=== PATIENT | female | born 1960 | race Caucasian/White ===

== ENCOUNTER 2017-02-18 07:23 | Emergency (ER) | payer BC ==
[2017-02-18 07:45] LABS: Glucose,Whole Blood 124 mg/dL (75-99)
[2017-02-18] MEDS ORDERED: ONDANSETRON 4 MG/2 ML VIAL IVP STA (07:58)
[2017-02-18] MEDS ORDERED: RX INFO: IV CONTRAST WAS GIVEN 1 EACH MISC MISCELLANE PRN (07:58)
[2017-02-18] MEDS ORDERED: SODIUM CHLORIDE 0.9% 1,000 ML IV STA (07:58)
[2017-02-18 08:16] LABS: Basophils % (A) 1 %; CH 31.2; CHCM 34.4; Eosinophils # (A) 0.1 k/uL (0-0.7); Eosinophils % (A) 2 %; HCT 39.3 % (34.0-46.0); HDW 2.68; HGB 13.6 gm/dL (11.4-16.0); Luc # (Auto) 0.12; Luc % (Auto) 3; Lymphocytes # (A) 1.2 k/uL (1.0-4.8); Lymphocytes % (A) 32 %; MCH 31.4 pg (25.0-35.0); MCHC 34.5 g/dL (31.0-37.0); Mean Platelet Volume 6.5; Monocytes # (A) 0.2 k/uL (0-1.0); Monocytes % (A) 6 %; Neutrophils % (A) 55 %; RBC 4.32 m/uL (3.80-5.40); RDW 12.9 % (11.5-15.5); WBC 3.7 k/uL (3.8-10.6); WBC (Perox) 3.69
--- NOTE | 2017-02-18 08:17 | ED ---
General Adult HPI - General Chief complaint: Neuro Symptoms/Deficit Stated complaint: DIZZINESS, RT SIDE HEAVYNESS Time Seen by Provider: 02/18/17 07:32 Source: patient, RN notes reviewed, old records reviewed Mode of arrival: wheelchair Limitations: no limitations - History of Present Illness Initial comments: This is a 56-year-old female the ER for evaluation today. Patient coming in for evaluation of neurological complaints. Patient complains of right-sided facial numbness overall dizziness, ataxia and facial heaviness. Patient states she woke with symptoms at 5:30 this morning. No prior history of similar symptoms. Denies any recent trauma no specific headache. No nausea vomiting. Patient states the room does appear to spin around especially when she looks from [id number], no preferences better. She had difficulty with walking and ambulation after getting out of bed. Symptoms have persisted. No high blood pressure normal cholesterol no diabetes and a nonsmoker. With no prior history of cardiac disease or stroke. Patient has no recent travel history or sick contacts, no known fevers, patient denies ear pain or difficulties with hearing or vision - Related Data Home Medications Medication Instructions Recorded Confirmed Fish Oil/Dha/Epa [Fish Oil 1,200 1,200 mg PO MOWEFR 07/03/15 02/18/17 mg Fish Oil] Levothyroxine Sodium [Synthroid] 88 mcg PO DAILY 07/03/15 02/18/17 Multivitamins, Thera [Theragran] 1 tab PO MOWEFR 07/03/15 02/18/17 Meloxicam [Mobic] 15 mg PO TUTHSA 07/28/16 02/18/17 Cholecalciferol [Vitamin D3] 1,000 unit PO MOWEFR 02/18/17 02/18/17 Cyanocobalamin (Vitamin B-12) 5,000 mcg PO MOWEFR 02/18/17 02/18/17 [Vitamin B12] Allergies Allergy/AdvReac Type Severity Reaction Status Date / Time amoxicillin AdvReac Rash/Hives Verified 02/18/17 08:03 tramadol AdvReac Confusion Verified 02/18/17 08:03 Review of Systems ROS Statement: Those systems with pertinent positive or pertinent negative responses have been documented in the HPI. ROS Other: All systems not noted in ROS Statement are negative. Past Medical History Past Medical History: Unable to Obtain, Fibromyalgia, GERD/Reflux, Skin Disorder , Thyroid Disorder Additional Past Medical History / Comment(s): Hypoglycemia, occ migraines, Shyla's, hx palipitations, chronic pain syndrome, hx anemia, History of Any Multi-Drug Resistant Organisms: None Reported Past Surgical History: No Surgical Hx Reported, Breast Surgery, Tubal Ligation Additional Past Surgical History / Comment(s): rt Breast biopsy. D&C, Past Anesthesia/Blood Transfusion Reactions: No Reported Reaction Past Psychological History: No Psychological Hx Reported Smoking Status: Never smoker Past Alcohol Use History: None Reported Past Drug Use History: None Reported Additional Drug Use History / Comment(s): medical card - Past Family History Mother Family Medical History: Deep Vein Thrombosis (DVT), Pulmonary Embolus Father Family Medical History: Cancer General Exam - General Exam Comments Initial Comments: NIH of 0, no focal deficit Limitations: no limitations General appearance: alert, in no apparent distress Head exam: Present: atraumatic, normocephalic, normal inspection Eye exam: Present: normal appearance, PERRL, EOMI, nystagmus. Absent: scleral icterus, conjunctival injection, periorbital swelling ENT exam: Present: normal exam, mucous membranes moist Neck exam: Present: normal inspection. Absent: tenderness, meningismus, lymphadenopathy Respiratory exam: Present: normal lung sounds bilaterally. Absent: respiratory distress, wheezes, rales, rhonchi, stridor Cardiovascular Exam: Present: regular rate, normal rhythm, normal heart sounds. Absent: systolic murmur, diastolic murmur, rubs, gallop, clicks GI/Abdominal exam: Present: soft, normal bowel sounds. Absent: distended, tenderness, guarding, rebound, rigid Extremities exam: Present: normal inspection, full ROM, normal capillary refill. Absent: tenderness, pedal edema, joint swelling, calf tenderness Back exam: Present: normal inspection Neurological exam: Present: alert, oriented X3, CN II-XII intact Psychiatric exam: Present: normal affect, normal mood Skin exam: Present: warm, dry, intact, normal color. Absent: rash Course Vital Signs 02/18/17 02/18/17 07:27 08:59 Pulse Rate 72 62 Respiratory 20 Rate Blood Pressure 171/83 151/64 O2 Sat by Pulse 100 Oximetry - Reevaluation(s) Reevaluation #1: 02/18/17 09:45 Patient showing no worsening of symptoms, states symptoms are improving and has been able to walk in emergency room without difficulty Reevaluation #2: 02/18/17 09:46 Again patient is without high blood pressure not cholesterol no diabetes a nonsmoker EKG Findings - EKG Comments: EKG Findings:: EKG shows normal sinus rhythm rate of 64, LA 150, QRS 84, QTC 418 Medical Decision Making - Medical Decision Making 56 female in the ER for evaluation. This patient presents for evaluation of dizziness, vertiginous symptoms. Worse with position, CT and CTA are negative, patient's symptoms are resolving as M able to ambulate without ataxia. Patient discussed at length 15 minutes was questions answered regarding causes and symptoms of vertigo versus cerebral, peripheral. Patient understands, will likely be discharged home - Lab Data Result diagrams: 02/18/17 07:47 02/18/17 07:47 Lab Results 02/18/17 02/18/17 02/18/17 Range/Units 07:43 07:47 07:47 WBC 3.7 L (3.8-10.6) k/uL RBC 4.32 (3.80-5.40) m/uL Hgb 13.6 (11.4-16.0) gm/dL Hct 39.3 (34.0-46.0) % MCV 91.0 (80.0-100.0) fL MCH 31.4 (25.0-35.0) pg MCHC 34.5 (31.0-37.0) g/dL RDW 12.9 (11.5-15.5) % Plt Count 214 (150-450) k/uL Neutrophils % 55 % Lymphocytes % 32 % Monocytes % 6 % Eosinophils % 2 % Basophils % 1 % Neutrophils # 2.0 (1.3-7.7) k/uL Lymphocytes # 1.2 (1.0-4.8) k/uL Monocytes # 0.2 (0-1.0) k/uL Eosinophils # 0.1 (0-0.7) k/uL Basophils # 0.0 (0-0.2) k/uL PT (9.0-12.0) sec INR (<1.1) APTT (22.0-30.0) sec Sodium (137-145) mmol/L Potassium (3.5-5.1) mmol/L Chloride (98-107) mmol/L Carbon Dioxide (22-30) mmol/L Anion Gap mmol/L BUN (7-17) mg/dL Creatinine (0.52-1.04) mg/dL Est GFR (MDRD) Af Amer (>60 ml/min/1.73 sqM) Est GFR (MDRD) Non-Af (>60 ml/min/1.73 sqM) Glucose (74-99) mg/dL POC Glucose (mg/dL) 124 H (75-99) mg/dL POC Glu [employer] ID Veronica Jiang Calcium (8.4-10.2) mg/dL Phosphorus (2.5-4.5) mg/dL Magnesium (1.6-2.3) mg/dL Total Bilirubin (0.2-1.3) mg/dL AST (14-36) U/L ALT (9-52) U/L Alkaline Phosphatase (38-126) U/L Total Creatine Kinase 67 (30-135) U/L CK-MB (CK-2) 1.0 (0.0-2.4) ng/mL CK-MB (CK-2) Rel Index 1.5 Troponin I <0.012 (0.000-0.034) ng/mL Total Protein (6.3-8.2) g/dL Albumin (3.5-5.0) g/dL Urine Color Urine Appearance (Clear) Urine pH (5.0-8.0) Ur Specific [place] (1.001-1.035) Urine Protein (Negative) Urine Glucose (UA) (Negative) Urine Ketones (Negative) Urine Blood (Negative) Urine Nitrite (Negative) Urine Bilirubin (Negative) Urine Urobilinogen (<2.0) mg/dL Ur Leukocyte Esterase (Negative) Ur Squamous Epith Cells (0-4) /hpf Amorphous Sediment (None) /hpf Urine Mucus (None) /hpf 02/18/17 02/18/17 02/18/17 Range/Units 07:47 07:47 09:19 WBC (3.8-10.6) k/uL RBC (3.80-5.40) m/uL Hgb (11.4-16.0) gm/dL Hct (34.0-46.0) % MCV (80.0-100.0) fL MCH (25.0-35.0) pg MCHC (31.0-37.0) g/dL RDW (11.5-15.5) % Plt Count (150-450) k/uL Neutrophils % % Lymphocytes % % Monocytes % % Eosinophils % % Basophils % % Neutrophils # (1.3-7.7) k/uL Lymphocytes # (1.0-4.8) k/uL Monocytes # (0-1.0) k/uL Eosinophils # (0-0.7) k/uL Basophils # (0-0.2) k/uL PT 10.1 (9.0-12.0) sec INR 1.0 (<1.1) APTT 21.3 L (22.0-30.0) sec Sodium 144 (137-145) mmol/L Potassium 4.0 (3.5-5.1) mmol/L Chloride 105 (98-107) mmol/L Carbon Dioxide 29 (22-30) mmol/L Anion Gap 10 mmol/L BUN 16 (7-17) mg/dL Creatinine 0.65 (0.52-1.04) mg/dL Est GFR (MDRD) Af Amer >60 (>60 ml/min/1.73 sqM) Est GFR (MDRD) Non-Af >60 (>60 ml/min/1.73 sqM) Glucose 129 H (74-99) mg/dL POC Glucose (mg/dL) (75-99) mg/dL POC Glu [employer] ID Calcium 9.6 (8.4-10.2) mg/dL Phosphorus 4.1 (2.5-4.5) mg/dL Magnesium 2.0 (1.6-2.3) mg/dL Total Bilirubin 0.5 (0.2-1.3) mg/dL AST 27 (14-36) U/L ALT 32 (9-52) U/L Alkaline Phosphatase 51 (38-126) U/L Total Creatine Kinase (30-135) U/L CK-MB (CK-2) (0.0-2.4) ng/mL CK-MB (CK-2) Rel Index Troponin I (0.000-0.034) ng/mL Total Protein 7.6 (6.3-8.2) g/dL Albumin 4.4 (3.5-5.0) g/dL Urine Color Light Yellow Urine Appearance Cloudy H (Clear) Urine pH 8.0 (5.0-8.0) Ur Specific [place] 1.038 H (1.001-1.035) Urine Protein Negative (Negative) Urine Glucose (UA) Negative (Negative) Urine Ketones Negative (Negative) Urine Blood Negative (Negative) Urine Nitrite Negative (Negative) Urine Bilirubin Negative (Negative) Urine Urobilinogen <2.0 (<2.0) mg/dL Ur Leukocyte Esterase Small H (Negative) Ur Squamous Epith Cells 1 (0-4) /hpf Amorphous Sediment Rare H (None) /hpf Urine Mucus Rare H (None) /hpf - Radiology Data Radiology results: report reviewed (CT brain, CTA head and neck is negative for acute disease, chest x-ray is negative for acute), image reviewed Disposition Clinical Impression: Vertigo, BPPV (benign paroxysmal positional vertigo) Disposition: HOME SELF-CARE Condition: Good Instructions: Vertigo (ED) Referrals: Rom Henriquez MD [STAFF PHYSICIAN] - 1-2 days
[2017-02-18 08:25] LABS: Prothrombin Time 10.1 sec (9.0-12.0)
[2017-02-18 08:30] LABS: ALT 32 U/L (9-52); AST 27 U/L (14-36); Alkaline Phosphatase 51 U/L (38-126); Anion Gap 10 mmol/L; Blood Urea Nitrogen 16 mg/dL (7-17); Calcium 9.6 mg/dL (8.4-10.2); Carbon Dioxide 29 mmol/L (22-30); Chloride 105 mmol/L (98-107); Glucose 129 mg/dL (74-99); Non-African American GFR(MDRD) >60 (>60 ml/min/1.73 sqM); Phosphorous 4.1 mg/dL (2.5-4.5); Sodium 144 mmol/L (137-145); Total Bilirubin 0.5 mg/dL (0.2-1.3); Total Protein 7.6 g/dL (6.3-8.2)
[2017-02-18 08:34] LABS: Partial Thromboplastin Time 21.3 sec (22.0-30.0)
[2017-02-18 08:36] LABS: Creatine Kinase 67 U/L (30-135)
[2017-02-18 08:48] LABS: Troponin I <0.012 ng/mL (0.000-0.034)
--- NOTE | 2017-02-18 08:59 | XR ---
EXAMINATION TYPE: XR chest 2V DATE OF EXAM: 02/18/2017 8:44 AM COMPARISON: 05/25/2016 HISTORY: Shortness of breath TECHNIQUE: Frontal and lateral views of the chest are obtained. FINDINGS: Scattered senescent parenchymal changes noted. Hyperinflation compatible with COPD. Mild increased density right medial lung base may reflect developing infiltrate and/or atelectasis. Heart size is stable. Mediastinal structures are stable and grossly unremarkable. No evidence for hilar prominence. Degenerative changes dorsal spine. IMPRESSION: 1. Mild increased density right medial lung base may reflect developing infiltrate and/or atelectasis .
--- NOTE | 2017-02-18 09:08 | CT ---
EXAMINATION TYPE: CT brain wo con DATE OF EXAM: 02/18/2017 9:05 AM COMPARISON: NONE HISTORY: Rt facial heaviness with dizziness CT DLP: brain [address] of the brain was performed. The ventricles, basal cisterns and sulci overlying the cerebral convexities demonstrate mild enlargem ent. There is no evidence for intracranial hemorrhage or sulcal effacement. There is decreased attenuation about the periventricular white matter and deep white matter of both c erebral hemispheres, compatible with chronic small vessel ischemia. Differential diagnosis does inclu de demyelination. No mass effects are seen.No midline shift. Osseous calvarium is intact. If symptoms persist consider MRI. IMPRESSION: 1. Age related atrophic and chronic small vessel ischemic change without acute intracranial process s een at this time.
--- NOTE | 2017-02-18 09:13 | CT ---
EXAMINATION TYPE: CT angio head neck DATE OF EXAM: 02/18/2017 9:05 AM COMPARISON: NONE HISTORY: Rt facial heaviness with dizziness CT DLP: brain 1036, neck 251.7 mGycm CONTRAST: Performed with IV Contrast, patient injected with 65 mL of Omnipaque 350. Combination Contrast CTA cervical carotids and [place] CTA cervical carotids with 3-D recons truction Contrast CTA of the cervical carotids was performed 3-D reconstruction imaging obtained at a separate workstation. Right carotid system: No significant plaque is seen of the right common carotid artery. There is No significant plaque also noted at the carotid bulb and proximal ICA. No significant diameter reductio n. ECA is patent. Right vertebral artery appears unremarkable. Left carotid system: No significant plaque is seen of the left common carotid artery. There is No si gnificant plaque also noted at the carotid bulb and proximal ICS. No significant diameter reduction. ECA is patent. Left vertebral artery appears unremarkable. IMPRESSION: 1. No significant diameter reduction to account for the patient's symptoms. CTA [place] with 3-D reconstruction Contrast CTA of the [place] was performed 3-D reconstruction imaging obtained at a separate workstation. Vertebrobasilar system as well as intracranial portions of the internal carotid arteries and their ma [place] tributaries are patent. I do not see evidence for sizable aneurysm or vascular malformation. Pl ease note MRI provides greater sensitivity and specificity. Visualized brain appears grossly unremar kable. IMPRESSION: 1. No siginificant abnormality.
[2017-02-18 09:34] LABS: Amorphous Sediment,Urine Rare /hpf; Appearance,Urine Cloudy (Clear); Bilirubin,Urine Negative (Negative); Glucose,Urine (UA) Negative (Negative); Ketones,Urine Negative (Negative); Leukocyte Esterase,Urine Small (Negative); Mucus,Urine Rare /hpf; Nitrite,Urine Negative (Negative); Particle Count 6960; Protein,Urine Negative (Negative); Specific Gravity,Urine 1.038 (1.001-1.035); Squamous Epithelial Cell,Urine 1 /hpf (0-4); UA Billing (MACRO vs. MICRO) MICRO; Urobilinogen,Urine <2.0 mg/dL (<2.0)
[2017-02-18 10:26] VITALS: BP 140/67; PULSE 75; RESP 18; TEMP 97
== END 2017-02-18 10:23 | disposition home or self-care (01) ==
LOC: EC 07:23
DX: H81.10 Benign paroxysmal vertigo, unspecified ear (principal); E07.9 Disorder of thyroid, unspecified; M79.7 Fibromyalgia; G89.4 Chronic pain syndrome; Z79.1 Long term (current) use of non-steroidal anti-inflammatories (NSAID); Z79.899 Other long term (current) drug therapy; Z88.0 Allergy status to penicillin; Z88.6 Allergy status to analgesic agent
CPT/HCPCS: 99285; 96374; 96361; 36415; 93005; 80053; 82550; 82553; 83735; 84100; 84484; 85025; 85610; 85730; 81001; 87086; 71020; 70496; 70450; 70498; Q9967; J2405

== ENCOUNTER → 2017-03-18 | Outpatient (CLI) | payer BC ==
--- NOTE | 2017-03-18 10:34 | MM ---
Reason for exam: clinical finding. Last mammogram was performed 1 year and 10 months ago. History: Patient is postmenopausal. Family history of breast cancer in maternal aunt and breast cancer in maternal cousin. Benign excisional biopsy of the right breast, 1996. Indicated problem(s): pain in the right breast. Physical Findings: Nurse did not find any significant physical abnormalities on exam. MG 3D Diag Mammo W/Cad ARSENIO Bilateral CC and MLO view(s) were taken. Prior study comparison: May 30, 2015, bilateral MG screening mammo w CAD. The breast tissue is heterogeneously dense. This may lower the sensitivity of mammography. There is no discrete abnormality including area of concern. No significant new findings when compared with previous films. These results were verbally communicated with the patient and result sheet given to the patient on 03/18/17. ASSESSMENT: Incomplete: need additional imaging evaluation, BI-RAD 0 RECOMMENDATION: Ultrasound of the right breast. Manage patient on a clinical basis.
--- NOTE | 2017-03-18 10:36 | USB ---
Reason for exam: additional evaluation requested from abnormal screening. History: Patient is postmenopausal. Family history of breast cancer in maternal aunt and breast cancer in maternal cousin. Benign excisional biopsy of the right breast, 1996. US Breast RT Right breast ultrasound includes all four quadrants, the retroareolar region and axilla. Finding demonstrates prominent ducts at 8 o'clock, dilated ducts at 9 o'clock and a 1.7 x 1.6 x 1.4cm hyperechoic node at the axilla. These results were verbally communicated with the patient and result sheet given to the patient on 03/18/17. ASSESSMENT: Probably benign, BI-RAD 3 RECOMMENDATION: Ultrasound of the right breast in 6 months. Manage patient on a clinical basis.
== END | disposition home or self-care (01) ==
LOC: RADMAMWWP 07:41
PROVIDERS: ATTEND Family Medicine
DX: N64.4 Mastodynia (principal); R92.8 Other abnormal and inconclusive findings on diagnostic imaging of breast
CPT/HCPCS: 76641; G0204; G0279

== ENCOUNTER → 2018-03-22 | Outpatient (CLI) | payer BC ==
--- NOTE | 2018-03-22 10:46 | XR ---
EXAMINATION TYPE: XR knee complete RT DATE OF EXAM: 03/22/2018 COMPARISON: NONE HISTORY: 57-year-old female right knee pain TECHNIQUE: 3 views FINDINGS: Mild to moderate degenerative spurring in the medial and patellofemoral compartments. Weightbearing v iew could better assess the degree of cartilage and joint space narrowing. There is a moderate knee j oint effusion. Extensor mechanism appears intact. No acute fracture or dislocation. IMPRESSION: 1. Osteoarthrosis involving the medial and patellofemoral compartments. Weightbearing view could bett er assess the degree of cartilage and joint space narrowing. 2. Moderate knee joint effusion. MRI could assess for internal derangement if indicated. 3. No acute osseous abnormality seen.
== END | disposition home or self-care (01) ==
LOC: RADXRMAIN 09:07
PROVIDERS: ATTEND Physician Assistant
DX: M17.11 Unilateral primary osteoarthritis, right knee (principal); M25.461 Effusion, right knee

== ENCOUNTER → 2018-04-10 | Outpatient (CLI) | payer BC ==
--- NOTE | 2018-04-10 13:51 | MR ---
EXAMINATION TYPE: MR knee RT wo con DATE OF EXAM: 04/10/2018 COMPARISON: NONE HISTORY: Right knee pain TECHNIQUE: Multiplanar, multisequence images of the knee is performed without IV contrast. FINDINGS: MEDIAL MENISCUS: Tear posterior horn medial meniscus. Anterior horn is intact. LATERAL MENISCUS: Anterior and posterior horns are intact without tear. CRUCIATE LIGAMENTS: The anterior and posterior cruciate ligaments are intact and unremarkable. COLLATERAL LIGAMENTS: The medial collateral ligament and lateral collateral ligament complex are inta ct and unremarkable. EXTENSOR MECHANISM: Visualized quadriceps and patellar tendons are intact. EFFUSION: Moderate suprapatellar joint effusion. POPLITEAL CYST: No popliteal/salas cyst. TRICOMPARTMENT SPACES: Moderate narrowing medial tibiofemoral joint space. Moderate patellofemoral bobbi int space narrowing. Patellar spur formation as well as a strain about the margins of the condyles an d tibial plateaus. CARTILAGE: Cartilaginous thinning noted without focal defect identified. BONE MARROW SIGNAL: Bone marrow contusion medial femoral condyle to a lesser extent edema of the medi al tibial plateau. No fracture visible. OTHER: No additional significant abnormality is appreciated. IMPRESSION: 1. Oblique tear posterior horn medial meniscus. 2. Joint effusion. 3. Changes of osteoarthritis.
== END | disposition home or self-care (01) ==
LOC: RADMRIMAIN 13:10
PROVIDERS: ATTEND Family Medicine
DX: S83.241A Other tear of medial meniscus, current injury, right knee, initial encounter (principal); M17.11 Unilateral primary osteoarthritis, right knee

== ENCOUNTER → 2018-10-18 | Outpatient (CLI) | payer BC | END | disposition home or self-care (01) | LOC: LABPAT 09:32 | PROVIDERS: ATTEND Orthopaedic Surgery | DX: Z01.812 Encounter for preprocedural laboratory examination (principal) | CPT/HCPCS: 87070 ==

== ENCOUNTER → 2018-10-18 | Outpatient (CLI) | payer BC ==
--- NOTE | 2018-10-18 10:02 | MM ---
Reason for exam: clinical finding. Last mammogram was performed 1 year and 7 months ago. History: Patient is postmenopausal. Family history of breast cancer in maternal aunt and breast cancer in maternal cousin. Benign excisional biopsy of the right breast, 1996. Physical Findings: Nurse did not find any significant physical abnormalities on exam. MG 3D Diag Mammo W/Cad ARSENIO Bilateral CC and MLO view(s) were taken. Prior study comparison: March 18, 2017, bilateral MG 3d diag mammo w/cad ARSENIO. May 30, 2015, bilateral MG screening mammo w CAD. The breast tissue is heterogeneously dense. This may lower the sensitivity of mammography. No significant new findings when compared with previous films. These results were verbally communicated with the patient and result sheet given to the patient on 10/18/18. ASSESSMENT: Benign, BI-RAD 2 RECOMMENDATION: Routine screening mammogram of both breasts in 1 year.
--- NOTE | 2018-10-18 10:56 | USB ---
Reason for exam: follow-up at short interval from prior study. History: Patient is postmenopausal. Family history of breast cancer in maternal aunt and breast cancer in maternal cousin. Benign excisional biopsy of the right breast, 1996. US Breast RT Right complete breast ultrasound includes all four quadrants, the retroareolar region and axilla. Finding demonstrates duct ectastia at 7 o'clock, 8 o'clock, 9 o'clock and at the posterior nipple. These results were verbally communicated with the patient and result sheet given to the patient on 10/18/18. ASSESSMENT: Benign, BI-RAD 2 RECOMMENDATION: Routine screening mammogram of both breasts in 1 year.
== END | disposition home or self-care (01) ==
LOC: RADMAMWWP 08:18
PROVIDERS: ATTEND Family Medicine
DX: N64.4 Mastodynia (principal)
CPT/HCPCS: 77062; 77066

== ENCOUNTER → 2018-10-27 | Outpatient (CLI) | payer BC ==
[2018-10-27 11:20] VITALS: BP 136/84; PULSE 87; RESP 18; TEMP 97.5; BMI 35.5
--- NOTE | 2018-10-27 11:42 | P.GSHP ---
History of Present Illness H&P Date: 10/27/18 Chief Complaint: breast pain The patient is a 58-year-old white female who is status post bilateral mammogram and right breast ultrasound on [id number]. The radiographic findings were felt to be benign and routine screening mammogram of both breasts of 1 year was recommended. The pain in under the right breast and extends up in the are of the axilla. It hurts with pressure and feels heavy. The patient has not noted any lumps or masses in her breast. No nipple discharge or changes. No history of trauma or infection in the breast. The pain in not cyclical. The patient does not smoke, however, her smokes 1 1/2 PPD. He does smoke in the house. She drinks at least 3 cups of caffeniated coffee/day. She does not drink pop. She eats chocolate daily. Family History: maternal grandmother: stomach maternal aunt: breast maternal aunt: breast second aunt maternal aunt: brain cancer maternal cousin: breast postmenopausal father: lymphoma paternal uncles (3): all cancer not know the type Hormonal history: Menarche:11 : 3, two live and one , age at first 18, breast fed: yes menopause: 49 BCP: 3 years hormones: none Past surgical history: 1. Right breast biopsy 2. knee surgery 3. tubal 4. freezing cervical dysplasia Past Medical History: 1. Shyla's thyroiditis 2. Fibromyalgia 3. Arthritis 4. History of pernicious anemia 5. low vitamen D Social History: smoke: none alcohol: 1 drink/month drugs: Medical marijuana for the fibromyalgia, uses daily - Constitutional Constitutional: Reports sweats - EENT Eyes: bilateral blurred vision (occasionally), denies pain Ears: deny: decreased hearing, tinnitus Ears, nose, mouth and throat: Denies headache, Denies sore throat - Breasts Breasts: bilateral: as per HPI - Cardiovascular Cardiovascular: Reports shortness of breath, Denies chest pain - Respiratory Respiratory: Denies cough, Denies 7 - Gastrointestinal Gastrointestinal: Denies abdominal pain, Denies diarrhea, Denies nausea, Denies vomiting - Genitourinary (Female) Genitourinary: Denies dysuria, Denies hematuria - Musculoskeletal Comment: arthritis Musculoskeletal: Reports myalgias - Integumentary Integumentary: Reports rash - Neurological Comment: Bels palsy - Psychiatric Psychiatric: Denies anxiety, Denies depression - Endocrine Comment: Shyla's thyroiditis - Hematologic/Lymphatic Comment: none - Allergic/Immunologic Allergic/Immunologic: Reports seasonal allergies Past Medical History Past Medical History: Fibromyalgia, GERD/Reflux, Skin Disorder, Thyroid Disorder Additional Past Medical History / Comment(s): Hypoglycemia, occ migraines, Shyla's, hx palipitations, chronic pain syndrome, hx anemia, History of Any Multi-Drug Resistant Organisms: None Reported Past Surgical History: Breast Surgery, Tubal Ligation Additional Past Surgical History / Comment(s): rt Breast biopsy; D&C; left knee surgery Past Anesthesia/Blood Transfusion Reactions: No Reported Reaction Past Psychological History: No Psychological Hx Reported Smoking Status: Never smoker Past Alcohol Use History: None Reported Past Drug Use History: None Reported Additional Drug Use History / Comment(s): medical card - Past Family History Mother Family Medical History: Deep Vein Thrombosis (DVT), Pulmonary Embolus Father Family Medical History: Cancer Medications and Allergies Home Medications Medication Instructions Recorded Confirmed Type Fish Oil/Dha/Epa [Fish Oil 1,200 1,200 mg PO MOWEFR 07/03/15 10/27/18 History mg Fish Oil] Levothyroxine Sodium [Synthroid] 88 mcg PO QAM 07/03/15 10/27/18 History Multivitamins, Thera [Theragran] 1 tab PO MOWEFR 07/03/15 10/27/18 History Meloxicam [Mobic] 15 mg PO HS 07/28/16 10/27/18 History Cholecalciferol [Vitamin D3] 1,000 unit PO MOWEFR 02/18/17 10/27/18 History Clobetasol Propionate [Temovate 1 applic TOPICAL DAILY 10/27/18 10/27/18 History 0.05% Oint] Allergies Allergy/AdvReac Type Severity Reaction Status Date / Time amoxicillin AdvReac Rash/Hives Verified 10/27/18 11:12 tramadol AdvReac Confusion Verified 10/27/18 11:12 Surgical - Exam Vital Signs Temp Pulse Resp BP Pulse Ox 97.5 F L 87 18 136/84 98 10/27/18 11:13 10/27/18 11:13 10/27/18 11:13 10/27/18 11:13 10/27/18 11:13 BMI 35.5 - General well developed, well nourished, no distress - Eyes normal ocular movement - ENT no hearing loss, no congestion - Neck no masses, trachea midline - Respiratory normal respiratory effort, clear to auscultation absent: dullness, wheezing, rales - Cardiovascular Rhythm: regular Heart Sounds: normal: S1, S2 - Abdomen Abdomen: soft, non tender, no guarding, no rigid, no rebound - Integumentary normal turgor - Neurologic no disoriented, no combative - Psychiatric oriented to time, oriented to person, oriented to place, speech is normal, memory intact Breast examination: Right breast: Multi-positional examination no dominant masses or nodules of concern; the right breast is slightly larger than the left breast, on examination there is mild tenderness to palpation of the inframammary fold area as well as the lateral aspect of the breast extending up towards the axilla no discrete masses are noted in this region Right axilla: No adenopathy of concern Left breast: Multi-positional examination no dominant masses or nodules of concern Left axilla: No adenopathy of concern Results Mammogram and ultrasound results reviewed Assessment and Plan Assessment: Impression: 1. Fibrocystic breast changes with right breast discomfort 2. Asymmetry of the breast with the right being slightly larger than the left 3. No discrete masses in the breast of concern 4. Fibromyalgia 6. Arthritis 7. Shyla's thyroiditis Plan: 1. The pain in the breast is most likely secondary to fibrocystic changes we will discuss decreasing caffeine intake as well as exposure to secondhand smoke 2. Medical management of medical conditions 3. Repeat bilateral mammogram in 1 year 4. Follow up sooner if any questions of concern 5. Medical management of medical conditions Cc: Dr. Anderson
== END | disposition home or self-care (01) ==
LOC: WWCWWP 11:06
PROVIDERS: ATTEND Surgery
DX: Z53.9 Procedure and treatment not carried out, unspecified reason (principal)

== ENCOUNTER 2018-11-21 09:03 | Inpatient (IN) | payer BC ==
[2018-11-16 08:51] VITALS: BMI 35.5
--- NOTE | 2018-11-20 08:43 | HP ---
HISTORY AND PHYSICAL CHIEF COMPLAINT: Right knee pain. HISTORY OF PRESENT ILLNESS: The patient is a 58-year-old, self-employed female who presents with progressive right knee pain for the past several years. It has worsened recently. She is having pain with weightbearing activities that limit her. She has tried medications in addition to injections with only partial temporary relief. PAST MEDICAL HISTORY: Significant for hypothyroidism, arthritis, hyperlipidemia. PAST SURGICAL HISTORY: Negative. CURRENT MEDICATIONS: 1. Levothyroxine. 2. Mobic. She has allergies to AMOXICILLIN and TRAMADOL. FAMILY HISTORY: Significant for heart disease and cancer. SOCIAL HISTORY: Negative for current tobacco or alcohol use. REVIEW OF SYSTEMS: A 16 point review of systems otherwise reviewed and is noncontributory. PHYSICAL EXAMINATION: On examination, the patient is approximately 5 foot tall, 180 pounds of endomorphic habitus. HEENT exam is nonfocal. Neck is supple. She has painless passive motion of the right hip. Straight leg raise is negative, active motion right knee, -10 to 105 degrees of flexion. She has a moderate effusion. She is tender about the medial joint line. Collaterals are stable, Alex is negative, Ray's is equivocal. She has genu varum alignment. Her distal neurovascular exam otherwise appears intact in the right lower extremity. X-rays obtained in the office previously show severe medial compartment osteoarthrosis. IMPRESSION: Right knee severe medial compartment osteoarthrosis. RECOMMENDATIONS: I talked to the patient at length regarding her condition and treatment options. She is quite limited because of pain related to her osteoarthrosis despite conservative measures. She opts to proceed with surgery. We will plan to proceed with right total knee arthroplasty. Risks and benefits are discussed at length in layman's terms. We will institute DVT prophylaxis postoperatively. The patient underwent preoperative medical evaluation and clearance by Dr. Anderson. MMODL / IJN: [id number] /
[~2018-11-21 09:03] MED LIST: LIDOCAINE 1% 20 ML VIAL (10MG/ML) FOR IV START INTRADERMA PRN; MIDAZOLAM (PF) 2 MG/2 ML VIAL IV PRN; SCOPOLAMINE 1.5MG/72HR PATCH TRANSDERM ONE; TRANEXAMIC ACID 1,000 MG in SODIUM CHLORIDE 0.9% 50 ML IVPB ONE; ceFAZolin IN SWFI 2 GM/20 ML SYRINGE IVP ONE
[2018-11-21] MEDS: ACETAMINOPHEN TAB 500 MG TAB PO ONE ×2 (09:36→15:53)
[2018-11-21] MEDS: MELOXICAM 7.5 MG TAB PO ONE ×2 (09:36→15:53)
[2018-11-21] MEDS: LACTATED RINGERS 1,000 ML IV SCH (09:45)
[2018-11-21 09:48] LABS: Glucose,Whole Blood 105 mg/dL (75-99)
[2018-11-21] MEDS: DEXAMETHASONE SOD PHOSPHATE 10 MG/ML 1 ML VIAL IV ONE ×2 (09:53→16:12)
[2018-11-21] MEDS: ONDANSETRON 4 MG/2 ML VIAL IVP ONE ×2 (09:53→16:13)
[2018-11-21] MEDS ORDERED: ROPIVACAINE 246.25 MG, EPINEPHrine 0.5 MG, KETOROLAC 30 MG, cloNIDine HCL/PF 80 MCG, WA... MISCELLANE ONE ×5 (09:55)
--- NOTE | 2018-11-21 10:15 | P.OP ---
Date of Procedure: 11/21/18 Preoperative Diagnosis: Severe left knee tricompartmental osteoarthrosis Postoperative Diagnosis: Same Procedure(s) Performed: Left total knee arthroplasty-posterior stabilized-cemented Implants: Depuy Attune size 6 narrow cemented femoral component, size 5 cemented tibial component, 9 mm articular surface, 35 mm cemented patellar component. This is a posterior stabilized implant. Anesthesia: regional, local, spinal Surgeon: Brandt Adame Record Pressman #1: Juan Oakes Estimated Blood Loss (ml): 50 Pathology: other (Bone fragments) Condition: stable Disposition: PACU Indications for Procedure: The patient's a 58-year-old female who presents with progressive left knee pain secondary to osteoarthrosis despite conservative measures. A discussion of the risks and benefits of operative intervention versus continued conservative measures was made with patient. She opted to proceed with surgery. Operative risks to include infection, neurovascular injury, development of blood clots, possible fracture, possible component loosening and need for subsequent procedures was discussed. Informed consent was obtained. Operative Findings: as below Description of Procedure: The patient was brought to the operating room, and after induction of spinal anesthesia the left lower extremity was prepped and draped in a normal fashion. The tourniquet was inflated to 270 mm marker. A longitudinal incision extending 3 finger breaths above the superior pole of patella extending to the medial aspect the tibial tubercle was then made. The skin and subcutaneous tissues were divided sharply. Electrocautery was used for hemostasis. A medial parapatellar arthrotomy was performed. The medial soft tissues to include the superficial and deep portions of the medial collateral ligament were elevated subperiosteally. The patella was everted. A portion of the retropatellar fat pad was excised sharply. The anterior cruciate ligament was sacrificed. Blunt retractors were placed. A starting hole was made in the distal femur 1 cm anterior to the posterior cruciate ligament origin. An intramedullary femoral guide was then inserted planning on 5 valgus distal cut with 9 mm distal resection. The cutting block was pinned in place. The distal cut was then made. The posterior referencing sizing guide was utilized. I felt size 6 was most appropriate. 3 of external rotation was built into the system and verified off the trans-epicondylar axis and the posterior condyles. The cutting block was pinned in place. The anterior, posterior, and chamfer cuts then made. Bone fragments were removed. The intercondylar guide was placed and the notch cut was made with a sagittal saw. The bone block was removed in one fragment. The trial component was then placed. There is good anterior to posterior and medial to lateral fit. The distal peg holes were drilled. The trial component was removed. Attention was then paid towards preparing the proximal femur. An extra medullary guide was utilized in line with the tibial shaft and second metatarsal distally. I planned on 2 mm resection from the medial compartment. The cutting block was pinned in place. The proximal tibial cut was then made. The bone was removed in one fragment. The remnants of the medial and lateral menisci were excised at the capsular junction with electrocautery. The tibia sized most appropriately at size 5. The trial femoral and tibial components were placed along with a 9 mm articular surface. I was able to obtain full flexion and extension with internal and external rotation. After several flexion and extension cycles, the tibial rotation was marked with electrocautery line with the medial one third of the tibial tubercle. Attention was then paid towards preparing the patella. A patella reamer was utilized taking stem to 14 mm of bone stock. A good flush cut was made. The patella sized most appropriately 35 mm. The peg holes were drilled. The trial components placed. I had good patellofemoral tracking with no hands technique. The trial components were then removed. The tibia was prepared in the appropriate rotation with appropriate drill and keel punch. The posterior osteophytes were removed with a curved osteotome. The flexion and extension gaps were checked and felt to be symmetric at 9 mm. A trial components were then removed. The posterior soft tissues were injected with ropivacaine. The bony surfaces were prepared with pulsatile lavage and dried. The tibial component was then cemented place was fully seated. Excess cement was removed. The femoral component cemented place and was fully seated. Excess cement was removed. The trial 9 mm articular surface was placed and the knee was put in full extension. The patella component was cemented place. After the cement had sufficiently hardened, the knee was again taken through a range of motion. Again I was able to obtain full flexion and extension with varus and valgus stress. The trial 9 mm articular surface was removed and the final one inserted. This was fully seated. Care was taken to avoid any soft tissue interposition. Pulsatile lavage was again utilized. The medial parapatellar arthrotomy was closed with #2 Ethibond suture. The tourniquet was deflated with approximately 60 total tourniquet time. Final hemostasis was obtained with the cautery. There was minimal bleeding therefore a deep drain was not placed. The subcutaneous tissues were reapproximated with interrupted 2 -0 Vicryl sutures. The skin was reapproximated with 3-0 subcuticular strata fix suture. Skin tape and adhesive was applied. A sterile dressing was applied. The patient was awoken from sedation and transferred to recovery room in good condition. Blood loss was estimated at 50 mL. No complications were incurred. Sponge and needle counts were correct at the end of the case. Robb ROMERO assisted during the major components of this case to include exposure , bone resection, implantation, and closure.
[2018-11-21] MEDS ORDERED: ROPIVACAINE 1,100 MG, SODIUM CHLORIDE 0.9% 500 ML 330 ML MISCELLANE PRN ×2 (10:29)
--- NOTE | 2018-11-21 10:31 | P.ONQ ---
Anesthesiology Proc Note - PNB - Peripheral Nerve Block Performed Right Adductor Canal Infusion Time Out Performed: Yes (1007) Procedure Start Time: 10:10 Procedure Stop Time: 10:20 Indication: Acute Post-Operative Pain, Dx/Pain Location (Right Knee Pain), Requested by physician Sedation Type: Sedate with meaningful contact maintained Preparation: Sterile Prep Position: Supine Catheter: Indwelling Needle Types: On-Q Needle Size: 100mm (4") Technique: Ultrasound Injectate: 0.5% Ropivacaine (see comment for volume) (20ml) Blood Aspirated: No Pain Paresthesia on Injection Noted: No Resistance on Injection: Normal Events: Uneventful and Well Tolerated
[2018-11-21] MEDS ORDERED: SODIUM CHLORIDE 0.9% 100 ML BAG ONE (10:45)
[2018-11-21] MEDS ORDERED: TRANEXAMIC ACID 1,000 MG/10 ML VIAL ONE (10:45)
[2018-11-21] MEDS ORDERED: fentaNYL (PF) 50 MCG/ML 2 ML AMP ONE (10:45)
[2018-11-21] MEDS ORDERED: PROPOFOL 10 MG/ML 20 ML VIAL IV ONE (10:45)
[2018-11-21] MEDS ORDERED: MIDAZOLAM 2 MG/2 ML VIAL ONE (10:45)
[2018-11-21] MEDS ORDERED: ceFAZolin 3,000 MG in SODIUM CHLORIDE 0.9% IRRIGATIO 3,000 ML IRRIGATION ONE (11:21)
[2018-11-21] MEDS ORDERED: LACTATED RINGERS 1,000 ML IV ONE (11:41)
[2018-11-21] MEDS ORDERED: MAGNESIUM HYDROXIDE 2,400 MG/10 ML CUP PO PRN (12:19)
[2018-11-21] MEDS ORDERED: ONDANSETRON 4 MG/2 ML VIAL IVP PRN (12:19)
[2018-11-21] MEDS ORDERED: NALOXONE 0.4 MG/ML 1 ML VIAL IV PRN (12:19)
[2018-11-21] MEDS ORDERED: HYDROmorphone 0.5 MG/0.5 ML SYRINGE IVP PRN ×2 (12:19)
[2018-11-21] MEDS ORDERED: HYDROcodone/APAP 5-325MG 1 EACH TAB PO PRN (12:19)
--- NOTE | 2018-11-21 12:47 | P.OP ---
Date of Procedure: 11/21/18 Preoperative Diagnosis: Right knee severe tricompartmental osteoarthrosis Postoperative Diagnosis: Same Procedure(s) Performed: Right total knee mblqvgdxlrsu-otlueovz-tvwvyrot retaining Implants: Depuy Attune size 4 narrow cemented femoral component, size 4 cemented tibial component, 10 mm articular surface, 32 mm cemented patellar component. This is a cruciate retaining implant. Anesthesia: regional, local, spinal Surgeon: Brandt Adame Outbound Telemarketer #1: Juan Oakes Estimated Blood Loss (ml): 50 Pathology: other (Bone fragments) Condition: stable Disposition: PACU Indications for Procedure: The patient is a 58-year-old female who presents with progressive right knee pain secondary osteoarthrosis despite conservative measures. A discussion of the risks and benefits of operative intervention versus continued conservative measures was made with the patient. She opted proceed with surgery. Operative risks to include infection, neurovascular injury, development of blood clots, possible component loosening, possible component failure and need for subsequent procedures was discussed. Informed consent was obtained. Operative Findings: As below Description of Procedure: The patient was brought to the operating room, and after induction of spinal anesthesia the right lower extremity was prepped and draped in a normal fashion. The tourniquet was inflated to 270 mmHg. A longitudinal incision extending 3 finger breaths above the superior pole of the patella extending to the medial aspect the tibial tubercle was then made. The skin and subcutaneous tissues were divided sharply. Electrocautery was used for hemostasis. A medial parapatellar arthrotomy was then performed. The medial soft tissues to include the superficial and deep portions of the medial collateral ligament as well as the medial hamstring tendons were elevated subperiosteally. The proximal medial tibia osteophytes were carefully removed. The patella was everted. The knee was flexed. A portion of the retropatellar fat pad was excised sharply. The anterior cruciate ligament was sacrificed. A starting hole was made in the distal femur 1 cm anterior to the posterior cruciate origin. An intramedullary femoral guide was gently inserted planning on 5 valgus distal cut with 9 mm distal resection. The cutting block was pinned in place. The distal cut was then made. The posterior referencing sizing guide was utilized. 3 of external rotation was built into the system and verified off the trans-epicondylar axis and the posterior condyles. I felt size 4 narrow was most appropriate. The cutting block was pinned in place. The anterior, posterior, and chamfer cuts were then made. The bone fragments were removed. A sulcus cut was then made with the appropriate guide. The trial size for femoral component was then placed and was fully seated. There was good anterior to posterior and medial to lateral fit. The distal peg holes were then drilled. The trial component was then removed. Attention was then paid towards preparing the proximal tibia. An extra medullary guide was utilized in line with the tibial shaft and second metatarsal distally. A 7 posterior slope was planned. I planned on 2 mm resection from the medial compartment. The cutting block was pinned in place. The proximal tibial cut was then made. The bone was removed in one fragment. The remnants of the medial and lateral menisci were excised the capsule junction with electrocautery. The tibia sized most appropriately at size 4. The posterior osteophytes off the distal femur were carefully removed with a curved osteotome. The trial tibial and femoral components were placed along with a 10 millimeters articular surface. I was able to obtain full flexion and extension with good stability with varus and valgus stress. After several flexion and extension cycles, the tibial rotation was marked with electrocautery in line with the medial one third of the tibial tubercle. Attention was then paid towards preparing the patella. A patella reamer was utilized taking this down to 14 mm of bone stock. A good flush cut was made. The patella sized most appropriately at 32 millimeters. The peg holes were then drilled. The trial component was placed. The knee was taken through a range of motion. I had good patellofemoral tracking with no hands technique. The trial components were then removed. The tibia was prepared in the appropriate rotation with appropriate drill and keel punch. The flexion and extension gaps were checked and felt to be symmetric. The posterior soft tissues were injected with ropivacaine. The bony surfaces were prepared with pulsatile lavage and dried. The deep tibial component was then cemented in place and was fully seated. Excess cement was removed. The femoral component was cemented in place and was fully seated. Again excess cement was removed. The trial 10 millimeters surface was then inserted in the knee was put in full extension. The patella component was cemented in place. After the cement had sufficiently hardened, the knee was again taken through a range of motion. Again there was good stability in flexion and extension with varus and valgus stress. The trial articular surface was then removed. The final articular surface was placed and was impacted. Care was taken to avoid any soft tissue interposition. Pulsatile lavage was again utilized. The tourniquet was deflated with approximately 70 minutes total tourniquet time. There was minimal drainage therefore a deep drain was not placed. The medial parapatellar arthrotomy was then closed with #2 Ethibond suture. The subcutaneous tissues were reapproximated interrupted 2-0 Vicryl sutures. The skin was reapproximated with 3-0 subarticular strata fix suture. Skin tape and adhesive was applied. A sterile dressing was applied. The patient was then awoken from sedation and transferred to recovery room in good condition. Blood loss was estimated at 50 milliliters. No complications were incurred. Sponge and needle counts were correct at the end the case. Robb ROMERO assisted during the major components this case to include exposure, bone resection, and implantation.
--- NOTE | 2018-11-21 13:10 | XR ---
EXAMINATION TYPE: XR knee limited RT DATE OF EXAM: 11/21/2018 CLINICAL HISTORY: Right knee pain and arthritis status post total knee replacement. TECHNIQUE: Portable AP and crosstable lateral views of the right knee are obtained immediately posto peratively. COMPARISON: Right knee x-ray March 22, 2018 FINDINGS: Metallic hardware from total right knee arthroplasty is seen and appears satisfactory in a lignment and position. There is evidence of recent surgery with diffuse subcutaneous gas and soft ti ssue swelling noted. IMPRESSION: METALLIC HARDWARE FROM TOTAL RIGHT KNEE ARTHROPLASTY IS SATISFACTORY IN ALIGNMENT.
[2018-11-21] MEDS: HYDROmorphone 0.5 MG/0.5 ML SYRINGE IVP PRN ×2 (13:36→14:09)
[2018-11-21] MEDS: ceFAZolin IN SWFI 2 GM/20 ML SYRINGE IVP SCH (20:01)
[2018-11-21] MEDS ORDERED: SENNOSIDES-DOCUSATE SODIUM 1 EACH TAB PO SCH (21:00)
[2018-11-21] MEDS: HYDROcodone/APAP 5-325MG 1 EACH TAB PO PRN (22:19)
[2018-11-22 02:27] VITALS: RESP 16
[2018-11-22] MEDS: ceFAZolin IN SWFI 2 GM/20 ML SYRINGE IVP SCH (02:44)
[2018-11-22] MEDS: HYDROcodone/APAP 5-325MG 1 EACH TAB PO PRN ×2 (04:59→10:18)
[2018-11-22] MEDS: LACTATED RINGERS 1,000 ML IV SCH (05:43)
[2018-11-22] MEDS ORDERED: LEVOTHYROXINE 88 MCG TAB PO SCH (06:30)
--- NOTE | 2018-11-22 06:59 | P.PN ---
Progress Note - Text Progress Note Date: 11/22/18 Postoperative day # 1 status post total knee arthroplasty, under spinal anesthesia, and adductor canal catheter placed for postoperative analgesia, currently at ropivacaine 0.2% 8 mL per hour and continuous infusion, visual analogue scale is 3/10, patient using oral pain medication for breakthrough pain. Assessment and plan= Acute postoperative pain, adductor canal catheter for pain control, pain is well controlled we'll continue the same management.
[2018-11-22 07:27] VITALS: BP 107/68; PULSE 64; TEMP 98
[2018-11-22 08:22] LABS: Basophils % (A) 0 %; Eosinophils % (A) 0 %; HCT 34.4 % (34.0-46.0); HGB 11.1 gm/dL (11.4-16.0); Lymphocytes # (A) 1.7 k/uL (1.0-4.8); Lymphocytes % (A) 15 %; MCH 30.5 pg (25.0-35.0); MCHC 32.3 g/dL (31.0-37.0); MCV 94.4 fL (80.0-100.0); Mean Platelet Volume 6.9; Monocytes # (A) 0.7 k/uL (0-1.0); Monocytes % (A) 6 %; Neutrophils # (A) 8.7 k/uL (1.3-7.7); Neutrophils % (A) 78 %; Platelet Count 212 k/uL (150-450); RBC 3.64 m/uL (3.80-5.40); RDW 12.8 % (11.5-15.5); WBC 11.3 k/uL (3.8-10.6)
[2018-11-22] MEDS ORDERED: RIVAROXABAN 10 MG TAB PO SCH (09:00)
--- NOTE | 2018-11-22 10:55 | P.PN ---
Subjective Progress Note Date: 11/22/18 Principal diagnosis: Status post right total knee arthroplasty Patient is evaluated at bedside today, she is doing very well. Her pain is well -controlled. She is ambulating well with therapy. Denies any chest pain or shortness of breath at this time. Objective - Vital Signs Vital signs: Vital Signs Temp 98 F 11/22/18 07:26 Pulse 64 11/22/18 07:26 Resp 16 11/22/18 07:26 BP 107/68 11/22/18 07:26 Pulse Ox 93 L 11/22/18 07:26 Intake & Output 11/21/18 11/22/18 11/22/18 18:59 06:59 18:59 Intake Total 1827 450 Output Total 50 Balance 1777 450 Weight 82.554 kg Intake: IV 1601 Oral 226 450 Output: Estimated Blood Loss 50 Other: Voiding Method Toilet # Voids 1 - Exam Right lower extremity: Incision is clean, dry, and intact. The exofin fusion tape is in good condition. There is minimal soft tissue swelling and ecchymosis surrounding the medial and lateral aspects of the incision. Calf is soft, no tenderness with palpation. Plantar flexion, dorsiflexion, EHL, FHL are intact. Sensory exam to light touch throughout the extremity is intact, dorsal pedis pulses 2+. - Labs CBC & Chem 7: 11/22/18 07:30 Labs: Abnormal Lab Results - Last 24 Hours (Table) 11/22/18 Range/Units 07:30 WBC 11.3 H (3.8-10.6) k/uL RBC 3.64 L (3.80-5.40) m/uL Hgb 11.1 L (11.4-16.0) gm/dL Neutrophils # 8.7 H (1.3-7.7) k/uL Assessment and Plan Plan: Assessment: Postop day #1 status post right total knee arthroplasty Plan: Pain control, we'll discharge home on oral medication GI and DVT prophylaxis, Eliquis 2.5mg bid for 2 weeks Wound care instructions discussed Home therapy and nursing after discharge Medical recommendations Discharge planning: Plan for discharge home today Time with Patient: Less than 30
--- NOTE | 2018-11-22 11:00 | P.DS ---
Providers Date of admission: 11/21/18 09:03 Expected date of discharge: 11/22/18 Attending physician: Brandt Adame Consults: 11/21/18 12:19 Consult Physician Routine Consulting Provider: Sunny Anderson Consult Reason/Comments: medical management Do you want consulting provider notified?: Yes 11/21/18 15:16 Consult Physician Routine Consulting Provider: Chuckie Jansen Consult Reason/Comments: medical management Do you want consulting provider notified?: Yes Primary care physician: Sunny Anderson Hospital Course: Date of admission: 11/21/2018 Date of discharge: 11/22/2018 Admission diagnosis: Status post right total knee arthroplasty Discharge diagnosis: Same Attending physician: Dr. Adame Surgical procedures: Right total knee arthroplasty Brief history: Patient is a 58-year-old female with a history of progressive primary right knee osteoarthritis. At this point patient has failed conservative treatment measures and has opted to proceed with a elective right total knee arthroplasty. Hospital course: Details of patient's surgery can be found in operative report. Patient tolerated the procedure well and was subsequently transported to orthopedic floor. Patient's orthopeidc and medical care was provided daily. Patient had daily laboratory tests performed for evaluation of overall blood counts. Patient had daily physical therapy to include strengthening range of motion as well as education with walker ambulation. Patient had daily CPM usage as part of their physical therapy program. Patient was treated with Xarelto for their postoperative DVT prophylaxis during their inpatient stay. Patient was noted to have a relatively uneventful postoperative course. Patient reported satisfactory pain control with oral pain medications by postoperative day 0. Patient showed satisfactory progress with physical therapy. Patient moved steadily through the program and had no difficulty meeting the goals by postoperative day 1. Given patient's otherwise satisfactory course and having met physical therapy goals, plan is to discharge patient home on postoperative day 1. Discharge condition/disposition: Patient will be discharged home in stable condition. Discharge medications: Instructions are given on resumption of patient's normal daily medications per primary care recommendation, in addition patient will be prescribed Marianna 5 mg/325 mg, Colace 100 mg, Eliquis 2.5mg. Discharge instructions: 1. Wound care and infection precautions, keep incision dry and covered while showering, no lotions, creams, moisturizers. No soaking, tubs, pools, hottubs. Do not scrub over the incision. 2. Weight-bear as tolerated with walker / cane until follow-up. 3. Ice and elevate when necessary. Do not exceed 20 minutes per hour with ice pack. 4. Utilize compression sleeve until seen at first follow up appointment. 5. Visiting nursing care. 6. Home physical therapy including home CPM. 7. Pain meds and anticoagulants per prescription. 8. Pain medication has potential to cause constipation. Increase oral fluid and fiber intake. Contact primary care provider if you have not had a bowel movement within 48 hours after discharge 9. No anti-inflammatory medication until discussed at first post operative visit, this including Motrin, Aleve, Mobic, Diclofenac. 10. Follow up in office at 2 weeks postop with Robb Oakes PA-C 11. Follow up with your primary care doctor 7-10 days after discharge. 12. Contact [facility] with any questions, . Procedures: Right total knee arthroplasty Patient Condition at Discharge: Good Plan - Discharge Summary Discharge Rx Participant: Yes New Discharge Prescriptions: New Apixaban [Eliquis] 2.5 mg PO BID #30 tab Docusate [Colace] 100 mg PO DAILY #30 capsule Hydrocodone/Acetaminophen [Marianna 5-325] 1 each PO Q6HR PRN #28 tab PRN Reason: Pain No Action Levothyroxine Sodium [Synthroid] 88 mcg PO QAM Multivitamins, Thera [Theragran] 1 tab PO MOWEFR Meloxicam [Mobic] 15 mg PO HS Loratadine-Pseudoeph 10-240 mg [Claritin-D 24 Hr] 1 tab PO Q48H Discharge Medication List Levothyroxine Sodium [Synthroid] 88 mcg PO QAM 07/03/15 [History] Multivitamins, Thera [Theragran] 1 tab PO MOWEFR 07/03/15 [History] Meloxicam [Mobic] 15 mg PO HS 07/28/16 [History] Loratadine-Pseudoeph 10-240 mg [Claritin-D 24 Hr] 1 tab PO Q48H 11/16/18 [ History] Apixaban [Eliquis] 2.5 mg PO BID #30 tab 11/22/18 [Rx] Docusate [Colace] 100 mg PO DAILY #30 capsule 11/22/18 [Rx] Hydrocodone/Acetaminophen [Marianna 5-325] 1 each PO Q6HR PRN #28 tab 11/22/18 [Rx] Follow up Appointment(s)/Referral(s): Sunny Anderson DO [Primary Care Provider] - 1 Week Juan Oakes PAC [PHYSICIAN RADIOLOGY RN] - 12/06/18 3:10 pm Activity/Diet/Wound Care/Special Instructions: Orthopedic Discharge Instructions: 1. Wound care and infection precautions, keep incision dry and covered while showering, no lotions, creams, moisturizers. No soaking, pools, hot tubs. Do not scrub over incision. 2. Weight-bear as tolerated with walker / cane until follow-up. 3. Ice and elevate when necessary. Do not exceed 20 minutes per hour with ice pack. 4. Utilize compression sleeve until seen at first follow up appointment. 5. Pain meds and anticoagulants per prescription. 6. Pain medication has potential to cause constipation. Increase oral fluid and fiber intake. Contact primary care provider if you have not had a bowel movement within 48 hours after discharge. 7. No anti-inflammatory medication until discussed at first post operative visit, this including Motrin, Aleve, Mobic, Diclofenac. 8. Follow up in office at 2 weeks postop with Robb Oakes PA-C 9. Follow up with your primary care doctor 7-10 days after discharge. 10. Contact [facility] with any questions, . Discharge Disposition: HOME WITH HOME HEALTH SERVICES
[2018-11-22] MEDS ORDERED: MULTIVITAMINS, THERA 1 EACH TAB PO SCH (12:00)
--- NOTE | 2018-11-22 12:46 | CONS ---
CONSULTATION DATE OF CONSULTATION: 11/22/2018 REASON FOR CONSULTATION: Medical management requested by Dr. Adame. CONSULTATION: This is a pleasant 58-year-old patient of Dr. Anderson who underwent right total knee arthroplasty by Dr. Adame. Chronic stable medical conditions include fibromyalgia, GERD, osteoarthritis, chronic pain, which she refers to the entire body. Postprocedure, she did walk with a therapist. Some pain is present. No nausea, vomiting or dizziness. Denies any cardiac history. Did tolerate to have breakfast. REVIEW OF SYSTEMS: CONSTITUTIONAL: None. HEENT: None. RESPIRATORY: None. CARDIOVASCULAR: None. GASTROINTESTINAL: None. GENITOURINARY: None. MUSCULOSKELETAL: Pain in joints and achiness all over the body. PSYCHIATRY: None. NEUROLOGICAL: None. PAST MEDICAL HISTORY: Past medical history of fibromyalgia, GERD, hypothyroid, osteoarthritis, chronic pain in the whole body, history of anemia, dermatitis. PAST SURGICAL HISTORY: Breast surgery, tubal ligation, right breast biopsy, left meniscus repair. SOCIAL HISTORY: Does not smoke. No alcohol. Does medical marijuana for sleeping. Is a massage therapist. FAMILY HISTORY: Family history of DVT and PE. HOME MEDICATIONS: 1. Multivitamin 1 tablet p.o. Tuesday, Tuesday and Tuesday. 2. Mobic 15 mg p.o. q.h.s. 3. Claritin-D 1 tablet p.o. q.48 hours. 4. Synthroid 88 mcg a day. 5. Assaria 5 one tablet q.6 p.r.n. 6. Colace 100 mg p.o. daily. 7. Eliquis 2.5 p.o. b.i.d. We will check what she takes that for. ALLERGIES: Allergies to AMOXICILLIN and ULTRAM. PHYSICAL EXAMINATION: On examination, temperature 98, pulse 64, respirations 16, blood pressure 107/68, pulse ox 93% on room air. GENERAL APPEARANCE: Well built, BMI 35.5. Sitting up on a chair, comfortable. EYES: Pupils equal. Conjunctivae normal. HENT: External appearance of nose and ears normal. Oral cavity normal. NECK: JVD not raised. Mass not palpable. RESPIRATORY: Effort normal. Lungs are clear. CARDIOVASCULAR: First and second sounds normal. No edema. ABDOMEN: Soft, nontender. Liver and spleen not palpable. LYMPHATIC: No lymph node palpable of the neck or axillae. PSYCHIATRY: Alert and oriented x3. Mood and affect normal. NEUROLOGICAL: Pupils equal. Cranial nerves grossly intact. Power and sensation grossly intact. MUSCULOSKELETAL: Evidence of arthritis especially in the hands. INVESTIGATIONS: White count 11.3, hemoglobin 11.1. ASSESSMENT: 1. Right total knee arthroplasty. 2. Primary osteoarthritis. 3. Chronic fibromyalgia. 4. Gastroesophageal reflux disease. 5. Hypothyroid. 6. Obesity, body mass index 35.5. PLAN: Home medications resumed. The patient has been started on Xarelto for DVT prophylaxis by Dr. Adame. Care was discussed with the patient. Questions were answered. If discharged, she should follow with Dr. Anderson. Thank you Dr. Adame. MMODL / IJN: [id number] /
== END 2018-11-22 14:45 | disposition home health service (06) | DRG 470 ==
LOC: 2ORMAIN 09:03 → 4SSUR 15:10
PROVIDERS: ADMIT Orthopaedic Surgery; ATTEND Orthopaedic Surgery
PROC: 0SRC0J9 Replacement of Right Knee Joint with Synthetic Substitute, Cemented, Open Approach (ICD-10-PCS; principal; 2018-11-21 10:35)
DX: M17.11 Unilateral primary osteoarthritis, right knee (principal); D64.9 Anemia, unspecified; M79.7 Fibromyalgia; E03.9 Hypothyroidism, unspecified; K21.9 Gastro-esophageal reflux disease without esophagitis; M21.161 Varus deformity, not elsewhere classified, right knee; G89.29 Other chronic pain; L30.9 Dermatitis, unspecified; E78.5 Hyperlipidemia, unspecified; E66.9 Obesity, unspecified; Z68.35 Body mass index [BMI] 35.0-35.9, adult; Z79.1 Long term (current) use of non-steroidal anti-inflammatories (NSAID); Z79.890 Hormone replacement therapy; Z79.899 Other long term (current) drug therapy; Z98.51 Tubal ligation status; Z88.5 Allergy status to narcotic agent; Z88.0 Allergy status to penicillin; Z82.49 Family history of ischemic heart disease and other diseases of the circulatory system; Z80.9 Family history of malignant neoplasm, unspecified
CPT/HCPCS: 85025; 88300

== ENCOUNTER → 2019-10-22 | Outpatient (CLI) | payer BC ==
--- NOTE | 2019-10-22 13:21 | MM ---
Reason for exam: screening (asymptomatic). Last mammogram was performed 1 year ago. History: Patient is postmenopausal. Family history of breast cancer in maternal aunt and breast cancer in maternal cousin. Benign excisional biopsy of the right breast, 1996. Physical Findings: A clinical breast exam by your physician is recommended on an annual basis and results should be correlated with mammographic findings. MG 3D Screening Mammo W/Cad Bilateral CC and MLO view(s) were taken. Prior study comparison: October 18, 2018, bilateral MG 3d diag mammo w/cad [facility]. March 18, 2017, bilateral MG 3d diag mammo w/cad [facility]. The breast tissue is heterogeneously dense. This may lower the sensitivity of mammography. There is an upper outer quadrant obscured 6mm mass 3-3.5cm from nipple on the right. No suspicious abnormality on the left. ASSESSMENT: Incomplete: need additional imaging evaluation, BI-RAD 0 RECOMMENDATION: Special view mammogram and ultrasound of the right breast. [facility] will attempt to contact patient to return for supplemental views and ultrasound.
== END | disposition home or self-care (01) ==
LOC: RADMAMWWP 08:25
PROVIDERS: ATTEND Surgery
DX: Z12.31 Encounter for screening mammogram for malignant neoplasm of breast (principal)
CPT/HCPCS: 77063; 77067

== ENCOUNTER → 2019-11-13 | Outpatient (CLI) | payer BC, MEDICAID ==
--- NOTE | 2019-11-14 08:05 | MM ---
Reason for exam: additional evaluation requested from abnormal screening. Last mammogram was performed 1 month ago. History: Patient is postmenopausal. Family history of breast cancer in maternal aunt and breast cancer in maternal cousin. Benign excisional biopsy of the right breast, 1996. Physical Findings: Nurse did not find any significant physical abnormalities on exam. MG 3D Work Up W/Cad RT CC and MLO view(s) were taken of the right breast. Prior study comparison: October 22, 2019, bilateral MG 3d screening mammo w/cad. October 18, 2018, bilateral MG 3d diag mammo w/cad [facility]. The breast tissue is heterogeneously dense. This may lower the sensitivity of mammography. The previously seen abnormality resolves on additional views and appears as fibroglandular tissue compatible with summation. These results were verbally communicated with the patient and result sheet given to the patient on 11/13/19. ASSESSMENT: Negative, BI-RAD 1 RECOMMENDATION: Return to routine screening mammogram schedule for both breasts.
== END | disposition home or self-care (01) ==
LOC: RADMAMWWP 14:56
PROVIDERS: ATTEND Surgery
DX: R92.8 Other abnormal and inconclusive findings on diagnostic imaging of breast (principal)
CPT/HCPCS: 77061; 77065

== ENCOUNTER → 2020-10-15 | Outpatient (CLI) | payer MEDICAID | END | disposition home or self-care (01) | LOC: LABPAT 14:14 | PROVIDERS: ATTEND Orthopaedic Surgery | DX: Z01.812 Encounter for preprocedural laboratory examination (principal) | CPT/HCPCS: 87070 ==

== ENCOUNTER 2020-11-11 06:28 | Day surgery (SDC) | payer MEDICAID ==
[2020-11-04 14:19] VITALS: BMI 35.2
--- NOTE | 2020-11-10 08:52 | HP ---
HISTORY AND PHYSICAL CHIEF COMPLAINT: Left knee pain. 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 It has worsened recently. She has tried previous medications in addition to injections with only partial temporary relief. She also had a previous left knee arthroscopy. PAST MEDICAL HISTORY: Significant for hypothyroidism, anemia, and arthritis. PAST SURGICAL HISTORY: Significant for knee arthroscopy and breast surgery. CURRENT MEDICATIONS: Levothyroxine and meloxicam. FAMILY HISTORY: Significant for cancer, heart disease. SOCIAL HISTORY: Otherwise negative. ALLERGIES: She has allergies to AMOXICILLIN and TRAMADOL. 16 POINT REVIEW OF SYSTEMS: Otherwise is reviewed and is noncontributory. PHYSICAL EXAMINATION: On examination, patient is approximately 5 foot tall, 180 pounds of endomorphic habitus. HEENT exam is nonfocal. Neck is supple. She has painless passive motion of her left hip. Straight leg raise is negative. Active motion left knee -12 to 90 degrees of flexion. She is tender about the medial joint line. She has a large effusion. Collaterals are stable, Alex is negative, Ray's is equivocal. She has genu varum alignment. Her distal neurovascular exam appears intact in the left lower extremity. Weightbearing notch, lateral and Merchant views of the left knee obtained in the office show severe medial compartment osteoarthrosis. IMPRESSION: 1. Left knee severe medial compartment osteoarthrosis. 2. Increased body mass index. 3. History of anemia. RECOMMENDATIONS: I talked to the patient at length regarding her condition and treatment options. At this point, she remains quite symptomatic despite extensive previous conservative measures. After thorough discussion, she opts to proceed with surgery. We will plan to proceed with left total knee arthroplasty. Risks and benefits were discussed at length in layman's terms. We will institute DVT prophylaxis postoperatively. MMODL / IJN: [id number] /
[~2020-11-11 06:28] MED LIST changes: +ACETAMINOPHEN TAB 500 MG TAB PO PRN; +DEXAMETHASONE SOD PHOSPHATE 4 MG/ML 1 ML VIAL IV ONE; -LIDOCAINE 1% 20 ML VIAL (10MG/ML) FOR IV START INTRADERMA PRN; +MELOXICAM 7.5 MG TAB PO PRN; -MIDAZOLAM (PF) 2 MG/2 ML VIAL IV PRN; +MIDAZOLAM 2 MG/2 ML VIAL IV PRN; +ONDANSETRON 4 MG/2 ML VIAL IVP ONE; +ROPIVACAINE 246.25 MG, EPINEPHrine 0.5 MG, KETOROLAC 30 MG, cloNIDine HCL/PF 80 MCG, WA... MISCELLANE PRN; -SCOPOLAMINE 1.5MG/72HR PATCH TRANSDERM ONE; +TRANEXAMIC ACID 1,000 MG in SODIUM CHLORIDE 0.9% 100 ML IVPB PRN; -TRANEXAMIC ACID 1,000 MG in SODIUM CHLORIDE 0.9% 50 ML IVPB ONE; -ceFAZolin IN SWFI 2 GM/20 ML SYRINGE IVP ONE
[2020-11-11] MEDS: LACTATED RINGERS 1,000 ML IV SCH ×2 (07:01→23:49)
[2020-11-11] MEDS ORDERED: MIDAZOLAM 2 MG/2 ML VIAL IV ONE (07:58)
[2020-11-11] MEDS ORDERED: SODIUM CHLORIDE 0.9% 100 ML BAG ONE (08:05)
[2020-11-11] MEDS ORDERED: PROPOFOL 10 MG/ML 20 ML VIAL IV ONE (08:05)
[2020-11-11] MEDS ORDERED: fentaNYL (PF) 50 MCG/ML 2 ML AMP ONE (08:05)
[2020-11-11] MEDS ORDERED: MIDAZOLAM 2 MG/2 ML VIAL ONE (08:05)
[2020-11-11] MEDS ORDERED: TRANEXAMIC ACID 1,000 MG/10 ML VIAL ONE (08:05)
[2020-11-11] MEDS ORDERED: ceFAZolin 3,000 MG in SODIUM CHLORIDE 0.9% IRRIGATIO 3,000 ML IRRIGATION ONE (08:36)
[2020-11-11] MEDS ORDERED: NALOXONE 0.4 MG/ML 1 ML VIAL IV PRN (09:43)
[2020-11-11] MEDS ORDERED: HYDROmorphone 0.5 MG/0.5 ML SYRINGE IVP PRN (09:43)
[2020-11-11] MEDS ORDERED: MAGNESIUM HYDROXIDE 2,400 MG/10 ML CUP PO PRN (09:43)
[2020-11-11] MEDS ORDERED: HYDROcodone/APAP 7.5-325MG 1 EACH TAB PO PRN (09:43)
[2020-11-11] MEDS ORDERED: HYDROmorphone 1 MG/ML 1 ML SYRINGE IVP PRN (09:43)
[2020-11-11] MEDS ORDERED: ONDANSETRON 4 MG/2 ML VIAL IVP PRN (09:43)
[2020-11-11] MEDS ORDERED: ACETAMINOPHEN TAB 325 MG TAB PO PRN (09:43)
[2020-11-11] MEDS ORDERED: ROPIVACAINE 0.2%-NS ON-Q PUMP 1,090 MG, EMPTY PAIN BALL 1 EACH MISCELLANE PRN (09:53)
--- NOTE | 2020-11-11 09:56 | P.ANPRN ---
Procedure Note - Anesthesia - Nerve Block Performed Left Adductor Canal Infusion Time Out Performed: Yes Date of Procedure: 11/11/20 Procedure Start Time: 07:58 Procedure Stop Time: 08:07 Location of Patient: PreOp Indication: Acute Post-Operative Pain, Requested by Surgeon Sedation Type: Sedate with meaningful contact maintained Preparation: Sterile Prep, Sterile Dressing Position: Supine Catheter: Indwelling Needle Types: Pajunk Needle Gauge: 21 Ultrasound used to visualize needle placement: Yes Ultrasound used to observe medication spread: Yes Blood Aspirated: No Pain Paresthesia on Injection Noted: No Resistance on Injection: Normal Image Stored and Saved: Yes Events: Uneventful and Well Tolerated (ropi .5% 20 cc plus dexamethasone 4mg)
[2020-11-11] MEDS ORDERED: LACTATED RINGERS 1,000 ML IV ONE (10:03)
--- NOTE | 2020-11-11 10:21 | P.OP ---
Date of Procedure: 11/11/20 Preoperative Diagnosis: Left knee severe tricompartmental osteoarthrosis Postoperative Diagnosis: Same Procedure(s) Performed: Left total knee arthroplastycementedcruciate retaining Implants: Depuy Attune size 4 narrow cemented femoral component, size 3 cemented tibial component, 9 mm articular surface, 32 mm cemented patellar component. Anesthesia: regional, local, spinal Surgeon: Brandt Adame Patrol Mother #1: Juan Oakes Estimated Blood Loss (ml): 50 Pathology: other (Bone fragments) Condition: stable Disposition: PACU Indications for Procedure: The patient's a 60-year-old female who presents with progressive left knee pain secondary to osteoarthrosis despite conservative measures. A discussion of the risks and benefits of operative intervention versus continued conservative measures was made with patient. She opted to proceed with surgery. Operative risks to include infection, neurovascular injury, development of blood clots, fracture, possible component loosening, possible component failure need for s ubsequent procedures was discussed. Informed consent was obtained. Operative Findings: As below Description of Procedure: The patient was brought to the operating room, and after induction of spinal anesthesia the left lower extremity was prepped and draped in a normal fashion. The tourniquet was inflated to 270 mmHg. A longitudinal incision extending 3 finger breaths above the superior pole of the patella extending to the medial aspect the tibial tubercle was then made. The skin and subcutaneous tissues were divided sharply. Electrocautery was used for hemostasis. A medial parapatellar arthrotomy was then performed. The medial soft tissues to include the superficial and deep portions of the medial collateral ligament as well as the medial hamstring tendons were elevated subperiosteally. The proximal medial tibia osteophytes were carefully removed. The patella was everted. The knee was flexed. A portion of the retropatellar fat pad was excised sharply. The anterior cruciate ligament was sacrificed. A starting hole was made in the distal femur 1 cm anterior to the posterior cruciate origin. An intramedullary femoral guide was gently inserted planning on 5 valgus distal cut with 9 mm distal resection. The cutting block was pinned in place. The distal cut was then made. The posterior referencing sizing guide was utilized. 3 of external rotation was built into the system and verified off the trans- epicondylar axis and the posterior condyles. I felt size 4 narrow was most appropriate. The cutting block was pinned in place. The anterior, posterior, and chamfer cuts were then made. The bone fragments were removed. A sulcus cut was then made with the appropriate guide. The trial size 4 narrow femoral component was then placed and was fully seated. There was good anterior to posterior and medial to lateral fit. The distal peg holes were then drilled. The trial component was then removed. Attention was then paid towards preparing the proximal tibia. An extra medullary guide was utilized in line with the tibial shaft and second metatarsal distally. A 7 posterior slope was planned. I planned on 2 mm resection from the medial compartment. The cutting block was pinned in place. The proximal tibial cut was then made. The bone was removed in one fragment. The remnants of the medial and lateral menisci were excised the capsule junction with electrocautery. The tibia sized most appropriately at size 3. The posterior osteophytes off the distal femur were carefully removed with a curved osteotome. The trial tibial and femoral components were placed along with a 9 millimeters articular surface. I was able to obtain full flexion and extension with good stability with varus and valgus stress. After several flexion and extension cycles, the tibial rotation was marked with electrocautery in line with the medial one third of the tibial tubercle. Attention was then pa id towards preparing the patella. A patella reamer was utilized taking this down to 14 mm of bone stock. A good flush cut was made. The patella sized most appropriately at 32 millimeters. The peg holes were then drilled. The trial component was placed. The knee was taken through a range of motion. I had good patellofemoral tracking with no hands technique. The trial components were then removed. The tibia was prepared in the appropriate rotation with appropriate drill and keel punch. The flexion and extension gaps were checked and felt to be symmetric. The posterior soft tissues were injected with ropivacaine. The bony surfaces were prepared with pulsatile lavage and dried. The deep tibial component was then cemented in place and was fully seated. Excess cement was removed. The femoral component was cemented in place and was fully seated. Again excess cement was removed. The trial 9 millimeters surface was then inserted in the knee was put in full extension. The patella component was cemented in place. After the cement had sufficiently hardened, the knee was again taken through a range of motion. Again there was good stability in flexion and extension with varus and valgus stress. The trial articular surface was then removed. The final articular surface was placed and was impacted. Care was taken to avoid any soft tissue interposition. Pulsatile lavage was again utilized. The tourniquet was deflated with approximately 60 minutes total tourniquet time. There was minimal drainage therefore a deep drain was not placed. The medial parapatellar arthrotomy was then closed with #2 Ethibond suture. The subcutaneous tissues were reapproximated interrupted 2-0 Vicryl sutures. The skin was reapproximated with 3-0 subarticular strata fix suture. Skin tape and adhesive was applied. A sterile dressing was applied. The patient was then awoken from sedation and transferred to recovery room in good condition. Blood loss was estimated at 50 milliliters. No complications were incurred. Sponge and needle counts were correct at the end the case. Robb ROMERO assisted during the major components this case to include exposure, bone resection, and implantation.
--- NOTE | 2020-11-11 10:56 | XR ---
EXAMINATION TYPE: XR knee limited LT DATE OF EXAM: 11/11/2020 COMPARISON: 06/08/2016 HISTORY: Postop left knee TECHNIQUE: 2 view left knee FINDINGS: Tibial and femoral components of in place. No acute fractures are evident. Postsurgical sof t tissue changes are present. IMPRESSION: 1. No acute fractures post knee replacement
[2020-11-11] MEDS: HYDROmorphone 0.5 MG/0.5 ML SYRINGE IVP PRN ×2 (11:33→11:41)
[2020-11-11] MEDS: HYDROcodone/APAP 5-325MG 1 EACH TAB PO PRN (18:10)
--- NOTE | 2020-11-11 20:39 | P.CONS ---
History of Present Illness - Reason for Consult Consult date: 11/11/20 Medical management Requesting physician: Brandt Adame - Chief Complaint Left knee surgery - History of Present Illness History of presenting complaint: This is a 60-year-old patient TO Tahmina samson progressive arthritic symptoms in the left knee. Going on for quite some time. Patient has tried conservative measures with no help. Pain is pretty much localized to the left knee. Was with activity and better with rest. Has undergone left total knee arthroplasty today. No nausea vomiting. Review of systems: GEN.: None EYES: None HEENT: None NECK: None RESPIRATORY: None CARDIOVASCULAR: None GASTROINTESTINAL: None GENITOURINARY: None MUSCULOSKELETAL: Joint pains LYMPHATICS: None HEMATOLOGICAL: None PSYCHIATRY: None NEUROLOGICAL: None Past medical history to include: Fibromyalgia, GERD, osteoarthritis, hypothyroid, Shyla's disease, chronic pain syndrome Social history: Does not smoke. Alcohol occasionally. Marijuana edibles. 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 Physical examination: VITAL SIGNS: 97.5, 71, 20, 1 26 x 72, 96% room air GENERAL: BMI 35.4, sitting up, not in distress. EYES: Pupils equal. Conjunctiva normal. HEENT: External appearance of nose and ears normal, oral cavity grossly normal. NECK: JVD not raised; masses not palpable. HEART: First and second heart sounds are normal; no edema. LUNGS: Respiratory rate normal; clear to auscultation. MUSCULAR skeletal: Dressing over the left knee. Evidence of OA ABDOMEN: Soft, nontender, liver spleen not palpable, no masses palpable. PSYCH: Alert and oriented x3; mood and affect normal. NEUROLOGICAL: Cranial nerves grossly intact; no facial asymmetry, power and sensation grossly intact. LYMPHATICS: No lymph nodes palpable in the axilla and neck Assessment: -Left total knee arthroplasty -Primary osteoarthritis -Chronic fibromyalgia -GERD -Hypothyroid - Plan: Home medications resumed. Patient received IV Ancef for antibiotic prophylaxis. Getting xarelto for DVT prophylaxis. Care was discussed with the patient and questions answered. Follow-up with PCP upon discharge. Thank you Dr. Arredondo Past Medical History Past Medical History: Fibromyalgia, GERD/Reflux, Osteoarthritis (OA), Thyroid Disorder Additional Past Medical History / Comment(s): Hypoglycemia, occ migraines, Shyla's, hx palipitations, chronic pain syndrome, hx anemia, History of Any Multi-Drug Resistant Organisms: None Reported Past Surgical History: Breast Surgery, Joint Replacement, Tubal Ligation Additional Past Surgical History / Comment(s): total rt knee, rt Breast biopsy; D&C; left knee meniscus surgery, total left knee (11/11/20). Past Anesthesia/Blood Transfusion Reactions: Previous Problems w/ Anesthesia Additional Past Anesthesia/Blood Transfusion Reaction / Comm: takes longer to wake up Past Psychological History: No Psychological Hx Reported Smoking Status: Never smoker Past Alcohol Use History: Occasional Past Drug Use History: Marijuana Additional Drug Use History / Comment(s): medical card, edibles - Past Family History Mother Family Medical History: Deep Vein Thrombosis (DVT), Pulmonary Embolus Father Family Medical History: Cancer Medications and Allergies Home Medications Medication Instructions Recorded Confirmed Type Levothyroxine Sodium [Synthroid] 88 mcg PO QAM 07/03/15 11/11/20 History Meloxicam [Mobic] 15 mg PO HS 07/28/16 11/11/20 History Loratadine-Pseudoeph 10-240 mg 1 tab PO Q48H 11/16/18 11/11/20 History [Claritin-D 24 Hr] Allergies Allergy/AdvReac Type Severity Reaction Status Date / Time amoxicillin AdvReac Rash/Hives Verified 11/11/20 06:44 tramadol AdvReac Confusion Verified 11/11/20 06:44 Physical Exam Vitals: Vital Signs Temp Pulse Resp BP BP Pulse Ox 11/11/20 19:55 71 20 11/11/20 19:37 97.5 F L 71 20 126/72 96 11/11/20 14:43 97.8 F 61 18 120/68 98 11/11/20 12:43 97.8 F 74 18 131/74 97 11/11/20 11:55 87 18 139/71 95 11/11/20 11:40 79 18 129/74 97 11/11/20 11:10 74 18 135/74 97 11/11/20 10:55 81 18 131/51 96 11/11/20 10:40 61 16 110/58 96 11/11/20 10:24 67 16 119/59 100 11/11/20 10:09 97.8 F 71 12 117/63 98 11/11/20 08:08 72 16 139/71 99 11/11/20 06:50 98.1 F 78 16 170/84 99 Intake and Output 11/11/20 11/11/20 11/11/20 06:59 14:59 22:59 Intake Total 1401 Output Total 50 Balance 1351 Intake: IV 1401 Output: Estimated Blood Loss 50 Other: # Voids 1 Weight 82.2 kg 82.2 kg
[2020-11-11] MEDS ORDERED: SENNOSIDES-DOCUSATE SODIUM 1 EACH TAB PO SCH (21:00)
[2020-11-12] MEDS ORDERED: LEVOTHYROXINE 88 MCG TAB PO SCH (06:30)
[2020-11-12 06:38] LABS: Basophils % (A) 0 %; Eosinophils % (A) 0 %; HCT 32.6 % (34.0-46.0); HGB 10.8 gm/dL (11.4-16.0); Lymphocytes % (A) 10 %; MCH 31.4 pg (25.0-35.0); MCHC 33.1 g/dL (31.0-37.0); MCV 94.7 fL (80.0-100.0); Mean Platelet Volume 8.2; Monocytes # (A) 0.7 k/uL (0-1.0); Monocytes % (A) 7 %; Neutrophils # (A) 7.9 k/uL (1.3-7.7); Neutrophils % (A) 82 %; Platelet Count 170 k/uL (150-450); RBC 3.45 m/uL (3.80-5.40); RDW 12.5 % (11.5-15.5); WBC 9.7 k/uL (3.8-10.6)
[2020-11-12 07:31] VITALS: BP 127/73; PULSE 72; RESP 17; TEMP 98.4
[2020-11-12] MEDS: HYDROcodone/APAP 5-325MG 1 EACH TAB PO PRN (08:07)
--- NOTE | 2020-11-12 08:27 | P.PN ---
Progress Note - Text Progress Note Date: 11/12/20 (531) Anesthesiology Postop day 1 status post total knee arthroplasty with adductor canal catheter. Patient doing well. VAS 4-5 out of 10. Gross strength intact in lower extremity. Afebrile. Denies alterations in sensorium. Catheter site intact. Heart regular rate Lungs nonlabored Abdomen nondistended Assessment: Postop day 1 status post total knee arthroplasty with adductor canal catheter Plan: All questions answered. Maintain catheter 2 more days with patient removal at home. Instructions were given at discharge.
[2020-11-12] MEDS ORDERED: RIVAROXABAN 10 MG TAB PO SCH (09:00)
--- NOTE | 2020-11-12 10:40 | P.PN ---
Subjective Progress Note Date: 11/12/20 Principal diagnosis: Status post left total knee arthroplasty Patient is evaluated at bedside today, she is resting comfortably. She did very well with physical therapy. She is having some pain in the posterior aspect the leg along the lateral border. She currently denies any headaches, lightheadedness, chest pain, shortness of breath, nausea vomiting, fever or chills. Objective - Vital Signs Vital signs: Vital Signs Temp 98.4 F 11/12/20 06:44 Pulse 72 11/12/20 06:44 Resp 17 11/12/20 06:44 BP 127/73 11/12/20 06:44 Pulse Ox 97 11/12/20 06:44 Intake & Output 11/11/20 11/12/20 11/12/20 18:59 06:59 18:59 Intake Total 1401 200 Output Total 50 Balance 1351 200 Weight 82.2 kg Intake: IV 1401 Oral 200 Output: Estimated Blood Loss 50 Other: # Voids 2 1 - Exam Left lower extremity: Incision is clean, dry, and intact. The exofin fusion tape is in good condition. There is minimal soft tissue swelling and ecchymosis surrounding the medial and lateral aspects of the incision. Calf is soft, no tenderness with palpation. Plantar flexion, dorsiflexion, EHL, FHL are intact. Sensory exam to light touch throughout the extremity is intact, dorsal pedis pulses 2+. - Labs CBC & Chem 7: 11/12/20 06:27 Labs: Abnormal Lab Results - Last 24 Hours (Table) 11/12/20 Range/Units 06:27 RBC 3.45 L (3.80-5.40) m/uL Hgb 10.8 L (11.4-16.0) gm/dL Hct 32.6 L (34.0-46.0) % Neutrophils # 7.9 H (1.3-7.7) k/uL Assessment and Plan Assessment: Status post left total knee arthroplasty Plan: Pain control, plan for discharge home on oral medication DVT prophylaxis, Eliquis 2.5 mg twice a day for 2 weeks Wound care instructions were discussed Icing and elevating to discussed Medical recommendations Planning for discharge home today Time with Patient: Less than 30
--- NOTE | 2020-11-12 10:43 | P.DS ---
Providers Date of admission: 11/11/2020 Expected date of discharge: 11/12/20 Attending physician: Brandt Adame Consults: 11/11/20 09:43 Consult Physician Routine Consulting Provider: Sunny Anderson Reason/Comments: medical management Do you want consulting provider notified?: Yes Primary care physician: Sunny Anderson [facility] Course: Date of admission: 11/11/2020 Date of discharge: 11/12/2020 Admission diagnosis: Status post left total knee arthroplasty Discharge diagnosis: Same Attending physician: Dr. Adame Surgical procedures: Left total knee arthroplasty Brief history: Patient is a 60-year-old female with a history of progressive primary left knee osteoarthritis. At this point patient has failed conservative treatment measures and has opted to proceed with a elective left total knee arthroplasty. Hospital course: Details of patient's surgery can be found in operative report. Patient tolerated the procedure well and was subsequently transported to orthopedic floor. Patient's orthopeidc and medical care was provided daily. Patient had daily laboratory tests performed for evaluation of overall blood counts. Patient had daily physical therapy to include strengthening range of motion as well as education with walker ambulation. Patient was treated with Xarelto for their postoperative DVT prophylaxis during their inpatient stay. Patient was noted to have a relatively uneventful postoperative course. Patient reported satisfactory pain control with oral pain medications by postoperative day 0. Patient showed satisfactory progress with physical therapy. Patient moved steadily through the program and had no difficulty meeting the goals by postoperative day 1. Given patient's otherwise satisfactory course and having met physical therapy goals, plan is to discharge patient home on postoperative day 1. Discharge condition/disposition: Patient will be discharged home in stable condition. Discharge medications: Instructions are given on resumption of patient's normal daily medications per primary care recommendation, in addition patient will be prescribed [place] 7.5 mg/325 mg, Colace 100 mg, Eliquis 2.5 mg. Discharge instructions: 1. Wound care and infection precautions, keep incision dry and covered while showering, no lotions, creams, moisturizers. No soaking, tubs, pools, hottubs. Do not scrub over the incision. 2. Weight-bear as tolerated with walker / cane until follow-up. 3. Ice and elevate when necessary. Do not exceed 20 minutes per hour with ice pack. 4. Utilize compression sleeve until seen at first follow up appointment. 5. Visiting nursing care. 6. Home physical therapy including home CPM. 7. Pain meds and anticoagulants per prescription. 8. Pain medication has potential to cause constipation. Increase oral fluid and fiber intake. Contact primary care provider if you have not had a bowel movement within 48 hours after discharge 9. No anti-inflammatory medication until discussed at first post operative visit, this including Motrin, Aleve, Mobic, Diclofenac 10. Follow up in office at 2 weeks postop with Robb Oakes PA-C 11. Follow up with your primary care doctor 7-10 days after discharge. 12. Contact [facility] with any questions, . Procedures: Left total knee arthroplasty Patient Condition at Discharge: Good Plan - Discharge Summary Discharge Rx Participant: Yes New Discharge Prescriptions: New Docusate [Colace] 100 mg PO DAILY #30 capsule Apixaban [Eliquis] 2.5 mg PO BID #60 tab HYDROcodone/APAP 7.5-325MG [[place] 7.5] 1 - 2 each PO Q6HR PRN #42 tab PRN Reason: Pain No Action Levothyroxine Sodium [Synthroid] 88 mcg PO QAM Meloxicam [Mobic] 15 mg PO HS Loratadine-Pseudoeph 10-240 mg [Claritin-D 24 Hr] 1 tab PO Q48H Discharge Medication List Levothyroxine Sodium [Synthroid] 88 mcg PO QAM 07/03/15 [History] Meloxicam [Mobic] 15 mg PO HS 07/28/16 [History] Loratadine-Pseudoeph 10-240 mg [Claritin-D 24 Hr] 1 tab PO Q48H 11/16/18 [History] Apixaban [Eliquis] 2.5 mg PO BID #60 tab 11/12/20 [Rx] Docusate [Colace] 100 mg PO DAILY #30 capsule 11/12/20 [Rx] HYDROcodone/APAP 7.5-325MG [[place] 7.5] 1 - 2 each PO Q6HR PRN #42 tab 11/12/20 [Rx] Follow up Appointment(s)/Referral(s): Sunny Anderson DO [Primary Care Provider] - 11/18/20 8:45 am Juan Oakes PAC [PHYSICIAN PUTAWAY DRIVER] - 01/20/21 2:50 pm Activity/Diet/Wound Care/Special Instructions: Orthopedic Discharge Instructions: 1. Wound care and infection precautions, keep incision dry and covered while showering, no lotions, creams, moisturizers. No soaking, pools, hot tubs. Do not scrub over incision. 2. Weight-bear as tolerated with walker / cane until follow-up. 3. Ice and elevate when necessary. Do not exceed 20 minutes per hour with ice pack. 4. Utilize compression sleeve until seen at first follow up appointment. 5. Pain meds and anticoagulants per prescription. 6. Pain medication has potential to cause constipation. Increase oral fluid and fiber intake. Contact primary care provider if you have not had a bowel movement within 48 hours after discharge. 7. No anti-inflammatory medication until discussed at first post operative visit, this including Motrin, Aleve, Mobic, Diclofenac. 8. Follow up in office at 2 weeks postop with Robb Oakes PA-C 9. Follow up with your primary care doctor 7-10 days after discharge. 10. Contact [facility] with any questions, . Discharge Disposition: HOME WITH HOME HEALTH SERVICES
--- NOTE | 2020-11-13 17:30 | P.PN ---
Progress Note - Text Progress Note Date: 11/12/20 - Chief Complaint Left knee surgery Interval history: This is a 60-year-old patient TO Tahmina samson progressive arthritic symptoms in the left knee. Going on for quite some time. Patient has tried conservative measures with no help. Pain is pretty much localized to the left knee. Was with activity and better with rest. Has undergone left total knee arthroplasty Today-feeling better. Pain control. No nausea vomiting. Did tolerate her breakfast. Did work with therapy. Review of systems: Was done for constitutional, cardiovascular, GI, pulmonary. relevant finding as above Current medications reviewed in today's electronic records Physical examination: VITAL SIGNS: 98.4, 72, 17, 127/73, 97% room air GENERAL: BMI 35.4, sitting up in a chair, comfortable. EYES: Pupils equal. Conjunctiva normal. NECK: JVD not raised; masses not palpable. HEART: First and second heart sounds are normal; no edema. LUNGS: Respiratory rate normal; clear to auscultation. MUSCULAR skeletal: Dressing over the left knee. Evidence of OA ABDOMEN: Soft, nontender, liver spleen not palpable, no masses palpable. PSYCH: Alert and oriented x3; mood and affect normal. Investigations: White count 9.7 hemoglobin 10.8 platelets 170 Assessment: -Left total knee arthroplasty -Primary osteoarthritis -Chronic fibromyalgia -GERD -Hypothyroid -Possible acute postprocedure blood loss anemia as expected from surgery Plan: Continue current medication treatment plan. If discharge follow-up with the PCP. Care was discussed with the patient. Thank you Dr. Arredondo
== END 2020-11-12 14:40 | disposition home health service (06) ==
LOC: OR 06:28 → 4SSUR 11:31 → OR 11-12 14:40
PROVIDERS: ATTEND Orthopaedic Surgery
DX: M17.12 Unilateral primary osteoarthritis, left knee (principal); E03.9 Hypothyroidism, unspecified; K21.9 Gastro-esophageal reflux disease without esophagitis; M79.7 Fibromyalgia; D64.9 Anemia, unspecified; G89.4 Chronic pain syndrome; E06.3 Autoimmune thyroiditis; E55.9 Vitamin D deficiency, unspecified; E78.5 Hyperlipidemia, unspecified; Z82.49 Family history of ischemic heart disease and other diseases of the circulatory system; Z80.9 Family history of malignant neoplasm, unspecified; Z88.0 Allergy status to penicillin; Z88.5 Allergy status to narcotic agent; Z98.51 Tubal ligation status; Z96.651 Presence of right artificial knee joint; Z88.6 Allergy status to analgesic agent; Z88.8 Allergy status to other drugs, medicaments and biological substances; Z79.1 Long term (current) use of non-steroidal anti-inflammatories (NSAID); Z79.890 Hormone replacement therapy; Z79.899 Other long term (current) drug therapy; Z98.890 Other specified postprocedural states
CPT/HCPCS: 97162; 64448; 76942; 85025; 88300; 73560; 27447; C1713; C1776; J2250; J0171; J1100; J0690 ×2; J2405; J3010; J1885; J2795 ×2; J2704; J0735; J1170 ×2

== ENCOUNTER 2021-03-08 12:52 | Emergency (ER) | payer MEDICAID ==
[2021-03-08 13:05] VITALS: RESP 18
[2021-03-08] MEDS ORDERED: predniSONE 20 MG TAB PO STA (13:51)
[2021-03-08] MEDS ORDERED: valACYclovir HCL 1,000 MG TABLET PO STA (13:52)
[2021-03-08 14:16] LABS: Basophils % (A) 0 %; Eosinophils # (A) 0.1 k/uL (0-0.7); Eosinophils % (A) 1 %; HCT 39.7 % (34.0-46.0); HGB 13.1 gm/dL (11.4-16.0); Lymphocytes # (A) 1.5 k/uL (1.0-4.8); Lymphocytes % (A) 27 %; MCH 30.6 pg (25.0-35.0); MCV 92.6 fL (80.0-100.0); Mean Platelet Volume 6.7; Monocytes # (A) 0.4 k/uL (0-1.0); Monocytes % (A) 7 %; Neutrophils # (A) 3.5 k/uL (1.3-7.7); Neutrophils % (A) 63 %; Platelet Count 233 k/uL (150-450); RBC 4.29 m/uL (3.80-5.40); RDW 12.5 % (11.5-15.5); WBC 5.7 k/uL (3.8-10.6)
--- NOTE | 2021-03-08 14:23 | XR ---
Chest x-ray 2 views. History weakness. Comparison 02/18/2017. FINDINGS: Heart and mediastinum are normal. Lungs are clear. Diaphragm is normal. Bony thorax appears normal. P ulmonary vascularity is normal. IMPRESSION: Normal chest. No change.
--- NOTE | 2021-03-08 14:26 | ED ---
Neuro HPI - General Chief Complaint: Neuro Symptoms/Deficit Stated Complaint: Facial Numbing Time Seen by Provider: 03/08/21 13:00 Source: patient Mode of arrival: ambulatory Limitations: no limitations - History of Present Illness Is the patient presenting with stroke symptoms?: No Initial Comments: Patient is a 60-year-old female with past medical history of febrile neuralgia, thyroid disorder who presents emergency Department with reported right-sided facial tingling. Patient had the Covid vaccine on Tuesday. States that she woke up on with the symptoms on the right. Reports that it initially started with tongue tingling and then progressed to right-sided facial tingling. 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 States that she has constant blinking in her right eye. Denies any numbness, tingling or weakness in her upper or lower extremities. No speech difficulties. Does state it is difficult to drink as she finds herself drooling. No headaches. Does admit to blurred vision. No history of stroke. No chest pain or shortness of breath. No other alleviating, precipitating or modifying factors - Related Data Home Medications: Home Medications Medication Instructions Recorded Confirmed Levothyroxine Sodium [Synthroid] 88 mcg PO DAILY 07/03/15 03/08/21 Loratadine-Pseudoeph 10-240 mg 1 tab PO Q48H 11/16/18 03/08/21 [Claritin-D 24 Hour] Meloxicam [Mobic] 15 mg PO HS 03/08/21 03/08/21 Multivitamins, Thera [Multivitamin 1 tab PO Q48H 03/08/21 03/08/21 (formulary)] Vitamin C(Unknown Dose) 1 tab PO Q48H 03/08/21 03/08/21 Vitamin D3(Unknown Dose) 1 tab PO Q48H 03/08/21 03/08/21 Previous Rx's Medication Instructions Recorded Artificial Tears Ointment 1 gm OPHTHALMIC TID #30 gm 03/08/21 [Lubrifresh Pm Ointment] predniSONE [Deltasone] 60 mg PO DAILY #15 tab 03/08/21 valACYclovir HCL [Valtrex] 1,000 mg PO Q8HR #21 tab 03/08/21 Allergies/Adverse Reactions: Allergies Allergy/AdvReac Type Severity Reaction Status Date / Time amoxicillin AdvReac Rash/Hives Verified 03/08/21 14:18 tramadol AdvReac Confusion Verified 03/08/21 14:18 Review of Systems ROS Statement: Those systems with pertinent positive or pertinent negative responses have been documented in the HPI. ROS Other: All systems not noted in ROS Statement are negative. General Exam Limitations: no limitations General appearance: alert, in no apparent distress Head exam: Present: atraumatic, normocephalic, other (left sided complete facial droop - inability to wrinkle forehead. Lt ptosis. Inability to close left eye with mild left eye conjunctival injection) Eye exam: Present: PERRL, EOMI, conjunctival injection (left). Absent: scleral icterus, periorbital swelling ENT exam: Present: mucous membranes moist Neck exam: Present: normal inspection. Absent: tenderness, meningismus, lymphadenopathy Respiratory exam: Present: normal lung sounds bilaterally. Absent: respiratory distress, wheezes, rales, rhonchi, stridor Cardiovascular Exam: Present: regular rate, normal rhythm, normal heart sounds. Absent: systolic murmur, diastolic murmur, rubs, gallop, clicks GI/Abdominal exam: Present: soft, normal bowel sounds. Absent: distended, tenderness, guarding, rebound, rigid Extremities exam: Present: normal inspection, full ROM, normal capillary refill. Absent: tenderness, pedal edema, joint swelling, calf tenderness Back exam: Present: normal inspection Neurological exam: Present: alert, oriented X3, CN II-XII intact Psychiatric exam: Present: normal affect, normal mood Skin exam: Present: warm, dry, intact, normal color. Absent: rash Stroke MDM - Lab Data Result diagrams: 03/08/21 13:57 03/08/21 13:57 Lab Results 03/08/21 03/08/21 03/08/21 Range/Units 13:57 13:57 13:57 WBC 5.7 (3.8-10.6) k/uL RBC 4.29 (3.80-5.40) m/uL Hgb 13.1 (11.4-16.0) gm/dL Hct 39.7 (34.0-46.0) % MCV 92.6 (80.0-100.0) fL MCH 30.6 (25.0-35.0) pg MCHC 33.0 (31.0-37.0) g/dL RDW 12.5 (11.5-15.5) % Plt Count 233 (150-450) k/uL MPV 6.7 Neutrophils % 63 % Lymphocytes % 27 % Monocytes % 7 % Eosinophils % 1 % Basophils % 0 % Neutrophils # 3.5 (1.3-7.7) k/uL Lymphocytes # 1.5 (1.0-4.8) k/uL Monocytes # 0.4 (0-1.0) k/uL Eosinophils # 0.1 (0-0.7) k/uL Basophils # 0.0 (0-0.2) k/uL PT 10.2 (9.0-12.0) sec INR 0.9 (<1.2) APTT 22.2 (22.0-30.0) sec Sodium 142 (137-145) mmol/L Potassium 4.6 (3.5-5.1) mmol/L Chloride 104 (98-107) mmol/L Carbon Dioxide 31 H (22-30) mmol/L Anion Gap 7 mmol/L BUN 14 (7-17) mg/dL Creatinine 0.62 (0.52-1.04) mg/dL Est GFR (CKD-EPI)AfAm >90 (>60 ml/min/1.73 sqM) Est GFR (CKD-EPI)NonAf >90 (>60 ml/min/1.73 sqM) Glucose 90 (74-99) mg/dL Calcium 9.9 (8.4-10.2) mg/dL Total Bilirubin 0.4 (0.2-1.3) mg/dL AST 29 (14-36) U/L ALT 24 (4-34) U/L Alkaline Phosphatase 65 (38-126) U/L Troponin I (0.000-0.034) ng/mL Total Protein 7.4 (6.3-8.2) g/dL Albumin 4.5 (3.5-5.0) g/dL 03/08/21 Range/Units 13:57 WBC (3.8-10.6) k/uL RBC (3.80-5.40) m/uL Hgb (11.4-16.0) gm/dL Hct (34.0-46.0) % MCV (80.0-100.0) fL MCH (25.0-35.0) pg MCHC (31.0-37.0) g/dL RDW (11.5-15.5) % Plt Count (150-450) k/uL MPV Neutrophils % % Lymphocytes % % Monocytes % % Eosinophils % % Basophils % % Neutrophils # (1.3-7.7) k/uL Lymphocytes # (1.0-4.8) k/uL Monocytes # (0-1.0) k/uL Eosinophils # (0-0.7) k/uL Basophils # (0-0.2) k/uL PT (9.0-12.0) sec INR (<1.2) APTT (22.0-30.0) sec Sodium (137-145) mmol/L Potassium (3.5-5.1) mmol/L Chloride (98-107) mmol/L Carbon Dioxide (22-30) mmol/L Anion Gap mmol/L BUN (7-17) mg/dL Creatinine (0.52-1.04) mg/dL Est GFR (CKD-EPI)AfAm (>60 ml/min/1.73 sqM) Est GFR (CKD-EPI)NonAf (>60 ml/min/1.73 sqM) Glucose (74-99) mg/dL Calcium (8.4-10.2) mg/dL Total Bilirubin (0.2-1.3) mg/dL AST (14-36) U/L ALT (4-34) U/L Alkaline Phosphatase (38-126) U/L Troponin I <0.012 (0.000-0.034) ng/mL Total Protein (6.3-8.2) g/dL Albumin (3.5-5.0) g/dL - Medical Decision Making Upon arrival patient is placed in room 17. A thorough history and physical exam was performed. Patient does have complete paralysis of the left side of her face including upper forehead and left lower face. Patient is unable to close her eye wrinkle her forehead. I do suspect Keenan's palsy however did recommend stroke workup which patient did agree to. Laboratory studies were conducted and the patient went over for CT of her head. Laboratory studies are reviewed. CT angiography demonstrates negative CT angiogram of the neck and brain. Plain CT demonstrates no acute findings. Chest x-ray also performed which demonstrates no acute findings. Results are discussed the patient. I did discuss diagnosis, differential treatment options. At this time the patient will be treated as a Keenan's palsy. Placed on prednisone and valacyclovir. Patient is given a prescription for an eye lubricant. Patient is to use it several times per day. She is also given paper tape and instructed to tape her eye closed at night. George brady is to follow-up with her primary care doctor in 2-4 days. Return to the emergency room for any new or worsening symptoms. Patient was discharged home in stable condition EKG demonstrates sinus rhythm with ventricular rate of 86. WV interval 140. QRS 84. QTC of 466. No acute ST segment elevations or depressions 03/08/21 14:43 Past Medical History Past Medical History: Fibromyalgia, GERD/Reflux, Skin Disorder, Thyroid Disorder Additional Past Medical History / Comment(s): Hypoglycemia, occ migraines, Shyla's, hx palipitations, chronic pain syndrome, hx anemia, History of Any Multi-Drug Resistant Organisms: None Reported Past Surgical History: Breast Surgery, Orthopedic Surgery, Tubal Ligation Additional Past Surgical History / Comment(s): left knee replacement Past Anesthesia/Blood Transfusion Reactions: No Reported Reaction Past Psychological History: No Psychological Hx Reported Smoking Status: Never smoker Past Alcohol Use History: None Reported Past Drug Use History: None Reported - Past Family History Mother Family Medical History: Deep Vein Thrombosis (DVT), Pulmonary Embolus Father Family Medical History: Cancer Course Vital Signs 03/08/21 03/08/21 13:02 15:42 Temperature 98.2 F 98.6 F Pulse Rate 99 79 Respiratory 18 18 Rate Blood Pressure 154/94 148/80 O2 Sat by Pulse 98 99 Oximetry Disposition Clinical Impression: Keenan's palsy Disposition: HOME SELF-CARE Condition: Stable Instructions (If sedation given, give patient instructions): Keenan Palsy (ED) Additional Instructions: Please use the eye ointment or a refreshing eye drop to the left eye multiple times throughout the day to keep it moist. Take the prednisone and valtrex as directed. Return to the ED for any new or worsening symptoms. Follow up with your PCP in 2-4 days for re-evaluation. Prescriptions: predniSONE [Deltasone] 60 mg PO DAILY #15 tab Artificial Tears Ointment [Lubrifresh Pm Ointment] 1 gm OPHTHALMIC TID #30 gm valACYclovir HCL [Valtrex] 1,000 mg PO Q8HR #21 tab Is patient prescribed a controlled substance at d/c from ED?: No Referrals: Sunny Anderson DO [Primary Care Provider] - 1-2 days Time of Disposition: 15:48
[2021-03-08 14:28] LABS: ALT 24 U/L (4-34); AST 29 U/L (14-36); African American GFR (CKD) >90 (>60 ml/min/1.73 sqM); Albumin 4.5 g/dL (3.5-5.0); Alkaline Phosphatase 65 U/L (38-126); Anion Gap 7 mmol/L; Blood Urea Nitrogen 14 mg/dL (7-17); Calcium 9.9 mg/dL (8.4-10.2); Carbon Dioxide 31 mmol/L (22-30); Chloride 104 mmol/L (98-107); Glucose 90 mg/dL (74-99); Non-African American GFR(CKD) >90 (>60 ml/min/1.73 sqM); Potassium 4.6 mmol/L (3.5-5.1); Sodium 142 mmol/L (137-145); Total Bilirubin 0.4 mg/dL (0.2-1.3); Total Protein 7.4 g/dL (6.3-8.2)
[2021-03-08 14:33] LABS: INR 0.9 (<1.2); Partial Thromboplastin Time 22.2 sec (22.0-30.0); Prothrombin Time 10.2 sec (9.0-12.0)
--- NOTE | 2021-03-08 14:51 | CT ---
EXAMINATION TYPE: CT brain wo con DATE OF EXAM: 03/08/2021 COMPARISON: 02/18/2017 HISTORY: right side facial numbness CT DLP: 993.2 mGycm Automated exposure control for dose reduction was used. Ventricles have normal size. There is no mass effect nor midline shift. There is no sign of intracran ial hemorrhage. The calvarium is intact. Skull base is intact. IMPRESSION: Negative unenhanced head CT scan. No change.
--- NOTE | 2021-03-08 15:17 | CT ---
EXAMINATION TYPE: CT angio head neck DATE OF EXAM: 03/08/2021 COMPARISON: 02/18/2017 HISTORY: right side facial numbness CT DLP: 433.9 mGycm Automated exposure control for dose reduction was used. CONTRAST: Performed with IV Contrast, patient injected with 65 mL of Isovue 370. Images obtained from the aortic arch to the vertex of the brain with IV contrast. There are 3-D post processed images. There is normal branching pattern of the great vessels on the aortic arch. There is bilateral arteria l flow in the subclavian arteries. There is arterial flow in the common internal and external carotid arteries bilaterally. There is arterial flow in both vertebral arteries. There is no evidence of carotid or vertebral artery aneurysm or dissection. There is wide patency of the carotid artery bifurcations. There is arterial flow in the anterior middle and posterior cerebral arteries bilaterally. There is a rterial flow in the vertebrobasilar artery system. I see no evidence of intracranial arterial stenosis. There is no mass effect. There is no evidence of aneurysm or neovascularity. IMPRESSION: Negative CT angiogram of the neck. Negative CT angiogram of the brain.
[2021-03-08 15:43] VITALS: BP 148/80; PULSE 79; TEMP 98.6
== END 2021-03-08 15:50 | disposition home or self-care (01) ==
LOC: EC 12:52
DX: G51.0 Bell's palsy (principal); E07.9 Disorder of thyroid, unspecified; K21.9 Gastro-esophageal reflux disease without esophagitis
CPT/HCPCS: 36415; 93005; 80053; 84484; 85025; 85610; 85730; 71046; 70496; 70450; 70498; 99284; J7512; Q9967

== ENCOUNTER 2022-03-18 10:01 | Day surgery (SDC) | payer MEDICAID ==
[2022-03-16 15:06] VITALS: BMI 35.9
[~2022-03-18 10:01] MED LIST changes: -ACETAMINOPHEN TAB 500 MG TAB PO PRN; +HEPARIN SODIUM,PORCINE/PF 5,000 UNIT/0.5 ML SYRINGE SQ PRN; +HYDROmorphone 0.5 MG/0.5 ML SYRINGE IVP PRN; +LACTATED RINGERS 1,000 ML IV SCH; -MELOXICAM 7.5 MG TAB PO PRN; -MIDAZOLAM 2 MG/2 ML VIAL IV PRN; -ROPIVACAINE 246.25 MG, EPINEPHrine 0.5 MG, KETOROLAC 30 MG, cloNIDine HCL/PF 80 MCG, WA... MISCELLANE PRN; -TRANEXAMIC ACID 1,000 MG in SODIUM CHLORIDE 0.9% 100 ML IVPB PRN
--- NOTE | 2022-03-18 10:08 | P.GSHP ---
History of Present Illness H&P Date: 03/18/22 CHIEF COMPLAINT: Ventral hernia. HISTORY OF PRESENT ILLNESS: The patient is a 61-year-old female who presents with swelling along the abdomen for over 1 month with pain and tenderness. Findings were consistent with ventral hernia. Now she presents for further evaluation and management. PAST MEDICAL HISTORY: Please see list and reviewed. PAST SURGICAL HISTORY: Please see list and reviewed. MEDICATIONS: Please see list and reviewed. ALLERGIES: Please see list and reviewed. SOCIAL HISTORY: Please see list and reviewed. FAMILY HISTORY: No reports of Crohn disease or ulcerative colitis. REVIEW OF ORGAN SYSTEMS: CONSTITUTIONAL: No reports of fevers or chills. Has morbid obesity.. GI: Denies any blood in stools or constipation. HEENT: Denies any trouble with vision, hearing or nosebleeds. No difficulty swallowing. LYMPHATIC: The patient denies any lumps and bumps around the neck. ENDOCRINE: Has thyroid disorders. Denies any blood sugar glucose intolerance. RESPIRATORY: Denies pneumonia. Denies any troubles with breathing or dyspnea on exertion. CARDIOVASCULAR: Denies any chest pain, palpitations, or recent heart attacks. GENITOURINARY: Denies any blood in urine or increased urinary frequency. MUSCULOSKELETAL: Has back pain, stiffness, joint arthritis. NEUROLOGIC: Denies any numbness or tingling along the distal extremities. No seizure disorders or headaches. PSYCHIATRIC: No depression. No suidical ideation. HEMATOLOGIC: Denies any abnormal bleeding or bruising. BREASTS: Denies any breast lumps, pain or nipple discharge. PHYSICAL EXAM: VITAL SIGNS: Stable GENERAL: Well-developed pleasant female in no acute distress. HEENT: No scleral icterus. Extraocular movements grossly intact. Moist buccal mucosa. NECK: Supple without lymphadenopathy. CHEST: Unlabored respirations. Equal bilateral excursions. CARDIOVASCULAR: Regular rate and rhythm. Distal 2+ pulses. ABDOMEN: Soft, nondistended. Tender along the abdomen. Protuberant. MUSCULOSKELETAL: No clubbing, cyanosis, or edema. SKIN: Well perfused. PSYCH: Alert and oriented. No focal or lateralizing signs. ASSESSMENT: 1. Ventral hernia. 2. Morbid obesity, BMI 35.9 PLAN: 1. Recommend proceeding with robotic ventral hernia repair with mesh. 2. Benefits and risks of surgical intervention was discussed including possibility of open technique. 3. DVT prophylaxis. 4. Antibiotic prophylaxis. 5. She is elevated risk with BMI over 35 and morbid obesity. Past Medical History Past Medical History: Fibromyalgia, GERD/Reflux, Osteoarthritis (OA), Skin Disorder, Thyroid Disorder Additional Past Medical History / Comment(s): Hypoglycemia, occ migraines, Shyla's, hx palipitations, chronic pain syndrome, hx anemia, HX HO'S PALSY R/T COVID VACCINE History of Any Multi-Drug Resistant Organisms: None Reported Past Surgical History: Breast Surgery, Joint Replacement, Tubal Ligation Additional Past Surgical History / Comment(s): BILAT TKA, CYST REMOVED FROM RT BREAST, COLONOSCOPY Past Anesthesia/Blood Transfusion Reactions: No Reported Reaction Smoking Status: Never smoker - Past Family History Mother Family Medical History: Deep Vein Thrombosis (DVT), Pulmonary Embolus Father Family Medical History: Cancer Medications and Allergies Home Medications Medication Instructions Recorded Confirmed Type Meloxicam [Mobic] 15 mg PO HS 03/08/21 03/16/22 History Multivitamins, Thera [Multivitamin 1 tab PO DAILY 03/08/21 03/16/22 History (formulary)] Vitamin C(Unknown Dose) 1 tab PO DAILY 03/08/21 03/16/22 History Vitamin D3(Unknown Dose) 1 tab PO DAILY 03/08/21 03/16/22 History HYDROcodone/APAP 5-325MG [[place]vo 1 tab PO Q6HR PRN 03/16/22 03/16/22 History 5-325] Levothyroxine Sodium [Euthyrox] 88 mcg PO DAILY 03/16/22 03/16/22 History Allergies Allergy/AdvReac Type Severity Reaction Status Date / Time amoxicillin AdvReac Rash/Hives Verified 03/16/22 14:53 tramadol AdvReac Confusion Verified 03/16/22 14:53 COVID VACCINE Allergy HO'S Uncoded 03/16/22 15:10 PALSY
[2022-03-18] MEDS ORDERED: SCOPOLAMINE 1 MG/72 HR PATCH TRANSDERM PRN (10:09)
[2022-03-18] MEDS ORDERED: GABAPENTIN 300 MG CAP PO PRN (10:09)
[2022-03-18] MEDS ORDERED: ACETAMINOPHEN TAB 500 MG TAB PO PRN (10:09)
[2022-03-18] MEDS ORDERED: MELOXICAM 7.5 MG TAB PO PRN (10:09)
[2022-03-18 12:05] LABS: Glucose,Whole Blood 135 mg/dL (75-99)
[2022-03-18 12:17] LABS: Basophils % (A) 0 %; Eosinophils # (A) 0.1 k/uL (0-0.7); Eosinophils % (A) 2 %; HCT 40.3 % (34.0-46.0); HGB 12.8 gm/dL (11.4-16.0); Lymphocytes # (A) 1.4 k/uL (1.0-4.8); Lymphocytes % (A) 25 %; MCH 30.7 pg (25.0-35.0); MCHC 31.8 g/dL (31.0-37.0); MCV 96.5 fL (80.0-100.0); Mean Platelet Volume 7.2; Monocytes # (A) 0.3 k/uL (0-1.0); Monocytes % (A) 6 %; Neutrophils # (A) 3.5 k/uL (1.3-7.7); Neutrophils % (A) 63 %; Platelet Count 214 k/uL (150-450); RBC 4.18 m/uL (3.80-5.40); RDW 13.4 % (11.5-15.5); WBC 5.5 k/uL (3.8-10.6)
[2022-03-18] MEDS ORDERED: MIDAZOLAM 2 MG/2 ML VIAL IV ONE (12:17)
--- NOTE | 2022-03-18 12:56 | P.ANPRN ---
Procedure Note - Anesthesia - Nerve Block Performed Bilateral Rectus Abdominis Single Time Out Performed: Yes (1216) Date of Procedure: 03/18/22 Procedure Start Time: 12:16 Procedure Stop Time: 12:26 Location of Patient: PreOp Indication: Acute Post-Operative Pain, Dx/Pain Location (Abdomen) Sedation Type: Sedate with meaningful contact maintained Preparation: Sterile Prep Position: Supine Catheter: None Needle Types: Pajunk Needle Gauge: 21 Ultrasound used to visualize needle placement: Yes Ultrasound used to observe medication spread: Yes Injectate: 0.5% Ropivacaine (see comment for volume) (30 cc and 20 cc of Normal saline) Blood Aspirated: No Pain Paresthesia on Injection Noted: No Resistance on Injection: Normal Image Stored and Saved: Yes Events: Uneventful and Well Tolerated
[2022-03-18] MEDS ORDERED: KETOROLAC 15 MG/ML 1 ML VIAL ONE (13:06)
[2022-03-18] MEDS ORDERED: ROPIVACAINE 5 MG/ML 30 ML VIAL ONE (13:06)
[2022-03-18] MEDS ORDERED: PHENYLEPHRINE-0.9% NACL SYG 1,000 MCG/10 ML SYRINGE ONE (13:06)
[2022-03-18] MEDS ORDERED: HYDROmorphone (PF) 1 MG/ML ONE (13:06)
[2022-03-18] MEDS ORDERED: MIDAZOLAM 2 MG/2 ML VIAL ONE (13:06)
[2022-03-18] MEDS ORDERED: ROCURONIUM 10 MG/ML (5 ML VIAL) IV ONE (13:06)
[2022-03-18] MEDS ORDERED: fentaNYL (PF) 50 MCG/ML 2 ML AMP ONE (13:06)
[2022-03-18] MEDS ORDERED: NEOSTIGMINE 1 MG/ML 10 ML VIAL ONE (13:06)
[2022-03-18] MEDS ORDERED: GLYCOPYRROLATE 0.2 MG/ML 2 ML VIAL ONE (13:06)
[2022-03-18] MEDS ORDERED: SODIUM CHLORIDE 0.9% (PF) 10 ML VIAL ONE (13:06)
[2022-03-18] MEDS ORDERED: PROPOFOL 10 MG/ML 20 ML VIAL IV ONE (13:06)
[2022-03-18] MEDS ORDERED: SUCCINYLCHOLINE CHLORIDE 100 MG/5 ML SYR IV ONE (13:06)
[2022-03-18] MEDS ORDERED: DEXAMETHASONE SOD PHOSPHATE 10 MG/ML 1 ML VIAL ONE (13:06)
[2022-03-18] MEDS ORDERED: LIDOCAINE 2% INJ 20 MG/ML (2 ML VIAL) ONE (13:06)
[2022-03-18] MEDS ORDERED: LIDOCAINE 0.5%-EPI 1:200,000 50 ML VIAL SQ ONE (13:41)
--- NOTE | 2022-03-18 14:43 | P.OP ---
Date of Procedure: 03/18/22 Description of Procedure: SURGEON: CECILIA ROBERTS MD PREOPERATIVE DIAGNOSES: 1. Initial epigastric ventral hernia with incarceration 2. Morbid obesity due to excess calories, BMI 36.2 3. Fibromyalgia 4. Shyla's disease with hypothyroidism 5. Gastroesophageal reflux disease 6. Migraines 7. Chronic pain syndrome POSTOPERATIVE DIAGNOSES: 1. Initial epigastric ventral hernia with incarceration, 3 cm 2. Morbid obesity due to excess calories, BMI 36.2 3. Fibromyalgia 4. Shyla's disease with hypothyroidism 5. Gastroesophageal reflux disease 6. Migraines 7. Chronic pain syndrome OPERATION: 1. Robotic-assisted da Adam Xi laparoscopic repair of initial incarcerated umbilical hernia with mesh, ventralight ST mesh 11.4 cm Anesthesia: GETA, regional, local Estimated Blood Loss (ml): 10 Pathology: NONE COMPLICATIONS: None. Operative Findings: 1. Epigastric ventral hernia defect 3 x 3 cm 2. Fascia repaired using #1 V-lock suture intraperitoneal mesh placement with underlying INDICATIONS: The patient is a 61-year-old female who presents with a personal history of symptomatic ventral hernia. Surgical intervention with laparoscopic versus robotic and open techniques were reviewed. Placement of mesh was also reviewed. Benefits and risks were thoroughly described. Informed consent was obtained. DESCRIPTION OF PROCEDURE: The patient was brought into the operating room and laid in supine position. After general induction, the abdomen had been prepped and draped in standard sterile fashion. Ioban draping was also placed. Prior to incision, a timeout protocol was confirmed with surgical team regarding the patient's name including procedures to be performed. The robot was primed prior to the procedure. A field block using local anesthetic was placed along hernia site including the proposed port sites. Initial incision was made with an #11 blade along the left upper quadrant. A 0 degree 5 mm laparoscopic trocar entry was performed and insufflated. Three 8 mm ports were placed along the left lateral abdominal wall under direct l ocalization after exchanging the 5-mm for an 8 mm port. Placements of the ports were 15 cm from the target anatomy and 10 cm apart. An accessory 12 mm port was placed at the left epigastrium for exchange of mesh including sutures. The [employer] Xi robot was previously primed, prepped and draped then docked from the right side of the patient onto the left side of the patient. I then sat at the robot CleanMy[employer] Xi console where working arms of the robot including Bovie cautery connected to robotic scissors, needle local combination truck driver, and graspers placed by the practice assistant. Incarcerated omental contents were found along the upper midline defect. The defect was reduced revealing: Upper midline defect 3 x 3 cm. The incarcerated contents were reduced as the peritoneal fat was cleaned from the abdominal wall. Next, hemostasis was checked with cautery. The hernia defects were oversewn using #1 nonabsorbable V-lock suture with fascial imbrication x 2. Next, ventralight ST mesh 11.4 cm was placed with the rough side towards the abdominal wall. 2-0 VLOC 9 inch absorbable sutures were used to fixate the mesh. A final endoscopic imaging was obtained. All instruments and pneumoperitoneum were evacuated from the abdominal cavity. The da Adam Xi robot was undocked from the patient. I re-scrubbed into the case for closure of incisions. The fascia of the 12-mm port was probed and less than 8-mm in size. The incisions were reapproximated using 4-0 Monocryl in an interrupted subcuticular fashion. Liquid glue was applied to the skin after cleansing the skin with normal saline and dilute hydrogen peroxide. An abdominal binder was placed. An umbilical dressing was placed prior. At the end of the procedure, needle, sponge, and instrument count had been verified correct by director medical surgical. The patient was taken to the postanesthesia care unit in stable condition. Plan - Discharge Summary Discharge Rx Participant: Yes New Discharge Prescriptions: New Simethicone [Gas-X] 125 mg PO AC-TID PRN #20 capsule PRN Reason: Pain Acetaminophen Tab [Tylenol Tab] 1,000 mg PO Q6HR PRN #30 tablet PRN Reason: Pain Continue Multivitamins, Thera [Multivitamin (formulary)] 1 tab PO DAILY Meloxicam [Mobic] 15 mg PO HS Vitamin D3(Unknown Dose) 1 tab PO DAILY Vitamin C(Unknown Dose) 1 tab PO DAILY HYDROcodone/APAP 5-325MG [[place] 5-325] 1 tab PO Q6HR PRN PRN Reason: Pain Levothyroxine Sodium [Euthyrox] 88 mcg PO DAILY Discharge Medication List Meloxicam [Mobic] 15 mg PO HS 03/08/21 [History] Multivitamins, Thera [Multivitamin (formulary)] 1 tab PO DAILY 03/08/21 [History] Vitamin C(Unknown Dose) 1 tab PO DAILY 03/08/21 [History] Vitamin D3(Unknown Dose) 1 tab PO DAILY 03/08/21 [History] HYDROcodone/APAP 5-325MG [[place] 5-325] 1 tab PO Q6HR PRN 03/16/22 [History] Levothyroxine Sodium [Euthyrox] 88 mcg PO DAILY 03/16/22 [History] Acetaminophen Tab [Tylenol Tab] 1,000 mg PO Q6HR PRN #30 tablet 03/18/22 [Rx] Simethicone [Gas-X] 125 mg PO AC-TID PRN #20 capsule 03/18/22 [Rx] Follow up Appointment(s)/Referral(s): Cecilia Roberts MD [STAFF PHYSICIAN] - 03/23/22 (Telehealth) Patient Instructions/Handouts: Laparoscopic Herniorrhaphy (DC), *[facility] - Managing Your Pain After Surgery Without Opioids, Umbilical Hernia (DC), Abdominal Binder (DC) Activity/Diet/Wound Care/Special Instructions: DO NOT REMOVE UMBILICAL DRESSING. Using antibacterial soap. No lifting over 4 pounds 4 weeks, April 18March shower. No bathtub soaks for 2 weeks, April 01 Wear abdominal binder daily for comfort except for showering. Use ice along incisions for today to prevent swelling. Take tylenol, aleve/ibuprofen, simethicone scheduled for 3 days for best pain relief Discharge Disposition: HOME SELF-CARE
[2022-03-18 14:48] VITALS: TEMP 97.7
[2022-03-18] MEDS ORDERED: LACTATED RINGERS 1,000 ML IV ONE (16:42)
[2022-03-18 17:19] VITALS: RESP 20
[2022-03-18] MEDS ORDERED: TAMSULOSIN 0.4 MG CAP.ER.24H PO ONE (18:08)
[2022-03-18 18:13] VITALS: BP 120/70; PULSE 68
== END 2022-03-18 19:03 | disposition home or self-care (01) ==
LOC: OR 10:01
PROVIDERS: ATTEND Surgery Plastic and Reconstructive Surgery
DX: K43.6 Other and unspecified ventral hernia with obstruction, without gangrene (principal); G89.4 Chronic pain syndrome; K21.9 Gastro-esophageal reflux disease without esophagitis; M19.90 Unspecified osteoarthritis, unspecified site; M79.7 Fibromyalgia; E06.3 Autoimmune thyroiditis; E66.01 Morbid (severe) obesity due to excess calories; Z68.36 Body mass index [BMI] 36.0-36.9, adult; Z79.1 Long term (current) use of non-steroidal anti-inflammatories (NSAID); Z88.0 Allergy status to penicillin; Z88.5 Allergy status to narcotic agent; Z88.8 Allergy status to other drugs, medicaments and biological substances; Z96.653 Presence of artificial knee joint, bilateral
CPT/HCPCS: 49653; 64999; 85025; C1781; J2250; J1100 ×2; J2710; J0690; J2405; J3010; J1170 ×2; J2795; J1885; J2370; J0330; J2704; J1644; J2001

== ENCOUNTER → 2022-06-01 | Outpatient (CLI) | payer MEDICAID ==
--- NOTE | 2022-06-02 07:21 | XR ---
EXAMINATION TYPE: XR lumbosacral spine min 4V DATE OF EXAM: 06/01/2022 COMPARISON: None HISTORY: Lumbago and sciatica left side TECHNIQUE: 3 view lumbar spine FINDINGS: There are 5 lumbar vertebral bodies. L1-L4 pedicles are intact. L5 pedicles are not well vi sualized. Some facet degenerative changes present L5-S1. Posterior disc space narrowing is present at L3-4 through L5-S1. Grade 1 spondylolisthesis of L5 on S1 may be present. Minimal retrolisthesis of L2 on L3 is present. There is diffuse loss of disc height at L2-3. MRI can be performed if additional evaluation would be of benefit. IMPRESSION: 1. Grade 1 Retrolisthesis of L2 on L3. 2. Grade 1 L5 anterolisthesis on S1. 3. Diffuse degenerative disc changes through the lumbar spine discussed above. 4. MRI be performed as clinically indicated.
== END | disposition home or self-care (01) ==
LOC: RADXRMAIN 16:17
PROVIDERS: ATTEND Family Medicine
DX: M43.16 Spondylolisthesis, lumbar region (principal); M43.17 Spondylolisthesis, lumbosacral region; M51.27 Other intervertebral disc displacement, lumbosacral region
CPT/HCPCS: 72110

== ENCOUNTER → 2022-07-27 | Outpatient (CLI) | payer MEDICAID ==
--- NOTE | 2022-07-28 04:51 | MR ---
EXAMINATION TYPE: MR lumbar spine wo con DATE OF EXAM: 07/27/2022 COMPARISON: None HISTORY: Low back pain that radiates down left leg, sometimes right. Multiplanar multiecho imaging of the lumbar spine performed with no contrast. There is anterior subluxation of L5 in relation to S1. There is a 3 mm subluxation. There is a minima l retrolisthesis at L2-3. There is degenerative disc space narrowing throughout the lumbar spine with decreased signal in the disks. No compression fracture. There is posterior disc bulging from L2 to S 1. No significant spinal stenosis. No lumbar paraspinal mass. No focal bone destruction. IMPRESSION: Minimal subluxation deformities. Degenerative first-degree L5-S1 spondylolisthesis. Multilevel mild p osterior disc bulging. No significant spinal stenosis no fracture seen. There is mild bilateral neura l foraminal narrowing at L5-S1 due to the subluxation deformity.
== END | disposition home or self-care (01) ==
LOC: RADMRIMAIN 16:49
PROVIDERS: ATTEND Family Medicine
DX: M51.36 Other intervertebral disc degeneration, lumbar region (principal); M43.16 Spondylolisthesis, lumbar region; M48.061 Spinal stenosis, lumbar region without neurogenic claudication
CPT/HCPCS: 72148

== ENCOUNTER → 2022-10-20 | Outpatient (CLI) | payer MEDICAID ==
--- NOTE | 2022-10-20 10:18 | CA ---
Exercise Stress Test Report Name: Shania Joseph Exam Date: 10/20/2022 08:41 Exam Location: [place] Stress Ht (in): 60 Wt (lb): 190 BSA: 1.83 Ordering Phys: Sunny Anderson DO Referring Phys: Sunny Anderson DO Technologist: SAMANTHA,, Age: 62 Gender: F : 1960 Procedure CPT: Indications: R00.2 palpitations ICD-10 Codes: Patient History: Abnormal ekg, palpitations and pre op Medications: Meds past 24 hrs: Pretest Chest Pain: STRESS TEST Iván Protocol Exercise Duration (min:sec): 03:[address] Depressions (mm): Angina Score: Singh Score: Resting HR (bpm): 65 Peak HR (bpm): 117 Resting BP (mmHg): 151 / 86 Peak BP (mmHg): 158 / 100 MPHR: 157 Target HR: 133 % MPHR: 75 METS: 6.2 Total Dose: Peak Dose: Atropine: Double Product: 42889 BP Response: Stress Termination: Back and hip pain Stress Symptoms: No chest pain or symptoms Stress Summary: ECG ANALYSIS Resting ECG: Normal sinus rhythm normal axis normal intervals Stress ECG: Patient exercised on Iván protocol for a total of 3 minutes and 50 seconds and the test was stopped secondary to back and hip pain. Patient will obtain chemistry percent of predicted maximal heart rate. During exercise patient developed a wide complex rhythm that seems to be an idioventricular rhythm with right bundle branch block resolves continuously and patient and remained in sinus rhythm subsequently CONCLUSIONS Poor exercise tolerance Inconclusive EKG part of the stress test due to inability to attain target heart rate Idioventricular rhythm with right bundle branch block with exercise Dr. Kyler Orr MD (Electronically Signed) Final Date: 20 October 2022 10:17
== END | disposition home or self-care (01) ==
LOC: RADNMMAIN 08:04
PROVIDERS: ATTEND Family Medicine
DX: I45.10 Unspecified right bundle-branch block (principal); I49.2 Junctional premature depolarization
CPT/HCPCS: 93017

== ENCOUNTER → 2023-03-01 | Outpatient (CLI) | payer MEDICAID ==
--- NOTE | 2023-03-01 09:37 | CT ---
EXAMINATION TYPE: CT lumbar spine wo con DATE OF EXAM: 03/01/2023 COMPARISON: MRI 07/27/2022 HISTORY: 62-year-old female M43.16, Spondylolisthesis, LT leg pain TECHNIQUE: Contiguous axial scanning of the lumbar spine without IV contrast. Coronal and sagittal re constructions performed. CT DLP: 1018.60 mGycm Automated exposure control for dose reduction was used. FINDINGS: Degenerative change at the right greater than left SI joints. Advanced hypertrophic facet arthropathy throughout. This results in a prominent grade 1 retrolisthesis at L2-L3. Lesser degree of retrolisthesis L3-L4. Grade 2 anterolisthesis L5-S1. Vertebral body heights are preserved. [id number] multilevel degenerative disc disease. Baastrup's disease with greatest spinous process abutment and degeneration at L3-L4. Overall changes result in mild spinal canal stenosis at L2-L3. Mild impression on the ventral thecal sac at L3-L4 and L4-L5 without significant stenosis. Additional mild overall narrowing of the spinal canal due to the grade 2 anterolisthesis at L5-S1. On the right, changes contribute to moderate neuroforaminal stenosis at L5-S1 and mild at L4-L5. Mode rate L2-L3. On the left, changes results in moderate to severe neuroforaminal stenosis at L5-S1 and mild at L2-L3 . IMPRESSION: 1. ADVANCED HYPERTROPHIC FACET ARTHROPATHY THROUGHOUT. DEGENERATIVE GRADE 1 RETROLISTHESIS L2-L3 AND LESSER DEGREE AT L3-L4. GRADE 2 ANTEROLISTHESIS OF L5-S1. 2. 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 3. OVERALL CHANGES RESULT IN MILD SPINAL CANAL STENOSIS AT L2-L3 AND L5-S1. NO HIGH-GRADE CANAL COMPR OMISE BY CT. 4. MODERATE TO SEVERE LEFT AND MODERATE RIGHT NEUROFORAMINAL STENOSIS AT L5-S1. Moderate on the right at L2-L3. 5. Degenerative change right greater than left SI joints.
== END | disposition home or self-care (01) ==
LOC: RADCTMAIN 08:02
PROVIDERS: ATTEND Orthopaedic Surgery
DX: M43.16 Spondylolisthesis, lumbar region (principal); M47.816 Spondylosis without myelopathy or radiculopathy, lumbar region; M48.061 Spinal stenosis, lumbar region without neurogenic claudication; M99.73 Connective tissue and disc stenosis of intervertebral foramina of lumbar region
CPT/HCPCS: 72131

== ENCOUNTER → 2023-04-06 | Outpatient (CLI) | payer MEDICAID | END | disposition home or self-care (01) | LOC: LABPAT 09:31 | PROVIDERS: ATTEND Orthopaedic Surgery | DX: Z01.812 Encounter for preprocedural laboratory examination (principal); Z22.322 Carrier or suspected carrier of Methicillin resistant Staphylococcus aureus; M43.16 Spondylolisthesis, lumbar region; M47.816 Spondylosis without myelopathy or radiculopathy, lumbar region; M48.061 Spinal stenosis, lumbar region without neurogenic claudication | CPT/HCPCS: 87070 ==

== ENCOUNTER 2023-04-12 08:58 | Observation (INO) | payer MEDICAID ==
[2023-04-08 09:25] VITALS: BMI 35.2
--- NOTE | 2023-04-11 06:50 | P.HPOR ---
History of Present Illness H&P Date: 04/06/23 .D:Date: 04/06/23 : 08:55am .T:Title: [facility] Date of :[birth year] Age: 62 year Height: 5' Weight: 180 lbs BMI: 35.15 kg/m2 Occupation: Retired VAS: 7 CHIEF COMPLAINT: Preoperative appointment for L4-S1 posterior lumbar interbody fusion DOI:Chronic DOS: None Duration of current treatment regiment:>3 months HISTORY : Xrays No New xrays taken in office Trauma or injury No Work-Related No Pain description Burning, sharp Location Diffuse Patient notes that their pain radiates to left lower extremity Activity Modification Yes Hand Dominance Right TREATMENTS COMPLETED: 6 weeks of PT completed? Month and Year of last PT date? None recent No Physician recommended home exercise completed? Duration of HEP course: >3 months Yes Patient has trialed the physician directed home exercise program forwithout relief of their symptoms. Medications Yes List: marijuana edibles & Ibuprofen Alternative interventions Chiropractic: No Massage therapy: No R.I.C.E: yes , without relief Brace: No Injections No RFA:No SUBJECTIVE: Ms. Joseph presents to the office for a preoperative appointment for her L4-S1 PLIF. The patient continues to experience a burning, sharp lumbar pain that has been ongoing for several years with no known injury or trauma to indicate an exact onset of their symptoms. In addition to their lumbar pain, they do report that it radiates into the left lower extremity, associatedwith numbness and tingling through the L4-L5 dermatomal distribution. Overall the patient has seen a progressive increase in symptoms since their onset. Ms. Joseph's symptoms are exacerbated with prolonged standing and ambulation, and due to this she notes that it is increasingly difficult for her to complete many of her daily tasks. The patient is having severe sleep disturbances as well due to their ongoing pain and associated symptoms. Regarding treatments, the patient has previously trialed home exercises, medications, and heat/ice all without relief of her symptoms. The patient denies trialing any other modalities at this time. For their symptoms, the patient has been taking Ibuprofen and marijuana edibles without significant or sustained relief. Otherwise the patient denies any f/c/sob/cp, no incision concerns, no bladder or bowel retention/incontinence, no perineal numbness/tingling, and ambulates with a cane today. HPI: Ms. Joseph presented to the office on 02/21/2023 for a follow up of their low back pain and to schedule surgery. Patient reports a burning, sharp lumbar pain ongoing for several years with no known injury or trauma to indicate an exact onset of their symptoms. In addition to their lumbar pain, they do report that it radiates into the left lower extremity, associatedwith numbness and tingling through the L4-L5 dermatomal distribution. Overall the patient has seen a progressive increase in symptoms since their onset. Ms. Joseph symptoms are exacerbated with prolonged standing and ambulation, due to this they notes that it is increasingly difficult for Ms. Joseph to complete many of their daily tasks. Patient is having severe sleep disturbances as well due to their ongoing pain and associated symptoms. Regarding treatments, the patient has previously trialed home exercises, medications, and heat/ice all without relief of her symptoms. Patient denies trialing any other modalities at this time. For their symptoms, the patient has been taking IBU 200mg, Mobic 15mg and marijuana edibles all without relief. Otherwise the patient denies any f/c/sob/cp, no incision concerns, no bladder or bowel retention/incontinence, no perineal numbness/tingling, and ambulates independently. Ms. Joseph presents to the office for an evaluation on 08/09/2022 of their low back pain. Patient reports a burning, sharp lumbar pain ongoing for several years with no known injury or trauma to indicate an exact onset of their symptoms. In addition to their lumbar pain, they do report that it radiates into the left lower extremity, associatedwith numbness and tingling through the L4- L5 dermatomal distribution. Overall the patient has seen a progressive increase in symptoms since their onset. Ms. Joseph symptoms are exacerbated with prolonged standing and ambulation, due to this they notes that it is increasingly difficult for Ms. Joseph to complete many of their daily tasks. Patient is having severe sleep disturbances as well due to their ongoing pain and associated symptoms. Regarding treatments, the patient has previously trialed home exercises, medications, and heat/ice all without relief of her symptoms. Patient denies trialing any other modalities at this time. For their symptoms, the patient has been taking [place] 5/325mg, Aleve 220mg, IBU 200mg, Mobic 15mg all without relief. Otherwise the patient denies any f/c/sob/cp, no incision concerns, no bladder or bowel retention/incontinence, no perineal numbness/tingling, and ambulates independently. The patients' past social, medical, family, surgical history, as well as review of systems, have been reviewed. Please refer to the Neurosurgery History and Physical form that has been scanned in to our electronic medical record system. 16 points review of systems completed and as stated in HPI, all other systems reviewed are negative. Social History: Reviewed, see appropriate section of the chart for details. P3 Social History: Smoking: never a smoker P3 Alcohol: rare alcohol P3 Family History: Reviewed, see appropriate section of the chart for details. P2 Past Medical History: Reviewed, see appropriate section of the chart for details. [id number] Medications: Rx: FISH OIL ORAL , Ref: 0 Rx: LEVOTHYROXINE SODIUM 88MCG ORAL Tablet, Ref: 11 Rx: MULTIVITAMINS ORAL Tablet, Ref: 11 Rx: VITAMIN D 50463LP ORAL , Ref: 0 Rx: ibuprofen Ref: 0 Rx: edibles , Ref: 0 Rx: HYDROcodone 5 mg-acetaminophen 325 mg tablet Ref: 0 Rx: Mobic Ref: 0 PHYSICALEXAMINATION: General: Awake, alert, appropriate for age, in no acute distress. HEENT:No unusual neck masses around region of lateral neck triangle, thyroid, supraclavicular groove Heart:Regular rate and rhythm, normal S1, S2 and no murmur/gallop. Lungs:Clear to auscultation bilaterally with no use of accessory muscles. Extremities:Skin warm and dry without acute lesions, coloration, temperature, skin intact, no tenderness or erythema Integument: Hairy patches:ABSENT Dorsal skin dimples:ABSENT Cafe au lait spots:ABSENT Palpation: Please see Pain drawing on Intake sheet for further detail. Midline spinal tenderness:No E6 Cervical Tenderness: No E6 Paralumbar tenderness:YES E6 Parathoracic tenderness:No E6 Buttocks tenderness:YES E6 POSTURAL and MUSCULO-SKELETAL EVALUATION: Coronal Balance:NEUTRAL Recumbent testing:Patient isable to lay flat on back Sagittal Balance:NEUTRAL Shoulder Profile:LEVEL Pelvic Girdle:LEVEL Neck ROM:UNRESTRICTED Lumbar ROM:RESTRICTED Shoulder ROM:Symmetrical Hip ROM:Symmetrical Knee ROM:Symmetrical Hands:Normal appearance, symmetrical Feet:Normal appearance, Symmetrical VASCULAR STATUS : LEFT RIGHT Wrist Pulses INTACT INTACT Pedal Pulses (Dors. pedis & post.tibialis) INTACT INTACT Color NORMAL NORMAL Edema Absent Absent NEUROLOGICEXAMINATION: Mental Status:Awake and alert, fully oriented, with normal attention, concentration and memory, and fluent, appropriate speech. Cranial Nerves: I: Olfactory not tested. II: Visual acuity normal, no visual field deficit noted with confrontation. III,IV: Normal pupillary reflexes & intact extraocular movements without nystagmus. V,: Intact symmetrical facial sensation. VII: Intact symmetrical facial motor movement VIII: Hearing intact. IX,X: Intact gag, swallow, & normal voice. XI: Sternocleidomastoid, trapezius function intact. XII: Tongue midline with normal movements. L'hermitte's Sign: Negative / absent Spurling'Sign: Absent bilaterally. Cubital percussion test: Absent bilaterally. Reina-Tinel sign - Carpal region: Absent bilaterally. Straight Leg Raising: Absent bilaterally. Crossed straight leg raise: negative O8 MOTOR EXAM (0-5/5, N/T) UPPER EXTREMITY Shoulder Abduction Biceps Triceps Wrist Extension Hand [employer] Technician Right 5/5 5/5 5/5 5/5 5/5 5/5 Left 5/5 5/5 5/5 5/5 5/5 5/5 LOWER EXTREMITY Hip Flexion Knee Extension Knee Flexion DF PF EHL FHL Right 5/5 5/5 5/5 5/5 5/5 5/5 5/5 Left 4/5 4/5 4/5 4/5 4/5 4/5 4/5 REFLEXES(0-4/2, NT)Upper ExtremityLower Extremity Right 2 2 Left 2 2 Pathological Reflexes RIGHT LEFT Reina's Absent Absent Clonus Absent Absent Babinski Absent Absent # Indicates mechanical impairment Muscle appearance: Symmetrical, without signs of atrophy or dystrophy. Sensory system (0-4, N/T) Test type RU SUGEY RL LL Joint-Position 2 2 2 2 Vibration 2 2 2 2 Pain & LT sense 2 2 2 2 Dermatomal Deficit: None None L4 L4-L5 Gait and Functional Evaluation: Ambulatory aids: Independent Romberg's test: Intact bilaterally Toe heel walk / heel-toe walk intact while maintaining satisfactory balance? No Squatting/straightening w/o assistance to a min of 60 degree knee flexion? No Single leg stance: not-intact left side Trendelenburg sign negative bilaterally Hand and finger dexterity intact bilaterally? yes Disdiadochokinesis examination negative bilaterally? yes RADIOGRAPHIC STUDIES: XRay (multiview) taken on 08/09/22 of Lumbar Spine and Pelvis: Images reviewed these demonstrate multilevel spondylotic changes from L3 through S1. There is a grade 2 spondylolisthesis of L5-S1 which on standing films measures about 9 mm and accentuates to 13.8 mm on flexion films. There is retrolisthesis of L4 5 and L3 4 which is also noted. There is likely pars def ects at L5 bilaterally with pars elongation facet arthrosis at these levels as well. There is a high slip angle at S1 along with high pelvic incidence around 72 with the lumbar lordosis around 48. No acute fractures are noted. No lesions noted. AP pelvis demonstrates congruent level pelvis fracture MRI scan from 07/27/2022 of Lumbar Spine: images are reviewed with the patient these again demonstrated the grade 2 spondylolisthesis of L5-S1 which is partially reduced on the supine film. There are likely pars defects bilaterally however these are chronic with pars elongation. There is severe facet arthrosis noted from L3 through S1. There is retrolisthesis L3 on L4 as well as L4-L5. There is disc desiccation L3 through S1. There is disc height loss L3 4 and L5-S1. There is severe bilateral foraminal stenosis at L5. No acute fractures noted. No lesions. IMPRESSION: It was my pleasure to have seen and examined Shania. I reviewed the patient's clinical syndrome, physical findings, and imaging studies during the appointment today. It is my impression that the patient has a diagnosis of. 1. L4-5 spondylosis 2. Grade 2 spondylolisthesis of L5 on S1 3. Grade 1 spondylolisthesis of L4 on L5 4. Neurogenic claudication 5. Bilateral SI joint osteoarthritis I outlined the natural course history without intervention and various interventional options. PLAN: Based on my findings I suggest the following course of action: I discussed treatment options with the patient, including operative and non- operative options, and they have elected to proceed with the following surgical procedure: lumbar (L4-S1) Posterior lumbar interbody fusion The indications, risks, benefits, and alternatives to surgery were discussed with the patient at length. Specifically (but not limited to) the risks of infection, stiffness, recurrence of symptoms, need for revision surgery, local numbness, neurovascular injury, and blood clots were discussed. The patient's questions were answered. The decision to proceed was made. Consent will be obtained for the procedure. - Ambulate daily - Take medications as directed - Ice and rest for pain and swelling control. Spine Surgery Risk Review and Summary Ms. Joseph is presenting for evaluation of Lumbar pain. It was my pleasure to have seen and examined Ms. Joseph. In addition to their lumbar pain, they do report that it radiates into the left lower extremity, associatedwith numbness and tingling through the L4-L5 dermatomal distribution. Overall the patient has seen a progressive increase in symptoms since their onset. Ms. Joseph symptoms are exacerbated with prolonged standing and ambulation, due to this they notes that it is increasingly difficult for Ms. Joseph to complete many of their daily tasks. Patient is having severe sleep disturbances as well due to their ongoing pain and associated symptoms. In our visit today we have had a chance to go over subjective complaints, physical examination findings and treatments including the natural course history without intervention and various interventional options. The patients imaging demonstrates: XRay (multiview) taken on 08/09/22 of Lumbar Spine and Pelvis: Images reviewed these demonstrate multilevel spondylotic changes from L3 through S1. There is a grade 2 spondylolisthesis of L5-S1 which on standing films measures about 9 mm and accentuates to 13.8 mm on flexion films. There is retrolisthesis of L4 5 and L3 4 which is also noted. There is likely pars defects at L5 bilaterally with pars elongation facet arthrosis at these levels as well. There is a high slip angle at S1 along with high pelvic incidence around 72 with the lumbar lordosis around 48. No acute fractures are noted. No lesions noted. AP pelvis demonstrates congruent level pelvis fracture MRI scan from 07/27/2022 of Lumbar Spine: images are reviewed with the patient these again demonstrated the grade 2 spondylolisthesis of L5-S1 which is partially reduced on the supine film. There are likely pars defects bilaterally however these are chronic with pars elongation. There is severe facet arthrosis noted from L3 through S1. There is retrolisthesis L3 on L4 as well as L4-L5. There is disc desiccation L3 through S1. There is disc height loss L3 4 and L5-S1. There is severe bilateral foraminal stenosis at L5. No acute fractures noted. No lesions. On physical exam, Ms. Joseph demonstrates:Severe low back pain, LE pain and weakness. Paresthesias in the L4-S1 distribution in both legs. Difficulty with ADLs secondary to the pain and weakness as well as buttock pain, neurogenic claudicant like sx with inability to walk long distances which gets better with bending forward or resting along with numbness/tingling in her LE. No bowel or bladder issues currently. I have explained to the patient that as their condition progresses it will cause further neurological deficits and eventual paralysis. Based on the patients imaging, physical exam, and the rapid progression and disabling nature of their symptoms, at this time I recommend surgery in the form of a: lumbar (L4-S1) Posterior lumbar interbody fusion. I discussed the risk and benefits of this procedure at length with Ms. Joseph. The patient agreed to considered pursuing the procedure above mentioned. Prior to surgery, she should follow up with her PCP (Cardio, ID, IM etc) for clearance. Questions were invited and answered, and the patient wishes to proceed as outlined below. Currently, I am recommendin. L4-S1 posterior lumbar interbody fusion 2.Follow up with PCP for surgical clearance 3.Review of surgical risks and benefits as well as an educational packet on the proposed surgical procedure. Risks: All surgical procedures come with inherent risks, including those related to positioning, anesthesia, intraoperative findings, and postoperative complications. It is important to understand that surgery does not come with any guarantee of a successful outcome as complications and adverse events are always possible. The patient was given a handout in office today discussing the surgical procedure and risks associated with the intervention, both of which were discussed with the patient. These risks include but are not limited to the following: * Experiencing same, different or even worse symptoms in back, neck, arms, or legs compared to before surgery. Requiring further surgery or other forms of treatment presently or at some time in the future at same or other levels of the intended spine surgery. On an extreme but fortunately relatively rare basis severe complication such as blindness, stroke, heart attack, temporary and/or permanent nerve injury, paralysis, coma, or may occur, sometimes without known explanation. Surgical complications may include but are not limited to risk of infection, fluid accumulation in the surgical dissection site, including a seroma or hematoma, that requires additional surgery, wound drainage, bleeding, new numbness or weakness, vision changes/loss, spinal fluid leakage, non-healing and/or infected incision, headaches, difficulty or inability to swallow, hoarseness, hemopneumothorax, pneumothorax, impotence, retrograde ejaculation, vaginal dryness; injury to nerves, spinal cord, blood vessels, lymphatics or other vital organs (i.e., bowel injury, injury to the great vessels); heterotopic bone formation; complications related to the hardware such as screws, rods, cages including misplaced hardware, device failure, instrumentation at the wrong spine level, hardware fracture/breakage, or hardware loosening; vertebral failure of the spinal column above or below the newly placed hardware; retained surgical instrumentations or devices and the need for further surgery. * Medical risks of the planned spine surgery include but are not limited to generalized Infections to the whole body or local areas outside of the surgical site (sepsis), heart attack, bleeding, anaphylaxis, meningitis, seizure, epilepsy, hearing loss, burn johnson, laceration of the head or other areas of the body, bruising, hypersensitivity of the skin, bladder over distension; allergic reaction; shoulder injury related to positioning; fat, blood and air clots to other areas of the body like heart, lungs, brain; failure of internal organs such as lungs, kidneys, liver and excessive bleeding. If blood transfusions are necessary, note that transfusions may cause intolerance reactions such as anaphylaxis or other complex reactions. Despite best efforts, the results of spine surgery might not heal in terms of bone, soft tissues such as skin, fascia, ligaments, and joints. Additionally, in order to achieve best possible results, spine surgery may be carried out beyond the initially planned levels and involve decompression, fusion including insertion of hardware at levels other than the original intended area of surgical interest change some portions of the procedure in order to ensure the best possible outcomes. With spine surgery and spinal fusion, there are different off label uses of instrumentation (devices, implants and hardware) as well as biological substances (bone morphogenic proteins, demineralized bone matrix) as well as using extra bone from allograft sources (i.e. cadaver bone) or autograft (iliac crest bone, ribs, or the spine itself). The patient has been given information about these practices and their inherent risks and benefits. [facility] is an educational center that serves as a training facility for neurosurgical and orthopedic [employer] and Nursing students. Physician assistants are medically trained surgical providers who function in the outpatient, inpatient, and operating room setting under the direct supervision of the attending surgeon. [facility] has multiple operating rooms with single and overlapping rooms running daily. They currently function under the required guidelines as produced by the [facility] Finance Committee with regards to the overlapping rooms and will continue to comply with changes to this policy as they occur. The requirements include and are complied with as follows: (1) the critical portions of the overlapping rooms will not occur at the same time, (2) the attending physician will be physically present during the critical portions of the procedure and immediately available during the entire case, and (3) a back-up attending is designated should the primary attending not be immediately availa ble. The patient has had a chance to review all the listed information, has been given print outs detailing this information, and has had all his/her questions answered to their satisfaction. It was my pleasure to have seen and examined Ms. Joseph. In our visit today we have had a chance to go over my understanding of our patient's current condition, the natural course history without intervention and various interventional options. Questions were invited and answered, and the patient wishes to proceed as outlined above. I have seen and examined the patient for 25 minutes and we have spent more than 50% of the time in repeat and detailed counseling about the patient's condition, its natural course history with out and as much as can be predicted with surgery and re-review of various surgical treatment options. In conclusion, Ms. Joseph requested we proceed with the above suggested surgery and are willing to accept risks and limitations of the suggested surgery as nature of the disease process and our best attempts at treatment for the condition. Follow-up: Post procedure Patient Education: (Informational booklet, instructions, etc) given at today's appointment: Yes .ED:Patient Education: Y Medications Reviewed: YES In our visit today Ms. Joseph and I have had a chance to go over my understanding of the patient's current condition, the natural course history without intervention and various interventional options. Questions were invited and answered, and the patient wishes to proceed as outlined above. I will be sure to keep you updated afterMs. Joseph returns here for further follow-up. Thank you again for your referral. Please do not hesitate to contact me if you have any further questions. Signed and authenticated by: Rick Vasquez [facility] [address] [facility], [address] [address] This message is confidential, intended only for the named recipient(s) and may contain information that is privileged or exempt from disclosure under applicable law. If you are not the intended recipient(s), you are notified that the dissemination, distribution or copying of this information is strictly prohibited. If you received this message in error, please notify the sender then delete this message. Patient verbalizes understanding of the information discussed. The above note was initiated by Radha Dominguez, physician recording delivery driver assistant for Dr. Rick Kirkland. This note has been reviewed by Dr. Kirkland, who has made his personal changes and impressions for this document. CC: Sunny Anderson D.O. Past Medical History Past Medical History: Fibromyalgia, GERD/Reflux, Osteoarthritis (OA), Thyroid Disorder Additional Past Medical History / Comment(s): Hypoglycemia, occ migraines, Shyla's, hx palipitations, chronic pain syndrome, hx anemia, HX HO'S PALSY R/T COVID VACCINE, "DR WATCHING A LEAKY VALVE ", ANEMIA History of Any Multi-Drug Resistant Organisms: None Reported Past Surgical History: Breast Surgery, Joint Replacement, Tubal Ligation Additional Past Surgical History / Comment(s): RIGHT TOTAL KNEE , LEFT KNEE, UMBILICAL HERNIA REPAIR, CYST REMOVED FROM RT BREAST, COLONOSCOPY, LEFT KNEE MENISECTOMY - ARTHROSCOPIC Past Anesthesia/Blood Transfusion Reactions: Motion Sickness Smoking Status: Never smoker - Past Family History Mother Family Medical History: Deep Vein Thrombosis (DVT), Pulmonary Embolus Father Family Medical History: Cancer Medications and Allergies Home Medications Medication Instructions Recorded Confirmed Type Meloxicam [Mobic] 15 mg PO HS 03/08/21 04/08/23 History Levothyroxine Sodium [Euthyrox] 88 mcg PO DAILY 03/16/22 04/08/23 History Acetaminophen Tab [Tylenol Tab] 1,000 mg PO Q6HR PRN #30 tablet 03/18/22 04/08/23 Rx Loratadine-Pseudoeph 10-240 mg 1 tab PO Q48H 04/08/23 04/08/23 History [Claritin-D 24 Hour] Simethicone [Gas-X] 125 mg PO AC-TID PRN 04/08/23 04/08/23 History Allergies Allergy/AdvReac Type Severity Reaction Status Date / Time amoxicillin AdvReac Rash/Hives Verified 04/08/23 08:27 tramadol AdvReac Confusion Verified 04/08/23 08:27 COVID VACCINE Allergy HO'S Uncoded 04/08/23 08:27 PALSY Physical Examination Osteopathic Statement: *. No significant issues noted on an osteopathic structural exam other than those noted in the History and Physical/Consult.
[~2023-04-12 08:58] MED LIST changes: +ACETAMINOPHEN TAB 500 MG TAB PO PRN; +GABAPENTIN 300 MG CAP PO PRN; -HEPARIN SODIUM,PORCINE/PF 5,000 UNIT/0.5 ML SYRINGE SQ PRN; -LACTATED RINGERS 1,000 ML IV SCH; +ONDANSETRON 4 MG/2 ML VIAL IVP PRN; +TRANEXAMIC 1,000 MG/100ML-NACL 1,000 MG in SALINE 1 100ML.BAG IVPB PRN
[2023-04-12] MEDS: LACTATED RINGERS 1,000 ML IV SCH (09:35)
[2023-04-12] MEDS ORDERED: ACETAMINOPHEN TAB 500 MG TAB ONE (09:39)
[2023-04-12 09:57] LABS: Glucose,Whole Blood 113 mg/dL (70-110)
[2023-04-12] MEDS ORDERED: GLYCOPYRROLATE 0.2 MG/ML 2 ML VIAL ONE (11:36)
[2023-04-12] MEDS ORDERED: ROCURONIUM 10 MG/ML (5 ML VIAL) IV ONE (11:36)
[2023-04-12] MEDS ORDERED: PHENYLEPHRINE-0.9% NACL SYG 1,000 MCG/10 ML SYRINGE ONE (11:36)
[2023-04-12] MEDS ORDERED: HYDROmorphone (PF) 1 MG/ML ONE (11:36)
[2023-04-12] MEDS ORDERED: NEOSTIGMINE 1 MG/ML 10 ML VIAL ONE (11:36)
[2023-04-12] MEDS ORDERED: SUCCINYLCHOLINE CHLORIDE 200 MG/10 ML VIAL IV ONE (11:36)
[2023-04-12] MEDS ORDERED: KETAMINE 10 MG/ML 20 ML VIAL ONE (11:36)
[2023-04-12] MEDS ORDERED: MIDAZOLAM 2 MG/2 ML VIAL ONE (11:36)
[2023-04-12] MEDS ORDERED: ePHEDrine 50 MG/ML 1 ML VIAL ONE (11:36)
[2023-04-12] MEDS ORDERED: WATER FOR INJECTION, STERILE 10 ML VIAL IV ONE (11:36)
[2023-04-12] MEDS ORDERED: LIDOCAINE 2% INJ 20 MG/ML (2 ML VIAL) ONE (11:36)
[2023-04-12] MEDS ORDERED: TRANEXAMIC 1,000 MG/100ML-NACL PREMIX BAG ONE (11:36)
[2023-04-12] MEDS ORDERED: PROPOFOL 10 MG/ML 20 ML VIAL IV ONE (11:36)
[2023-04-12] MEDS ORDERED: fentaNYL (PF) 50 MCG/ML 2 ML AMP ONE (11:36)
[2023-04-12] MEDS ORDERED: LACTATED RINGERS 1,000 ML IV ONE ×2 (13:00→15:56)
[2023-04-12] MEDS ORDERED: GELATIN SPONGE,ABSORB (LARGE) 1 EACH SPONGE TOPICAL ONE (15:54)
[2023-04-12] MEDS ORDERED: THROMBIN (BOVINE) 5,000 UNIT VIAL TOPICAL ONE (15:55)
[2023-04-12] MEDS ORDERED: VANCOMYCIN 1,000 MG VIAL MISCELLANE ONE (15:55)
[2023-04-12] MEDS ORDERED: GENTAMICIN 80 MG in SODIUM CHLORIDE 0.9% IRRIGATIO 3,000 ML IRRIGATION ONE (16:17)
[2023-04-12] MEDS ORDERED: ceFAZolin 3,000 MG in SODIUM CHLORIDE 0.9% IRRIGATIO 3,000 ML IRRIGATION ONE (16:17)
--- NOTE | 2023-04-12 16:35 | FL ---
Intraoperative/procedural fluoroscopic services were provided. Total fluoroscopy time is 1 minute 31 seconds with a total of 6 submitted images to PACS. Please see the operative/procedural note for furt her details. DAP: 12.730 mGym2
[2023-04-12] MEDS ORDERED: NA PHOS,M-B/NA PHOS,DI-BA 133 ML ENEMA RECTAL PRN (16:41)
[2023-04-12] MEDS ORDERED: HYDROmorphone 0.5 MG/0.5 ML SYRINGE IVP PRN (16:41)
[2023-04-12] MEDS ORDERED: HYDROcodone/APAP 5-325MG 1 EACH TAB PO PRN (16:41)
[2023-04-12] MEDS ORDERED: ONDANSETRON 4 MG/2 ML VIAL IVP PRN (16:41)
[2023-04-12] MEDS ORDERED: MAGNESIUM HYDROXIDE 2,400 MG/10 ML CUP PO PRN (16:41)
[2023-04-12] MEDS ORDERED: bisacodyL 10 MG SUPP RECTAL PRN (16:41)
[2023-04-12] MEDS ORDERED: HYDROcodone/APAP 7.5-325MG 1 EACH TAB PO PRN (16:44)
[2023-04-12] MEDS: HYDROmorphone 1 MG/ML 1 ML SYRINGE IVP PRN (19:00)
[2023-04-12] MEDS: CYCLOBENZAPRINE 5 MG TAB PO PRN (19:00)
--- NOTE | 2023-04-12 21:07 | CT ---
EXAMINATION TYPE: CT lumbar spine wo con CT DLP: 1450.6 mGycm, Automated exposure control for dose reduction was used. DATE OF EXAM: 04/12/2023 8:51 PM COMPARISON: 03/01/2023. CLINICAL INDICATION:Female, 63 years old with history of s/p lumbar fusion; PHH, S/P lumbar fusion. TECHNIQUE: Multiple axial images were obtained from the midportion of T11 through the sacroiliac anali nts. Soft tissue and bone windows in coronal and sagittal planes were obtained and reviewed. Contrast used: none. Oral contrast used: none. FINDINGS: Postsurgical changes to the lumbar spine with fixation hardware at L4, L5, S1 and bilateral iliac bon es. Fracture involving the right iliac bone series 205 image 13. And series 201 image 98 remainder of the osseous structures appear intact. Discectomy at L4-L5 and L5-S1. Hardware limits evaluation at t hese levels. Hardware appears intact. Posterior element surgical changes including laminectomy change s at L4 and L5 present. Postsurgical changes in the soft tissues with foci of gas present. Drainage catheter with tubing in t he surgical bed. Posterior back skin ophelia are present. Advanced degeneration changes of the sacroiliac joints bilaterally. IMPRESSION: Postsurgical changes without evidence of immediate post operative complication.
[2023-04-12] MEDS: 0.9% NACL WITH KCL 20 MEQ/L 1,000 ML IV SCH (21:51)
[2023-04-12] MEDS: GABAPENTIN 300 MG CAP PO SCH (21:52)
[2023-04-13] MEDS: HYDROmorphone 1 MG/ML 1 ML SYRINGE IVP PRN (02:26)
[2023-04-13] MEDS: GABAPENTIN 300 MG CAP PO SCH ×2 (08:23→21:33)
[2023-04-13] MEDS: HYDROcodone/APAP 10-325MG 1 EACH TAB PO PRN ×2 (08:23→16:58)
[2023-04-13] MEDS: SENNOSIDES-DOCUSATE SODIUM 1 EACH TAB PO SCH (08:23)
[2023-04-13 08:24] LABS: Basophils % (A) 0 %; Eosinophils % (A) 0 %; HCT 30.8 % (34.0-46.0); HGB 9.6 gm/dL (11.4-16.0); Hypochromasia Moderate; Lymphocytes # (A) 0.9 k/uL (1.0-4.8); Lymphocytes % (A) 12 %; MCH 30.7 pg (25.0-35.0); MCHC 31.2 g/dL (31.0-37.0); MCV 98.4 fL (80.0-100.0); Mean Platelet Volume 7.3; Monocytes # (A) 0.4 k/uL (0-1.0); Monocytes % (A) 6 %; Neutrophils # (A) 6.1 k/uL (1.3-7.7); Neutrophils % (A) 81 %; Platelet Count 211 k/uL (150-450); RBC 3.13 m/uL (3.80-5.40); RDW 13.1 % (11.5-15.5); WBC 7.6 k/uL (3.8-10.6)
[2023-04-13] MEDS: CYCLOBENZAPRINE 5 MG TAB PO PRN ×2 (08:24→16:58)
[2023-04-13 08:29] LABS: African American GFR (CKD) >90 (>60 ml/min/1.73 sqM); Anion Gap 7 mmol/L; Blood Urea Nitrogen 13 mg/dL (7-17); Calcium 8.2 mg/dL (8.4-10.2); Carbon Dioxide 26 mmol/L (22-30); Chloride 102 mmol/L (98-107); Glucose 175 mg/dL (74-99); Non-African American GFR(CKD) >90 (>60 ml/min/1.73 sqM); Potassium 4.4 mmol/L (3.5-5.1); Sodium 135 mmol/L (137-145)
[2023-04-13] MEDS ORDERED: SIMETHICONE 80 MG CHEWABLE PO PRN (08:38)
[2023-04-13] MEDS: LEVOTHYROXINE 88 MCG TAB PO SCH (09:16)
[2023-04-13] MEDS: LORATADINE-PSEUDOEPH 5-120 MG 1 EACH TAB.ER.12H PO SCH (09:16)
[2023-04-13] MEDS: LACTATED RINGERS 1,000 ML IV SCH (09:23)
--- NOTE | 2023-04-13 11:31 | P.PN ---
Subjective Progress Note Date: 04/13/23 Principal diagnosis: Status post [id number] decompression and fusion Patient was evaluated today at bedside, she is resting in her hospital chair. Patient has been up and ambulating little bit with use of the walker and physical therapy. Patient's status post bringing her back brace later today. She states that she has noticed a significant improvement in the numbnes s involving the left lower extremity. She feels that the legs are low but stronger at this time also. She currently denies any headaches, lightheadedness, chest pain or shortness of breath. She denies any numbness or tingling to the genital or perineal region. Objective - Vital Signs Vital signs: Vital Signs Temp 98.2 F 04/13/23 07:22 Pulse 93 04/13/23 07:22 Resp 18 04/13/23 07:22 BP 130/78 04/13/23 07:22 Pulse Ox 95 04/13/23 07:22 FiO2 Intake & Output 04/12/23 04/13/23 04/13/23 18:59 06:59 18:59 Intake Total 2402 118 Output Total 785 300 270 Balance 1617 -300 -152 Weight 80.74 kg 80.74 kg Intake: IV 2402 Oral 118 Output: Drainage 80 270 Back 80 270 Urine 355 300 Estimated Blood Loss 350 Other: Voiding Method Indwelling Catheter - Exam Gen: AOx3, NAD VSS stable at this time Integument: Dressing is in good position and condition, no active drainage. Drain is in good position and condition, there is a moderate amount of bloody serosanguineous fluid noted Palpation: Tenderness with palpation to the midline and paraspinal region of the lower lumbar spine ROM: Full range of motion in all major muscle groups of the bilateral upper and lower extremities, no focal deficits appreciated Sensory Exam: Senory exam to light touch is intact C5-T1 Senosry exam to light touch is intact L2-S1 Motor: 55 strength patient the bilateral upper extremities with shoulder elevation, s houlder abduction, elbow extension, elbow flexion, wrist extension, wrist flexion, community organizer 4+/5 strength in the bilateral lower extremities with hip flexion, knee extension, knee flexion, plantar flexion, dorsiflexion, EHL, FHL Reflexes: 2/4 in all UE and LE Negative Pablo's bilaterally, negative clonus bilaterally, negative Babinski bilaterally - Labs CBC & Chem 7: 04/13/23 07:48 04/13/23 07:48 Labs: Abnormal Lab Results - Last 24 Hours (Table) 04/13/23 04/13/23 Range/Units 07:48 07:48 RBC 3.13 L (3.80-5.40) m/uL Hgb 9.6 L (11.4-16.0) gm/dL Hct 30.8 L (34.0-46.0) % Lymphocytes # 0.9 L (1.0-4.8) k/uL Sodium 135 L (137-145) mmol/L Glucose 175 H (74-99) mg/dL Calcium 8.2 L (8.4-10.2) mg/dL Assessment and Plan Assessment: Postoperative day #1 status post [id number] decompression and fusion Acute blood loss anemia, expected surgical Plan: Pain control, continue supportive oral medications and IV pain medication as needed. Multiple stool softeners have been ordered, please utilize these daily to help prevent constipation DVT prophylaxis, SCDs and XIOMY hose at this time Wound care, continue monitor surgical dressing and drain, hopeful removal of drain in the next 2448 hours Continue with PT/OT, recommend weight-bear as tolerated with a walker. LSO brace to be worn when up and ambulating. No bending, twisting or lifting at this time Encourage incentive spirometer Medical recommendations Discharge planning: Anticipate discharge to home with home health care in the next 2448 hours Time with Patient: Less than 30
[2023-04-13] MEDS: ENOXAPARIN 40 MG/0.4 ML SYRINGE SQ SCH (12:39)
--- NOTE | 2023-04-13 13:08 | CONS ---
CONSULTATION REASON FOR CONSULTATION: Advice regarding hypothyroidism and other medical issues requested by orthopedics. HISTORY OF PRESENT ILLNESS: This is a 63-year-old woman with a past medical history of multiple medical issues including hypothyroidism, underwent L4-L5 decompression and fusion. There is no history of any fever or rigors. No history of headache, loss of consciousness, chest pain, or palpitation at this time. PAST MEDICAL HISTORY: History of DJD, history of hypothyroidism, rest of the history and rest of the chart is also reviewed. HOME MEDICATIONS: Reviewed include Gas-X, dose and rest of medications reviewed. ALLERGIES: Include Amoxil, rest of allergies reviewed. FAMILY HISTORY: History of DVT, pulmonary embolism. SOCIAL HISTORY: No history of smoking. REVIEW OF SYSTEMS: A 14-point review is negative except as mentioned earlier. PHYSICAL EXAMINATION: VITAL SIGNS: Pulse is 93, blood pressure 130/78, respirations 18. HEENT: Conjunctivae normal. NECK: No jugular venous distention. CARDIOVASCULAR: S1, S2 muffled. RESPIRATIONS: Diminished at the bases, few scattered rhonchi. ABDOMEN: Soft, nontender. LEGS: No edema. NERVOUS SYSTEM: Nonfocal. LABORATORY DATA: Reviewed, hemoglobin 9.6. ASSESSMENT: 1. Status post L4-L5 decompression and fusion. 2. Fibromyalgia. 3. DJD. 4. Hypothyroidism. 5. Family history of DVT and PE. RECOMMENDATIONS AND DISCUSSION: This 63-year-old woman presented with multiple complex medical issues, will monitor the patient closely. Continue the current management and continue symptomatic treatment. DVT prophylaxis. Resume the home medications. Follow the patient closely with you and further recommendations to follow. See orders for details. MMODL / IJN: [id number] /
[2023-04-13] MEDS: FERROUS SULFATE 325 MG TAB PO SCH (16:23)
[2023-04-14] MEDS: LEVOTHYROXINE 88 MCG TAB PO SCH (06:47)
[2023-04-14] MEDS: FERROUS SULFATE 325 MG TAB PO SCH ×2 (06:47→17:32)
[2023-04-14] MEDS: LACTATED RINGERS 1,000 ML IV SCH (07:02)
[2023-04-14 07:19] LABS: Basophils % (A) 0 %; Eosinophils % (A) 0 %; HCT 26.8 % (34.0-46.0); HGB 8.9 gm/dL (11.4-16.0); Lymphocytes % (A) 13 %; MCH 31.1 pg (25.0-35.0); MCV 94.2 fL (80.0-100.0); Mean Platelet Volume 7.4; Monocytes # (A) 0.5 k/uL (0-1.0); Monocytes % (A) 7 %; Neutrophils # (A) 5.9 k/uL (1.3-7.7); Neutrophils % (A) 78 %; Platelet Count 190 k/uL (150-450); RBC 2.85 m/uL (3.80-5.40); RDW 13.1 % (11.5-15.5); WBC 7.5 k/uL (3.8-10.6)
[2023-04-14 07:56] LABS: African American GFR (CKD) >90 (>60 ml/min/1.73 sqM); Anion Gap 8 mmol/L; Blood Urea Nitrogen 7 mg/dL (7-17); Calcium 7.9 mg/dL (8.4-10.2); Carbon Dioxide 24 mmol/L (22-30); Chloride 101 mmol/L (98-107); Glucose 139 mg/dL (74-99); Non-African American GFR(CKD) >90 (>60 ml/min/1.73 sqM); Potassium 3.8 mmol/L (3.5-5.1); Sodium 133 mmol/L (137-145)
[2023-04-14] MEDS: SENNOSIDES-DOCUSATE SODIUM 1 EACH TAB PO SCH (08:48)
[2023-04-14] MEDS: ENOXAPARIN 40 MG/0.4 ML SYRINGE SQ SCH (08:48)
[2023-04-14] MEDS: GABAPENTIN 300 MG CAP PO SCH ×2 (08:48→20:35)
[2023-04-14] MEDS: 0.9% NACL WITH KCL 20 MEQ/L 1,000 ML IV SCH (08:51)
[2023-04-14] MEDS: HYDROcodone/APAP 10-325MG 1 EACH TAB PO PRN ×2 (08:52→17:40)
--- NOTE | 2023-04-14 11:24 | P.PN ---
Subjective Progress Note Date: 04/14/23 Principal diagnosis: Status post [id number] decompression and fusion Patient was evaluated today at bedside, she is resting in her hospital chair. Patient has been up and ambulating little bit with use of the walker and physical therapy. Patient's still has not brought also a brace at this time. Patient's heart rate was noted to be elevated throughout the morning, r echeck at bedside while was in the room did show decrease into the low to mid 90s. Patient's hemoglobin did decrease overnight. Patient currently denies any lightheadedness, chest pain or shortness of breath. She denies any numbness or tingling to the genital or perineal region. Objective - Vital Signs Vital signs: Vital Signs Temp 99.5 F 04/14/23 07:24 Pulse 93 04/14/23 11:13 Resp 21 04/14/23 07:24 BP 115/70 04/14/23 07:24 Pulse Ox 92 L 04/14/23 07:24 FiO2 Intake & Output 04/13/23 04/14/23 04/14/23 18:59 06:59 18:59 Intake Total 768 236 Output Total 1810 430 Balance -1042 -430 236 Intake: Intake, IV Titration 650 Amount 0.9% NaCl with KCl 20 Meq 600 /l 1,000 ml @ 50 mls/hr IV .Q20H GRETA Rx#: [id number] ceFAZolin 2 gm In Sodium 50 Chloride 0.9% 50 ml @ 100 mls/hr IVPB Q8HR GRETA Rx# :[id number] Oral 118 236 Output: Drainage 510 180 Back 510 180 Urine 1300 250 Uretheral (Jacobsen) 900 Other: Voiding Method Indwelling Catheter # Voids 2 - Exam Gen: AOx3, NAD VSS stable at this time Integument: Dressing is in good position and condition, no active drainage. Drain is in good position and condition, I did adjust the drain to gravity, output decreasing Palpation: Tenderness with palpation to the midline and paraspinal region of the lower lumbar spine ROM: Full range of motion in all major muscle groups of the bilateral upper and lower extremities, no focal deficits appreciated Sensory Exam: Senory exam to light touch is intact C5-T1 Senosry exam to light touch is intact L2-S1 Motor: 55 strength patient the bilateral upper extremities with shoulder elevation, shoulder abduction, elbow extension, elbow flexion, wrist extension, wrist flexion, speech and language tutor 4+/5 strength in the bilateral lower extremities with hip flexion, knee extension, knee flexion, plantar flexion, dorsiflexion, EHL, FHL Reflexes: 2/4 in all UE and LE Negative Pablo's bilaterally, negative clonus bilaterally, negative Babinski bilaterally - Labs CBC & Chem 7: 04/14/23 05:50 04/14/23 05:50 Labs: Abnormal Lab Results - Last 24 Hours (Table) 04/14/23 04/14/23 Range/Units 05:50 05:50 RBC 2.85 L (3.80-5.40) m/uL Hgb 8.9 L (11.4-16.0) gm/dL Hct 26.8 L (34.0-46.0) % Sodium 133 L (137-145) mmol/L Glucose 139 H (74-99) mg/dL Calcium 7.9 L (8.4-10.2) mg/dL Assessment and Plan Assessment: Postoperative day #2 status post [id number] decompression and fusion Acute blood loss anemia, expected surgical Tachycardia Other medical comorbidities Plan: Pain control, continue oral medications and IV pain medication as needed. Multiple stool softeners have been ordered, please utilize these daily to help prevent constipation DVT prophylaxis, SCDs and XIOMY hose at this time, subcu medications also been utilizing Wound care, continue monitor surgical dressing and drain, did adjust drainage gravity with no compression. 4 04/15/2023 Continue with PT/OT, recommend weight-bear as tolerated with a walker. LSO brace to be worn when up and ambulating. No bending, twisting or lifting at this time Continue to monitor CBC, consider transfusion of 1 unit of packed RBCs hemoglobin continues to decrease Encourage incentive spirometer Medical recommendations Discharge planning: Due to patient's output on drain, recent tachycardia and monitoring of her hemoglobin, would like to keep patient in the hospital at this time under inpatient status. Hopeful removal of drain on 04/15/2023 pending output Time with Patient: Less than 30
[2023-04-14] MEDS: CALCIUM CARB-VIT D 500 MG-5 MCG TAB PO SCH ×2 (11:34→17:32)
--- NOTE | 2023-04-14 13:50 | PN ---
PROGRESS NOTE DATE OF SERVICE: 04/14/2023 SUBJECTIVE: This is 63-year-old woman was admitted after back surgery, is improving significantly. No chest pain, no palpitations. No fever. OBJECTIVE: VITAL SIGNS: Pulse is 106, blood pressure 128/70, respirations 19. HEENT: Conjunctivae normal. NECK: No jugular venous distention. CARDIOVASCULAR: S1, S2 muffled. ABDOMEN: Soft. NERVOUS SYSTEM: No focal deficits. LABORATORY DATA: Reviewed. ASSESSMENT: 1. Status post L4-L5 decompression and fusion. 2. Fibromyalgia. 3. Degenerative joint disease. 4. Hypothyroidism. 5. Family history of DVT and PE. RECOMMENDATIONS AND DISCUSSION: Recommended to continue current medications, continue symptomatic treatment. Continue with DVT prophylaxis. I would also recommend [place] also to continue and to follow with primary physician. MMODL / IJN: [id number] /
[2023-04-15] MEDS: HYDROcodone/APAP 10-325MG 1 EACH TAB PO PRN ×3 (02:41→21:40)
[2023-04-15] MEDS: FERROUS SULFATE 325 MG TAB PO SCH ×2 (05:47→15:25)
[2023-04-15] MEDS: CALCIUM CARB-VIT D 500 MG-5 MCG TAB PO SCH ×2 (05:47→15:25)
[2023-04-15] MEDS: LEVOTHYROXINE 88 MCG TAB PO SCH (05:47)
[2023-04-15 07:54] LABS: Basophils % (A) 0 %; Eosinophils % (A) 0 %; HGB 8.8 gm/dL (11.4-16.0); Lymphocytes # (A) 1.2 k/uL (1.0-4.8); Lymphocytes % (A) 12 %; MCH 30.5 pg (25.0-35.0); MCHC 32.5 g/dL (31.0-37.0); MCV 93.9 fL (80.0-100.0); Mean Platelet Volume 7.5; Monocytes # (A) 0.5 k/uL (0-1.0); Monocytes % (A) 5 %; Neutrophils % (A) 81 %; Platelet Count 222 k/uL (150-450); RBC 2.87 m/uL (3.80-5.40); RDW 13.5 % (11.5-15.5); WBC 9.9 k/uL (3.8-10.6)
[2023-04-15 08:07] LABS: ALT 16 U/L (4-34); AST 32 U/L (14-36); African American GFR (CKD) >90 (>60 ml/min/1.73 sqM); Albumin 2.9 g/dL (3.5-5.0); Albumin/Globulin Ratio 1.2; Alkaline Phosphatase 67 U/L (38-126); Anion Gap 9 mmol/L; Blood Urea Nitrogen 7 mg/dL (7-17); Calcium 7.8 mg/dL (8.4-10.2); Carbon Dioxide 24 mmol/L (22-30); Chloride 101 mmol/L (98-107); Globulin 2.4 g/dL; Glucose 154 mg/dL (74-99); Non-African American GFR(CKD) >90 (>60 ml/min/1.73 sqM); Potassium 3.9 mmol/L (3.5-5.1); Sodium 134 mmol/L (137-145); Total Bilirubin 0.5 mg/dL (0.2-1.3); Total Protein 5.3 g/dL (6.3-8.2)
--- NOTE | 2023-04-15 08:24 | P.OP ---
Date of Procedure: 04/12/23 Preoperative Diagnosis: 1. L5-S1 grade II spondylolisthesis with spondylolysis 2. L4-S1 spondylosis 3. LE weakness with radiculopathy and paresthesias 4. Low back pain Postoperative Diagnosis: 1. L5-S1 grade II spondylolisthesis with spondylolysis 2. L4-S1 spondylosis 3. LE weakness with radiculopathy and paresthesias 4. Low back pain Procedure(s) Performed: 1. L5-S1 intradiscal osteotomy for deformity correction, 3 column (20743) 2. L4-5, L5-S1 posteriolateral and interbody fusion (86858, 90684) 3. L4-Pelvis instrumentation (67799) 4. Attachment of caudal end of construct to pelvis (63221) 5. L4-5, L5-S1 bilateral laminectomy, complete facetectomy and foraminotomy for decompression of neural elements, deformity correction and cage placement (44790, 87231. 76441 describes actual procedure better but is not allowed with new code structure) 6. Insertion of biomechanical devices L4-S1 (48970o7) 7. Use of [employer] navigation for screw placement (30215) use of IONM Implants: -Globus Creo Screw/santiago -MIrabus cages x2 -MagnatOs, Arthocell, iFactor, DBM fibers, Autograft Anesthesia: GETA Surgeon: Rick Kirkland Certified Surgical Tech/First Assistant #1: Juan Oakes Estimated Blood Loss (ml): 350 IV fluids (ml): 1,500 Urine output (ml): 260 Pathology: none sent Condition: stable Disposition: PACU Indications for Procedure: Ms. Joseph is presenting for evaluation of Lumbar pain. It was my pleasure to have seen and examined Ms. Joseph. In addition to their lumbar pain, they do report that it radiates into the left lower extremity, associatedwith numbness and tingling through the L4-L5 dermatomal distribution. Overall the patient has seen a progressive increase in symptoms since their onset. Ms. Joseph symptoms are exacerbated with prolonged standing and ambulation, due to this they notes that it is increasingly difficult for Ms. Joseph to complete many of their daily tasks. Patient is having severe sleep disturbances as well due to their ongoing pain and associated symptoms. In our visit today we have had a chance to go over subjective complaints, physical examination findings and treatments including the natural course history without intervention and various interventional options. The patients imaging demonstrates: XRay (multiview) taken on 08/09/22 of Lumbar Spine and Pelvis: Images reviewed these demonstrate multilevel spondylotic changes from L3 through S1. There is a grade 2 spondylolisthesis of L5-S1 which on standing films measures about 9 mm and accentuates to 13.8 mm on flexion films. There is retrolisthesis of L4 5 and L3 4 which is also noted. There is likely pars defects at L5 bilaterally with pars elongation facet arthrosis at these levels as well. There is a high slip angle at S1 along with high pelvic incidence around 72 with the lumbar lordosis around 48. No acute fractures are noted. No lesions noted. AP pelvis demonstrates congruent level pelvis fracture MRI scan from 07/27/2022 of Lumbar Spine: images are reviewed with the patient these again demonstrated the grade 2 spondylolisthesis of L5-S1 which is partially reduced on the supine film. There are likely pars defects bilaterally however these are chronic with pars elongation. There is severe facet arthrosis noted from L3 through S1. There is retrolisthesis L3 on L4 as well as L4-L5. There is disc desiccation L3 through S1. There is disc height loss L3 4 and L5-S1. There is severe bilateral foraminal stenosis at L5. No acute fractures noted. No lesions. On physical exam, Ms. Joseph demonstrates:Severe low back pain, LE pain and weakness. Paresthesias in the L4-S1 distribution in both legs. Difficulty with ADLs secondary to the pain and weakness as well as buttock pain, neurogenic claudicant like sx with inability to walk long distances which gets better with bending forward or resting along with numbness/tingling in her LE. No bowel or bladder issues currently. I have explained to the patient that as their condition progresses it will cause further neurological deficits and eventual paralysis. Based on the patients imaging, physical exam, and the rapid progression and disabling nature of their symptoms, at this time I recommend surgery in the form of a: lumbar (L4-S1) Posterior lumbar interbody fusion. I discussed the risk and benefits of this procedure at length with Ms. Joseph. The patient agreed to considered pursuing the procedure above mentioned. Prior to surgery, she should follow up with her PCP (Cardio, ID, IM etc) for clearance. Questions were invited and answered, and the patient wishes to proceed as outlined below. Currently, I am recommendin. L4-S1 posterior lumbar interbody fusion Description of Procedure: L4-P open Decompression and fusion (dennis) The patient was seen and examined in the preoperative area.All preoperative protocols were followed.Informed consent was obtained, risks and benefits of the procedure were discussed at length.Risks including bleeding infection damage to the surrounding tissue and risk of re-operation were discussed with the patient.Risk of anesthesia up to and including was discussed with the patient.These are outlined in the risk review.They were willing to accept these risks and all the risks of surgery.The patient was given a weight-based dose of antibiotics in the form of 2 g Ancef.The patient was seen and evaluated by the anesthesia team who deemed them fit for surgery. The site was marked, the patient was willing to proceed with the procedure. The patient was transferred to the operative suite by the Department of anesthesia. They were then drifted off to sleep by the department anesthesia and GETA was performed. The patient tolerated this well. Jacobsen catheter was placed by nursing staff, a-traumatically. Once confirmation of lines and ventilation the patient was transferred to a prone [place] table very carefully. All bony prominences including wrists, elbows, axilla, chest, hips, and thighs, and feet were padded very well. Special attention was paid to the genitalia, and these were padded accordingly. SCDs were placed on bilateral lower extremities and were connected. Arms were well padded and placed on arm boards up and out in the 90/90 position. Once in position, again we confirmed good ventilation capabilities and that lines were running appropriately. The patients Lumbar spine was then exposed. 1010s were placed outlining the incision site. Standard alcohol was used to clean the incision site and allowed to dry. C-arm was used to needle localize the pedicles at L4-S1 and bio-katja the patient and confirm level for incision which was marked with a skin marker. Operative briefing was performed with all teams and everyone in agreement to proceed. The patient was then prepped and draped in a normal sterile fashion. Timeout was then performed, and all parties agreed with the procedure to be performed. Midline skin incision was made over the previously bio-marked area and dissection taken down over the SP of L3-S1. Pelvic starting points were exposed lateral to S2 pseudofacet as well. L4-S1 was taken out over facet joints and TPs and a penfield 4 used to katja the L4 pedicle. Lateral image used to confirm levels. Once confirmed, screws were proceeded to be placed b/l at pedicles from L4-S1 using [employer] Navigation. An SP clamp was used, 3D C arm spin obtained and confirmed to be accurate. Once this was confirmed screws were placed using a navigated giselle, navigated awl-tap and navigated delivery truck driver heavy. Once screws were placed they were confirmed to be in good position using AP and Lateral fluoroscopy. Due to bone quality it was elected to extend the caudal segment to the pelvis for extra fixation. Then under lateral flouroscopy and 30/30 deg oblique films, pelvic screws were placed bilaterally in a similar fashion and confirmed to be in good position. The wound was then irrigated. Screws were tested and all tested above 20 mA. We then proceeded to decompression and cage placement. Attention was then turned to inter-body fusion at L5-S1. Intradiscal osteotomy was performed as well as Bilateral laminectomy, complete facetectomy and foraminotomy performed at L5-S1 using high speed giselle and Kerrison rongure for deformity correction and to allow for reduction of elements. L5 was decompressed all the way to the sacral ala to prevent tensioning. The ligamentum was removed and dural sac decompressed. Exiting and traversing roots visualized and decompressed. Neural elements were then protected, and disc space accessed and osteotomy done. Sequential shaving then done under lateral imaging and complete discectomy performed using kari, pituitary and curette. Once good bleeding endplates accomplished and good height jehovah's witness with trials, a combination of autograft, allograft and synthetic placed anterior in the disc space. The cage was then selected and impacted into place under lateral imaging. The cage was then expanded restoring height, lordosis and alignment. The cage was backfilled with bone graft through a funnel. The cardiovascular specialist removed and the area inspected. Good cage placement, stable cage and no injuries. Area was irrigated copiously, and meticulous hemostasis achieved. The tubular retractor was then removed under direct visualization. Attention was then turned to inter-body fusion at L4-5. Bilateral laminectomy, complete facetectomy and foraminotomy performed at L4-5 using high speed giselle and Kerrison rongure. The ligamentum was removed and dural sac decompressed. Exiting and traversing roots visualized and decompressed. Neural elements were then protected, and disc space accessed with an osteotome. Sequential shaving then done under lateral imaging and complete discectomy performed using kari, pituitary and curette. Once good bleeding endplates accomplished and good height jehovah's witness with trials, a combination of autograft, allograft and synthetic placed anterior in the disc space. The cage was then selected and impacted into place under lateral imaging. The cage was then expanded restoring height, lordosis and alignment. The cage was backfilled with bone graft through a funnel. The cardiovascular specialist removed and area inspected. Good cage placement, stable cage and no injuries. Area was irrigated copiously, and meticulous hemostasis achieved. The wound and disc spaces irrigated and meticulous hemostasis achieved. Rods were then sized and selected and placed into Pelvic screws b/l. Set screws locked these in place and then sequentially reduced into S1, L5 and L4l for alignment jehovah's witness. This was accomplished. Set screws were then all placed and final tightened. A cross link was selected and placed and final tightened. TPs were then decorticated with high speed giselle. The wound was the irrigated with 3L Ancef irrigation, 3L gentamicin irrigation and 3L NSS. Surgical was placed over the dura. Autograft and MagnatOs then placed in the posteriolateral gutters and impacted into place. Deep drain placed and secured to the skin. Final images confirmed good placement of hardware and good reduction of listhesis as well as jehovah's witness of height and lordosis. Deep drain was placed. Vancomycin 2 g placed in the wound. Meticulous hemostasis done. Facia was then closed with #1 PDS. Deep subq closed with 0 Vicryl. Superficial subq closed with 2-0 Vicryl and skin with ophelia. Wound edges approximated very well. Wound was then cleaned with alcohol and dried. Wounds dressed with Optifoam dressings. The patient was then transferred off the table back to their hospital bed a- traumatically.Drain continued to hold suction.They were extubated by the department of anesthesia.They were then transferred to PACU in stable condition having tolerated the procedure with no complications.
--- NOTE | 2023-04-15 08:24 | P.PN ---
Subjective Progress Note Date: 04/15/23 Principal diagnosis: Status post [id number] decompression and fusion Patient was evaluated today at bedside, she is resting in her hospital chair. Patient also brace was delivered yesterday by family. Patient states that she's feeling pretty well at this point. She notices most discomfort when she initiates movement. Patient's heart rate was noted to Be elevated today, I did discuss this with nursing, and EKG will be ordered. She was also noted to be running a low-grade temperature. I discussed with her again the importance of utilizing the incentive spirometer. Patient currently denies any lightheadedness, chest pain or shortness of breath. She denies any numbness or tingling to the genital or perineal region. Objective - Vital Signs Vital signs: Vital Signs Temp 98.7 F 04/15/23 06:00 Pulse 112 H 04/15/23 02:00 Resp 17 04/14/23 20:00 BP 157/76 04/15/23 02:00 Pulse Ox 90 L 04/15/23 02:00 FiO2 Intake & Output 04/14/23 04/15/23 04/15/23 18:59 06:59 18:59 Intake Total 236 Output Total 40 20 Balance 196 -20 Intake: Oral 236 Output: Drainage 40 20 Back 40 20 Other: # Voids 2 3 - Exam Gen: AOx3, NAD VSS stable at this time Integument: Postoperative dressing was removed today, the Hemovac drain was also removed. Fleming are all in good position and condition. Skin was cleaned with chlorhexidine swab. A new silver dressing was applied along with a bandage over the drain hole. Palpation: Tenderness with palpation to the midline and paraspinal region of the lower lum bar spine ROM: Full range of motion in all major muscle groups of the bilateral upper and lower extremities, no focal deficits appreciated Sensory Exam: Senory exam to light touch is intact C5-T1 Senosry exam to light touch is intact L2-S1 Motor: 55 strength patient the bilateral upper extremities with shoulder elevation, shoulder abduction, elbow extension, elbow flexion, wrist extension, wrist flexion, real estate leasing manager 4+/5 strength in the bilateral lower extremities with hip flexion, knee extension, knee flexion, plantar flexion, dorsiflexion, EHL, FHL Reflexes: 2/4 in all UE and LE Negative Pablo's bilaterally, negative clonus bilaterally, negative Babinski bilaterally - Labs CBC & Chem 7: 04/15/23 07:09 04/15/23 07:09 Labs: Abnormal Lab Results - Last 24 Hours (Table) 04/15/23 04/15/23 Range/Units 07:09 07:09 RBC 2.87 L (3.80-5.40) m/uL Hgb 8.8 L (11.4-16.0) gm/dL Hct 27.0 L (34.0-46.0) % Neutrophils # 8.0 H (1.3-7.7) k/uL Sodium 134 L (137-145) mmol/L Glucose 154 H (74-99) mg/dL Calcium 7.8 L (8.4-10.2) mg/dL Total Protein 5.3 L (6.3-8.2) g/dL Albumin 2.9 L (3.5-5.0) g/dL Assessment and Plan Assessment: Postoperative day #3 status post [id number] decompression and fusion Acute blood loss anemia, expected surgical Tachycardia Other medical comorbidities Plan: Pain control, continue oral medications and IV pain medication as needed. Multiple stool softeners have been ordered, please utilize these daily to help prevent constipation DVT prophylaxis, SCDs and XIOMY hose at this time, subcu medications also been utilizing Wound care, monitor surgical dressing Await EKG results CBC reveals stable hemoglobin at this time, continue ferrous sulfate Continue with PT/OT, recommend weight-bear as tolerated with a walker. LSO brace to be worn when up and ambulating. No bending, twisting or lifting at this time Encourage incentive spirometer Medical recommendations Discharge planning: Pending EKG results and outpatient progresses over the next 68 hours, possible discharge to home today versus 04/16/2023 Time with Patient: Less than 30
[2023-04-15] MEDS: 0.9% NACL WITH KCL 20 MEQ/L 1,000 ML IV SCH ×2 (08:48→10:23)
[2023-04-15] MEDS: LACTATED RINGERS 1,000 ML IV SCH ×2 (08:48→23:35)
[2023-04-15] MEDS: LORATADINE-PSEUDOEPH 5-120 MG 1 EACH TAB.ER.12H PO SCH (08:50)
[2023-04-15] MEDS: GABAPENTIN 300 MG CAP PO SCH ×2 (08:50→21:41)
[2023-04-15] MEDS: SENNOSIDES-DOCUSATE SODIUM 1 EACH TAB PO SCH (08:50)
[2023-04-15] MEDS: ENOXAPARIN 40 MG/0.4 ML SYRINGE SQ SCH (08:51)
[2023-04-15] MEDS: CYCLOBENZAPRINE 5 MG TAB PO PRN ×2 (13:14→21:41)
--- NOTE | 2023-04-15 16:50 | P.PN ---
Subjective Progress Note Date: 04/15/23 63-year-old female patient with history of hypothyroidism, underwent L4-L5 decompression and fusion - Patient is POD #1 Orthopedic surgery on board with plans for possible discharge once clinically stable Objective - Vital Signs Vital signs: Vital Signs Temp 100.3 F H 04/15/23 07:10 Pulse 122 H 04/15/23 07:10 Resp 18 04/15/23 07:10 BP 112/74 04/15/23 07:10 Pulse Ox 92 L 04/15/23 07:10 FiO2 Intake & Output 04/14/23 04/15/23 04/15/23 18:59 06:59 18:59 Intake Total 236 Output Total 40 20 Balance 196 -20 Intake: Oral 236 Output: Drainage 40 20 Back 40 20 Other: # Voids 2 3 - Exam PHYSICAL EXAMINATION: GENERAL: The patient is alert and oriented x3, not in any acute distress. Well developed, well nourished. HEENT: Pupils are round and equally reacting to light. EOMI. No scleral icterus. No conjunctival pallor. Normocephalic, atraumatic. No pharyngeal erythema. No thyromegaly. CARDIOVASCULAR: S1 and S2 present. No murmurs, rubs, or gallops. PULMONARY: Chest is clear to auscultation, no wheezing or crackles. ABDOMEN: Soft, nontender, nondistended, normoactive bowel sounds. No palpable organomegaly. MUSCULOSKELETAL: No joint swelling or deformity. EXTREMITIES: No cyanosis, clubbing, or pedal edema. NEUROLOGICAL: Gross neurological examination did not reveal any focal deficits. SKIN: No rashes. - Labs CBC & Chem 7: 04/15/23 07:09 04/15/23 07:09 Labs: Abnormal Lab Results - Last 24 Hours (Table) 04/15/23 04/15/23 Range/Units 07: 07:09 RBC 2.87 L (3.80-5.40) m/uL Hgb 8.8 L (11.4-16.0) gm/dL Hct 27.0 L (34.0-46.0) % Neutrophils # 8.0 H (1.3-7.7) k/uL Sodium 134 L (137-145) mmol/L Glucose 154 H (74-99) mg/dL Calcium 7.8 L (8.4-10.2) mg/dL Total Protein 5.3 L (6.3-8.2) g/dL Albumin 2.9 L (3.5-5.0) g/dL Assessment and Plan Assessment: 1. Status post L4-L5 decompression and fusion 2. Hypothyroidism 3. Fibromyalgia 4. History of DJD 5. Family history of DVT/PE -- Patient remains stable on current medications; we will continue to monitor closely - Orthopedic surgery managing pain control - Patient is recommended incentive spirometry and increase activity as tolerated DVT prophylaxis; SCDs/subcu Lovenox CODE STATUS; full code
[2023-04-16] MEDS: CALCIUM CARB-VIT D 500 MG-5 MCG TAB PO SCH ×2 (06:33→15:49)
[2023-04-16] MEDS: LEVOTHYROXINE 88 MCG TAB PO SCH (06:33)
[2023-04-16] MEDS: SENNOSIDES-DOCUSATE SODIUM 1 EACH TAB PO SCH (08:09)
[2023-04-16] MEDS: ENOXAPARIN 40 MG/0.4 ML SYRINGE SQ SCH (08:09)
[2023-04-16] MEDS: FERROUS SULFATE 325 MG TAB PO SCH ×2 (08:09→15:49)
[2023-04-16] MEDS: GABAPENTIN 300 MG CAP PO SCH ×2 (08:09→22:22)
[2023-04-16] MEDS: HYDROcodone/APAP 10-325MG 1 EACH TAB PO PRN (08:41)
--- NOTE | 2023-04-16 11:28 | P.PN ---
Subjective Progress Note Date: 04/16/23 Patient seen and examined she is doing well she is sitting up in chair she is eating she is drinking she has a fever chills shortness breath or chest pain. She states that her heart rate is been high but she has not noticed it. She has a peroneal numbness or tingling. She denies any weakness. Objective - Vital Signs Vital signs: Vital Signs Temp 99.2 F 04/16/23 09:15 Pulse 120 H 04/16/23 09:15 Resp 18 04/16/23 07:09 BP 99/65 04/16/23 09:15 Pulse Ox 97 04/16/23 09:15 FiO2 Intake & Output 04/15/23 04/16/23 04/16/23 18:59 06:59 18:59 Intake Total 550 Output Total 0 Balance 550 0 Intake: Oral 550 Output: Drainage 0 Back 0 Other: Voiding Method Toilet # Voids 3 4 - Exam Physical Exam: -Patient is alert and oriented 3 appears well-nourished well-hydrated is in no acute distress. They do not appear septic. -There is TTP around the incision [-Incision is CDI, no EEE, no drainage] -Upper extremities show [5] out of 5 strength in all major muscle groups -Lower extremities with 4+ out of 5 strength in all major muscle groups normal deconditioning -There is [FROM] that is [painless] of the b/l UE and LE in all major joints. -They are intact to light touch sensation in C5 to T1 and L2 to S1 nerve distribution. -DTR [2]/4 all upper and lower extremities -Patient has palpable distal pulses all 4 ext -Compartments are soft and compressible. -Patient shows a negative Gabi's [-Neg Hoffmans b/l] [-Neg Clonus b/l] [-Neg babinski b/l] Cranial nerves II through XII are grossly intact. - Labs CBC & Chem 7: 04/15/23 07:09 04/15/23 07:09 Assessment and Plan Assessment: postop day 4 L4 to pelvis decompression fusion Supraventricular tachycardia with PVCs cardiology following Plan: -Appreciate sap business intelligence consultant and team management. -Cardio recommendations -Activity: Ambulate QID, OOB all meals, up and about, limit lifting bending twisting to less than 5 lbs. Use walker or cane if needed for stability. -Daily PT/OT, increase ambulation strength and balance. -LSO brace when up and about -Pain control: [Adequate at this time] -Meds: [reviewed] -GI ppx: senna, Miralax -DVT PPX: Chemoprophylaxis with teds and SCDs -Hygiene: Shower today. Maintain dressing clean and dry. Meticulous cleaning after BMs away from incision site -Encourage IS 10x/hr -Dispo: Home today versus tomorrow pending cardiology recommendations
--- NOTE | 2023-04-16 16:36 | P.CRDCN ---
History of Present Illness History of present illness: HISTORY OF PRESENTING ILLNESS Patient is a pleasant 63-year-old female with history of L4 spinal decompression and fusion, postop day 4 and anemia. Patient was a value by Dr. Zuñiga for preop erative clearance and reportedly normal stress test with mild to moderate regurgitation and no other significant findings and was cleared for surgery. She did well with surgery however has had intermittent episodes of feeling shaky. There is no actual correlation however with any arrhythmia to her shaking. She was however noted to have occasional episodes of tachycardia with heart rates up in the 140s. Telemetry reveals long RP tachycardia, SVT which is regular. She had 2 episodes each of was lasted for approximately 20-30 minutes. These were broken with a PVC. She also has been having occasional PVCs. She denies any lightheadedness or dizziness and no change in chronic dyspnea. EKG showing normal sinus rhythm normal axis, no significant ST or T-wave abnormalities. Denies any chest pain or pressure. REVIEW OF SYSTEMS At the time of my exam: CONSTITUTIONAL: Denies fever or chills. CARDIOVASCULAR: Denies chest pain, +chronic shortness of breath, no orthopnea, PND or palpitations. RESPIRATORY: Denies cough. GASTROINTESTINAL: Denies abdominal pain, diarrhea, constipation, nausea or vomiting. MUSCULOSKELETAL: Denies myalgias. NEUROLOGIC: Denies numbness, tingling or weakness. ENDOCRINE: Denies fatigue, weight change, polydipsia or polyurina. GENITOURINARY: Denies burning, hematuria or urgency with micturation. HEMATOLOGIC: Denies history of anemia or bleeding. PHYSICAL EXAMINATION Vital signs reviewed. CONSTITUTIONAL: No apparent distress. HEENT: Head is normocephalic. Pupils are equal, round. Sclerae anicteric. Mucous membranes of the mouth are moist. No JVD. No carotid bruit. CHEST EXAMINATION: Lungs are clear to auscultation. No chest wall tenderness is noted on palpation or with deep breathing. HEART EXAMINATION: Regular rate and rhythm. S1, S2 heard. No murmurs, gallops or rub. ABDOMEN: Soft, nontender. Positive bowel sounds. EXTREMITIES: 2+ peripheral pulses, no lower extremity edema and no calf tenderness. NEUROLOGIC EXAMINATION: Patient is awake, alert and oriented x3. ASSESSMENT 1. Post op lumbar decompression/ fusion 2. SVT 3. "Shaking" episodes, not correlating with SVT 4. Borderline BP 5. Anemia 6. Chronic dyspnea PLAN Patient had undergone previous preoperative workup and she is having intermittent episodes of SVT. Predominantly she is asymptomatic with heart rates in the 140s. Possibly add Cardizem however blood pressure is borderline and therefore continue to monitor given she is relatively asymptomatic from this. Long-term, if patient is symptomatic may consider ablation. No significant atrial fibrillation or atrial flutter noted and appears consistent with SVT with resolution after PVC. Continue to monitor, further recs to follow. Past Medical History Past Medical History: Fibromyalgia, GERD/Reflux, Osteoarthritis (OA), Thyroid Disorder Additional Past Medical History / Comment(s): Hypoglycemia, occ migraines, Shyla's, hx palipitations, chronic pain syndrome, hx anemia, HX HO'S PALSY R/T COVID VACCINE, "DR WATCHING A LEAKY VALVE ", ANEMIA History of Any Multi-Drug Resistant Organisms: None Reported Past Surgical History: Breast Surgery, Joint Replacement, Tubal Ligation Additional Past Surgical History / Comment(s): RIGHT TOTAL KNEE , LEFT KNEE, UMB ILICAL HERNIA REPAIR, CYST REMOVED FROM RT BREAST, COLONOSCOPY, LEFT KNEE MENISECTOMY - ARTHROSCOPIC Past Anesthesia/Blood Transfusion Reactions: Motion Sickness Past Psychological History: No Psychological Hx Reported Smoking Status: Never smoker Past Alcohol Use History: Occasional Past Drug Use History: Marijuana Additional Drug Use History / Comment(s): EDIBLE MARIJUANA AT HS FOR SLEEP/ INSTRUCTED TO HOLD 24 HOURS PRIOR - Past Family History Mother Family Medical History: Deep Vein Thrombosis (DVT), Pulmonary Embolus Father Family Medical History: Cancer Medications and Allergies Home Medications Medication Instructions Recorded Confirmed Type Meloxicam [Mobic] 15 mg PO HS 03/08/21 04/12/23 History Levothyroxine Sodium [Euthyrox] 88 mcg PO DAILY 03/16/22 04/12/23 History Acetaminophen Tab [Tylenol Tab] 1,000 mg PO Q6HR PRN #30 tablet 03/18/22 04/12/23 Rx Loratadine-Pseudoeph 10-240 mg 1 tab PO Q48H 04/08/23 04/12/23 History [Claritin-D 24 Hour] Simethicone [Gas-X] 125 mg PO AC-TID PRN 04/08/23 04/12/23 History Allergies Allergy/AdvReac Type Severity Reaction Status Date / Time amoxicillin AdvReac Rash/Hives Verified 04/12/23 09:36 tramadol AdvReac Confusion Verified 04/12/23 09:36 COVID VACCINE Allergy HO'S Uncoded 04/12/23 09:36 PALSY Physical Exam Vitals: Vital Signs Temp Pulse Resp BP Pulse Ox 04/16/23 14:19 99.9 F H 133 H 18 94/62 91 L 04/16/23 09:15 99.2 F 120 H 99/65 97 04/16/23 07:09 100.2 F H 150 H 18 96/63 93 L 04/16/23 01:43 98.7 F 89 17 104/66 95 04/15/23 20:00 19 04/15/23 18:49 98.4 F 95 22 113/70 96 Intake and Output 04/16/23 04/16/23 04/16/23 06:59 14:59 22:59 Intake Total 350 Balance 350 Intake: Oral 350 Other: # Voids 4 Results 04/15/23 07:09 04/15/23 07:09 Current Medications Generic Name Dose Route Start Last Admin Trade Name Freq PRN Reason Stop Dose Admin Hydrocodone Bitart/Acetaminophen 1 each 04/12/23 16:41 Hydrocodone/Apap 5-325mg 1 Each Tab PO 05/12/23 16:42 Q6HR PRN Pain Scale 4 - 6 Hydrocodone Bitart/Acetaminophen 1 each 04/12/23 16:41 04/16/23 08:41 Hydrocodone/Apap 10-325mg 1 Each Tab PO 05/12/23 16:42 1 each Q6H PRN Administration Pain Scale 9 To 10 Hydrocodone Bitart/Acetaminophen 1 each 04/12/23 16:44 Hydrocodone/Apap 7.5-325mg 1 Each Tab PO Q6HR PRN Pain Scale 7 to 8 Bisacodyl 10 mg 04/12/23 16:41 Bisacodyl 10 Mg Supp RECTAL DAILY PRN Constipation Calcium Carbonate 1 each 04/14/23 11:15 04/16/23 15:49 Calcium Carb-Vit D 500 Mg-5 Mcg Tab PO 1 each BID-W/MEALS GRETA Administration Cyclobenzaprine HCl 5 mg 04/12/23 16:41 04/15/23 21:41 Cyclobenzaprine 5 Mg Tab PO 5 mg TID PRN Administration Muscle Spasm Enoxaparin Sodium 40 mg 04/13/23 12:00 04/16/23 08:09 Enoxaparin 40 Mg/0.4 Ml Syringe SQ 40 mg DAILY GRETA Administration Ferrous Sulfate 325 mg 04/13/23 17:30 04/16/23 15:49 Ferrous Sulfate 325 Mg Tab PO 325 mg BID-W/MEALS GRETA Administration Gabapentin 300 mg 04/12/23 21:00 04/16/23 08:09 Gabapentin 300 Mg Cap PO 300 mg BID GRETA Administration Hydromorphone HCl 0.5 mg 04/12/23 16:41 Hydromorphone 0.5 Mg/0.5 Ml Syringe IVP Q3HR PRN Pain Scale 4 - 6 Hydromorphone HCl 1 mg 04/12/23 16:41 04/13/23 02:26 Hydromorphone 1 Mg/Ml 1 Ml Syringe IVP 1 mg Q3HR PRN Administration Pain Scale of 7 - 10 Cefazolin Sodium 2 gm/ Sodium 50 mls @ 100 mls/hr 04/13/23 00:00 04/16/23 15:49 Chloride IVPB 100 mls/hr Q8HR GRETA Administration Protocol Levothyroxine Sodium 88 mcg 04/13/23 09:00 04/16/23 06:33 Levothyroxine 88 Mcg Tab PO 88 mcg DAILY@0630 [facility] Administration Loratadine/Pseudoephedrine Sulfate 2 each 04/13/23 09:00 04/15/23 08:50 Loratadine-Pseudoeph 5-120 Mg 1 Each Tab.Er.12h PO 2 each Q48H GRETA Administration Magnesium Hydroxide 2,400 mg 04/12/23 16:41 Magnesium Hydroxide 2,400 Mg/10 Ml Cup PO DAILY PRN Constipation Ondansetron HCl 4 mg 04/12/23 16:41 Ondansetron 4 Mg/2 Ml Vial IVP Q8HR PRN Nausea And Vomiting Senna/Docusate Sodium 2 each 04/13/23 09:00 04/16/23 08:09 Sennosides-Docusate Sodium 1 Each Tab PO 2 each DAILY GRETA Administration Simethicone 120 mg 04/13/23 08:38 Simethicone 80 Mg Chewable PO AC-TID PRN ABD PAIN, GAS Sodium Biphosphate/Sodium Phosphate 133 ml 04/12/23 16:41 Na Phos,M-B/Na Phos,Di-Ba 133 Ml Enema RECTAL DAILY PRN Constipation Intake and Output 04/16/23 04/16/23 04/16/23 06:59 14:59 22:59 Intake Total 350 Balance 350 Intake: Oral 350 Other: # Voids 4 04/15/23 07:09 04/15/23 07:09
[2023-04-16] MEDS: CYCLOBENZAPRINE 5 MG TAB PO PRN (22:22)
[2023-04-17] MEDS: LEVOTHYROXINE 88 MCG TAB PO SCH (06:28)
[2023-04-17] MEDS: CALCIUM CARB-VIT D 500 MG-5 MCG TAB PO SCH (06:29)
[2023-04-17] MEDS: LORATADINE-PSEUDOEPH 5-120 MG 1 EACH TAB.ER.12H PO SCH (07:03)
[2023-04-17] MEDS: GABAPENTIN 300 MG CAP PO SCH (07:03)
[2023-04-17] MEDS: SENNOSIDES-DOCUSATE SODIUM 1 EACH TAB PO SCH (07:03)
[2023-04-17] MEDS: ENOXAPARIN 40 MG/0.4 ML SYRINGE SQ SCH (07:04)
[2023-04-17 08:13] VITALS: BP 100/60; PULSE 69; RESP 18; TEMP 98.8
[2023-04-17] MEDS: FERROUS SULFATE 325 MG TAB PO SCH (09:55)
--- NOTE | 2023-04-17 10:59 | P.PN ---
Subjective Progress Note Date: 04/17/23 Principal diagnosis: Status post [id number] decompression and fusion Patient was evaluated today at bedside, she is resting in her hospital chair. Patient is very near to go home. Patient was evaluated by cardiology, there observe this time, no acute treatments were initiated. Patient's heart rate seems to be improved. Patient currently denies any lightheadedness, chest pain or shortness of breath. She denies any numbness or tingling to the genital or perineal region. Objective - Vital Signs Vital signs: Vital Signs Temp 98.8 F 04/17/23 06:54 Pulse 69 04/17/23 06:54 Resp 18 04/17/23 06:54 BP 100/60 04/17/23 06:54 Pulse Ox 92 L 04/17/23 06:54 FiO2 Intake & Output 04/16/23 04/17/23 04/17/23 18:59 06:59 18:59 Intake Total 550 Output Total 100 Balance 450 Intake: Oral 550 Output: Urine 100 Other: Voiding Method Toilet # Voids 2 4 - Exam Gen: AOx3, NAD VSS stable at this time Integument: Postoperative dressings in good position and condition, no active drainage Palpation: Tenderness with palpation to the midline and paraspinal region of the lower lumbar spine ROM: Full range of motion in all major muscle groups of the bilateral upper and lower extremities, no focal deficits appreciated Sensory Exam: Senory exam to light touch is intact C5-T1 Senosry exam to light touch is intact L2-S1 Motor: 55 strength patient the bilateral upper extremities with shoulder elevation, shoulder abduction, elbow extension, elbow flexion, wrist extension, wrist flexion, nut tightener 4+/5 strength in the bilateral lower extremities with hip flexion, knee extension, knee flexion, plantar flexion, dorsiflexion, EHL, FHL Reflexes: 2/4 in all UE and LE Negative Pablo's bilaterally, negative clonus bilaterally, negative Babinski bilaterally - Labs CBC & Chem 7: 04/15/23 07:09 04/15/23 07:09 Assessment and Plan Assessment: Postoperative day #5 status post [id number] decompression and fusion Acute blood loss anemia, expected surgical Tachycardia Other medical comorbidities Plan: Pain control, plan for discharge home on oral medications, also utilize stool so fteners. Flexeril and gabapentin will also be utilized discharge Wound care, monitor surgical dressing. We did discuss showering instructions today at bedside LSO brace to be worn when up and ambulating. No bending, twisting or lifting at this time Encourage incentive spirometer Medical recommendations Cardiology recommendations Discharge planning: Orthopedically patient is stable for discharge to home on 04/17/2023. We'll await cardiology's final recommendations Time with Patient: Less than 30
--- NOTE | 2023-04-17 11:10 | P.DS ---
Providers Date of admission: 04/12/2023 Expected date of discharge: 04/17/23 Attending physician: Rick Kirkland DO Consults: 04/12/23 16:43 Consult Physician Routine Consulting Provider: Bacilio Jones Consult Reason/Comments: medical management Do you want consulting provider notified?: Yes 04/15/23 12:17 Consult Physician Routine Consulting Provider: [facility] Consult Reason/Comments: Tachycardia, PVCs Do you want consulting provider notified?: Yes Primary care physician: Sunny Anderson [place] [facility] Course: Date of admission: 04/11/2023 Date of discharge: 04/17/2023 Admission diagnosis: Low back pain, bilateral lower extremity weakness and paresthesias, L5-S1 grade 2 spondylolisthesis, L4-S1 spondylosis Discharge diagnosis: Status post L4-5, L5-S1 decompression with posteriolateral and interbody fusion, L4-Pelvis instrumentation Attending physician: Dr. Kirkland Surgical procedures: L4-5, L5-S1 decompression with posteriolateral and interbody fusion, L4-Pelvis instrumentation Brief history: Patient is a 63-year-old female with a history of chronic low back pain which included bilateral lower extremity weakness or radicular symptoms and paresthesias. She was also noted to have an L5-S1 grade 2 spondylolisthesis and L4-S1 spondylosis. At this point patient has failed conservative treatment measures and has opted to proceed with a elective L4-5, L5-S1 decompression with posteriolateral and interbody fusion, L4-Pelvis instrumentation. Hospital course: Details of patient's surgery can be found in operative report. Patient tolerated the procedure well and was subsequently transported to orthopedic floor. Patient's orthopeidc and medical care was provided daily. Patient had daily laboratory tests performed for evaluation of overall blood counts. Patient had daily physical therapy to include strengthening range of motion as well as education with walker ambulation. Patient was treated with [Xarelto] for their postoperative DVT prophylaxis during their inpatient stay. It was noted after surgery patient did develop an SVT with PVCs. Cardiology was consulted and the patient during her hospital stay. Patient reported sat isfactory pain control with oral pain medications by postoperative day 0. Patient showed satisfactory progress with physical therapy. Patient moved steadily through the program and had no difficulty meeting the goals by postoperative day 5. Given patient's otherwise satisfactory course and having met physical therapy goals, plan is to discharge patient home on postoperative day 5. Discharge condition/disposition: Patient will be discharged home in stable condition. Discharge medications: Instructions are given on resumption of patient's normal daily medications per primary care recommendation, in addition patient will be prescribed [place] 7.5 mg/325 mg, Flexeril 5 mg, gabapentin 300 mg, senna S, Duricef 500 mg, MiraLAX 17g. Spine Discharge and Recovery Instructions Date of Surgery: 09/23/2020 Dressing: Leave your dressing in place for a total of 5 days post operatively. Then you may remove your dressing and leave open to air. Keep the area clean and if not able to keep area clean, then cover with sterile gauze and tape. Showering: You may shower 3 days after your procedure allowing soap and water to run over incision. Do not scrub. Do not soak. Blot dry. Follow up: Please confirm a follow up appointment with your surgeon 3 weeks post operatively. Please make an appointment to follow up with your PCP in 1-2 weeks after james saad for evaluation 3 phase, 3-week plan POST OP WEEKS 1-3 1. Lifting/carrying/pushing/pulling limited to less than 5 pounds. 2. Do not sit for longer than 15 minutes at one time. Get up and walk around. Prolonged sitting is NOT advised. If you lay down, see if you can tolerate laying down on you front (belly side) 3. Walk for periods of 15 minutes = 1 mile but no longer; do it multiple times times each day. 4. Ice your low back after activity. POST OP WEEKS 3-6 1. Lifting limited to less than 20 pounds. 2. Do not sit for longer than 30 minutes at a time. Frequently change positions. Use a sit-to stand workstation or take frequent breaks from sitting if you have returned to work. 3. Walk for 30 minutes each day. If possible, do these three or more times a day POST OP WEEKS 6+ At your 6-week appointment we will give you a physical therapy referral to focus on a core stabilization and strengthening program. You should also work on leg & buttock strengthening, hamstring & quadriceps stretching, and continue a low impact aerobic activity program such as swimming, walking, or riding a stationary bicycle. During the initial 6 weeks after your surgery, you are at the highest risk of re-injuring your spine. You should generally avoid BLTs (bending, lifting and twisting combination motions) and follow the above guidelines to reduce the chance of reinjury. You can anticipate post op appointments in our office at approximately 3 weeks and 6 weeks after your surgery. INCISION CARE: If your incision is not draining you do NOT need to cover it with a dressing. Keep your incision clean, dry and intact. In most cases, we apply skin glue, ophelia or sutures to the incision at the time of surgery. This will be like a crust or have the appearance of a scab and will fall off in time on its own. The stitches or ophelia need to be removed at 3 weeks post op appointment. You may begin to shower 3 days after surgery (this allows the glue to wong well). However, please avoid scrubbing the incision site or peeling off any of the skin glue. This will ensure optimal healing of your incision. Also, during this time avoid soaking the incision area in water - this includes swimming pools, hot tubs or baths. No ointments, lotions or oils on the incision until your surgeon allows. Leave ophelia, sutures or glue in place. Neurological dysfunction that comes on suddenly can also be a sign of a stroke. Below some common symptoms of a stroke are listed: B - balance difficulty such as sudden onset walking or leaning to one side - NEW E - eye problem such as sudden double vision or trouble seeing on one side - NEW F - Facial weakness or numbness on one side - NEW A - Arm or leg weakness or numbness on one side - NEW S - Slurred speech or difficulty with word finding - NEW T - Time is BRAIN! Call 911 as soon as you recognize these symptoms Diet: Consume a regular diet rich in vegetables and lean protein such as chicken or fish. You should consume in a ratio of approximately 20% fats|40% carbohydrates|40%protein. Vegetables, sweet potatoes, brown rice or quinoa are examples of good carbohydrates. Chips, white bread, cookies and sweets/sugar are examples of bad carbohydrates. Limit your bad carbs, go wild with good carbs. "Life's Simple 7" Guidelines as per [place] [employer] These will help you reclaim your life after surgery and shipping room helper in your recovery, keeping in mind your restrictions. (1) Get Active. Physical activity can help people lose weight, control high blood pressure and cholesterol, feel emotionally better, and sleep better. (2) Control Cholesterol. Avoid a diet high in saturated fat, trans fat, & cholesterol. Limit whole milk & cream, ice cream, butter, egg yolks, processed meats (like sausage and hot dogs), and fatty meats. Choose healthy foods that are low in saturated fat, trans fat and cholesterol which include: Fruits and vegetables, fiber rich grain products (like whole grain pasta and brown rice), lean meat such as chicken, fish, nuts, seeds, and legumes. (3) Eat Better. Eat small portions. Shop at the grocery with a list and do not stray from it. Tips for a healthy diet include: Limit sodium intake to less than 1500mg daily, avoid prepackaged, processed, and fast foods, choose a diet rich in fruits, vegetables, and whole grain, high fiber foods, and limit saturated & cholesterol in your diet. (4) Manage Blood Pressure. If you have high blood pressure, you should have a cuff at home so that you can check your blood pressure regularly. Be sure you have a good cuff. An arm one is generally better than a wrist one. Bring the cuff to a doctor's appointment to validate that the measurements that your cuff are taking are accurate. Take your blood pressure twice daily when you are sitting down and relaxing. Record the numbers in a log and bring this log with you to your doctors' appointments. (5) Lose Weight if your BMI is above 25. A healthy BMI is between 19-25. To calculate Your BMI, you may use a Standard BMI Calculator on the NIH BMI website: <www.nhlbi.nih.gov/guidelines/obesity/BMI/bmicalc.htm>. Weigh oneself daily. If you are overweight, set a goal to lose weight. A pound a week loss if needed is a good target. (6) Reduce Blood Sugar. Limit foods and liquids with "added sugars." (Added sugars include sucrose, fructose, glucose, maltose, dextrose, high fructose corn syrup, corn syrup, concentrated fruit juice and honey). (7) Stop Smoking. If you smoke, quitting smoking is one of the best things that you can do for your health. Smoking increases your risk of heart attack, stroke, and peripheral vascular disease, which is a build-up of plaque in your arteries. Please discard all the cigarettes and lighters in your house. Have a plan for what you will do when you have the urge to smoke. Direct and second- hand smoke shortens your life as well as the lives of your family, friends and others around you. For your health and the health of those around you, please consider quitting! Proper Bending Body Mechanics: Maintain a wide stance with one foot slightly in front of the other. Keep your back straight. Bend utilizing the strength in your hips and knees. Do not bend at the waist. Maintain the lifted object at your waist-level close to your body. Avoid lifting weight that causes immediately pain or pain anywhere in the body afterwards. Smoking/Nicotine If there was ever one thing that you could do to increase your overall health, decrease your risk of cardiovascular problems by about 39% the second you make the choice, it is to STOP SMOKING. Your body's most instant gratification is the second you stop smoking. We have all heard the studies, read the articles but it is true, smoking is extremely bad for your overall health, and moreover it is detrimental to your bone health. Nicotine, IN ANY FORM, kills bone cells, prevents your body from healing fractures, and significantly prolongs healing after surgery. In spine surgery specifically, it increases your risk of not healing your bones to create a fusion and increases your risk of having a revision surgery due to this up to 60%. I know it is hard. I know it feels impossible. But there are ways. Take control of your life. We are here to help you through it. And when you are ready, ask us and we can direct you to help if you desire. Use the START Plan to Quit Smoking (please visit the Helpguide.org website listed below for more information): S = Set a quit date. Choose a date within the next 2 weeks, so you have enough time to prepare without losing your motivation to quit. If you mainly smoke at work, quit on the weekend, so you have a few days to adjust to the change. T = Tell family, friends, and co-workers that you plan to quit. Let your friends and family in on your plan to quit smoking and tell them you need their support and encouragement to stop. Look for a quit haylee who wants to stop smoking as well. You can help each other get through the rough times. A = Anticipate and plan for the challenges you'll face while quitting. Most people who begin smoking again do so within the first 3 months. You can help yourself make it through by preparing ahead for common challenges, such as nicotine withdrawal and cigarette cravings. R = Remove cigarettes and other tobacco products from your home, car, and work. Throw away all your cigarettes (no emergency pack!), lighters, ashtrays, and matches. Wash your clothes and freshen up anything that smells like smoke. Shampoo your car, clean your drapes and carpet, and steam your furniture. T = Talk to your doctor about getting help to quit. Your doctor can prescribe medication to help with withdrawal and suggest other alternatives. If you can't see a doctor, you can get many products over the counter at your local pharmacy or grocery store, including the nicotine patch, nicotine lozenges, and nicotine gum. Resources for Quitting Smoking: <https://www.[place].gov/documents/[facility]/Quit_Tobacco_Resources_for_patients_313 480_7.pdf> Supplementation: Take recommended dosages of Vitamin D and Calcium to help fortify your bones and help them to heal. See your health maintenance packet for dosages and recommended levels. DVT/VTE prophylaxis: You will be given compression stockings from the hospital. Wear these daily for the first two weeks after surgery. You may take them off at night. You may be prescribed a medication to help thin your blood. Take this as directed. If you are not prescribed this medication, early and frequent ambulation has been shown to be the best prophylaxis to deep vein thrombosis and sequelae related to this event. Procedures: L4-5, L5-S1 decompression with posteriolateral and interbody fusion L4-Pelvis instrumentation Patient Condition at Discharge: Good Plan - Discharge Summary Discharge Rx Participant: Yes New Discharge Prescriptions: New cefaDROXiL [Duricef] 500 mg PO Q12HR 5 Days #10 cap Gabapentin 300 mg PO BID 10 Days #30 cap Sennosides/Docusate Sodium [Senna-S 8.6-50 mg Tablet] 1 each PO DAILY PRN #21 tablet PRN Reason: Constipation Cyclobenzaprine [Flexeril] 5 mg PO BID PRN #30 tablet PRN Reason: Muscle Spasm polyethylene glycoL 3350 [Miralax] 17 gm PO DAILY PRN #21 packet PRN Reason: Constipation HYDROcodone/APAP 7.5-325MG [[place] 7.5] 1 each PO Q6HR PRN #28 tab PRN Reason: Pain No Action Meloxicam [Mobic] 15 mg PO HS Loratadine-Pseudoeph 10-240 mg [Claritin-D 24 Hour] 1 tab PO Q48H Levothyroxine Sodium [Euthyrox] 88 mcg PO DAILY Acetaminophen Tab [Tylenol Tab] 1,000 mg PO Q6HR PRN #30 tablet PRN Reason: Pain Simethicone [Gas-X] 125 mg PO AC-TID PRN PRN Reason: ABD PAIN, GAS Discharge Medication List Meloxicam [Mobic] 15 mg PO HS 03/08/21 [History] Levothyroxine Sodium [Euthyrox] 88 mcg PO DAILY 03/16/22 [History] Acetaminophen Tab [Tylenol Tab] 1,000 mg PO Q6HR PRN #30 tablet 03/18/22 [Rx] Loratadine-Pseudoeph 10-240 mg [Claritin-D 24 Hour] 1 tab PO Q48H 04/08/23 [History] Simethicone [Gas-X] 125 mg PO AC-TID PRN 04/08/23 [History] Cyclobenzaprine [Flexeril] 5 mg PO BID PRN #30 tablet 04/17/23 [Rx] Gabapentin 300 mg PO BID 10 Days #30 cap 04/17/23 [Rx] HYDROcodone/APAP 7.5-325MG [[place] 7.5] 1 each PO Q6HR PRN #28 tab 04/17/23 [Rx] Sennosides/Docusate Sodium [Senna-S 8.6-50 mg Tablet] 1 each PO DAILY PRN #21 tablet 04/17/23 [Rx] cefaDROXiL [Duricef] 500 mg PO Q12HR 5 Days #10 cap 04/17/23 [Rx] polyethylene glycoL 3350 [Miralax] 17 gm PO DAILY PRN #21 packet 04/17/23 [Rx] Follow up Appointment(s)/Referral(s): Rick Kirkland DO [Doctor of Osteopathic Medicine] - 2 Weeks Activity/Diet/Wound Care/Special Instructions: Spine Discharge and Recovery Instructions Dressing: Leave your dressing in place for a total of 5 days post operatively. Then you may remove your dressing and leave open to air. Keep the area clean and if not able to keep area clean, then cover with sterile gauze and tape. Showering: You may shower 3 days after your procedure allowing soap and water to run over incision. Do not scrub. Do not soak. Blot dry. Follow up: Please confirm a follow up appointment with your surgeon 3 weeks post operatively. Please make an appointment to follow up with your PCP in 1-2 weeks after surgery for evaluation 3 phase, 3-week plan POST OP WEEKS 1-3 1. Lifting/carrying/pushing/pulling limited to less than 5 pounds. 2. Do not sit for longer than 15 minutes at one time. Get up and walk around. Prolonged sitting is NOT advised. If you lay down, see if you can tolerate laying down on you front (belly side) 3. Walk for periods of 15 minutes = 1 mile but no longer; do it multiple times times each day. 4. Ice your low back after activity. POST OP WEEKS 3-6 1. Lifting limited to less than 20 pounds. 2. Do not sit for longer than 30 minutes at a time. Frequently change positions. Use a sit-to stand workstation or take frequent breaks from sitting if you have returned to work. 3. Walk for 30 minutes each day. If possible, do these three or more times a day POST OP WEEKS 6+ At your 6-week appointment we will give you a physical therapy referral to focus on a core stabilization and strengthening program. You should also work on leg & buttock strengthening, hamstring & quadriceps stretching, and continue a low impact aerobic activity program such as swimming, walking, or riding a stationary bicycle. During the initial 6 weeks after your surgery, you are at the highest risk of re-injuring your spine. You should generally avoid BLTs (bending, lifting and twisting combination motions) and follow the above guidelines to reduce the chance of reinjury. You can anticipate post op appointments in our office at approximately 3 weeks and 6 weeks after your surgery. INCISION CARE: If your incision is not draining you do NOT need to cover it with a dressing. Keep your incision clean, dry and intact. In most cases, we apply skin glue, ophelia or sutures to the incision at the time of surgery. This will be like a crust or have the appearance of a scab and will fall off in time on its own. The stitches or ophelia need to be removed at 3 weeks post op appointment. You may begin to shower 3 days after surgery (this allows the glue to wong well). However, please avoid scrubbing the incision site or peeling off any of the skin glue. This will ensure optimal healing of your incision. Also, during this time avoid soaking the incision area in water - this includes swimming pools, hot tubs or baths. No ointments, lotions or oils on the incision until your surgeon allows. Leave ophelia, sutures or glue in place. Neurological dysfunction that comes on suddenly can also be a sign of a stroke. Below some common symptoms of a stroke are listed: B - balance difficulty such as sudden onset walking or leaning to one side - NEW E - eye problem such as sudden double vision or trouble seeing on one side - NEW F - Facial weakness or numbness on one side - NEW A - Arm or leg weakness or numbness on one side - NEW S - Slurred speech or difficulty with word finding - NEW T - Time is BRAIN! Call 911 as soon as you recognize these symptoms Diet: Consume a regular diet rich in vegetables and lean protein such as chicken or fish. You should consume in a ratio of approximately 20% fats|40% carbohydrates|40%protein. Vegetables, sweet potatoes, brown rice or quinoa are examples of good carbohydrates. Chips, white bread, cookies and sweets/sugar are examples of bad carbohydrates. Limit your bad carbs, go wild with good carbs. "Life's Simple 7" Guidelines as per [place] [employer] These will help you reclaim your life after surgery and shipping room helper in your recovery, keeping in mind your restrictions. (1) Get Active. Physical activity can help people lose weight, control high blood pressure and cholesterol, feel emotionally better, and sleep better. (2) Control Cholesterol. Avoid a diet high in saturated fat, trans fat, & cholesterol. Limit whole milk & cream, ice cream, butter, egg yolks, processed meats (like sausage and hot dogs), and fatty meats. Choose healthy foods that are low in saturated fat, trans fat and cholesterol which include: Fruits and vegetables, fiber rich grain products (like whole grain pasta and brown rice), lean meat such as chicken, fish, nuts, seeds, and legumes. (3) Eat Better. Eat small portions. Shop at the grocery with a list and do not stray from it. Tips for a healthy diet include: Limit sodium intake to less than 1500mg daily, avoid prepackaged, processed, and fast foods, choose a diet rich in fruits, vegetables, and whole grain, high fiber foods, and limit saturated & cholesterol in your diet. (4) Manage Blood Pressure. If you have high blood pressure, you should have a cuff at home so that you can check your blood pressure regularly. Be sure you have a good cuff. An arm one is generally better than a wrist one. Bring the cuff to a doctor's appointment to validate that the measurements that your cuff are taking are accurate. Take your blood pressure twice daily when you are sitting down and relaxing. Record the numbers in a log and bring this log with you to your doctors' appointments. (5) Lose Weight if your BMI is above 25. A healthy BMI is between 19-25. To calculate Your BMI, you may use a Standard BMI Calculator on the NIH BMI website: <www.nhlbi.nih.gov/guidelines/obesity/BMI/bmicalc.htm>. Weigh oneself daily. If you are overweight, set a goal to lose weight. A pound a week loss if needed is a good target. (6) Reduce Blood Sugar. Limit foods and liquids with "added sugars." (Added sugars include sucrose, fructose, glucose, maltose, dextrose, high fructose corn syrup, corn syrup, concentrated fruit juice and honey). (7) Stop Smoking. If you smoke, quitting smoking is one of the best things that you can do for your health. Smoking increases your risk of heart attack, stroke, and peripheral vascular disease, which is a build-up of plaque in your arteries. Please discard all the cigarettes and lighters in your house. Have a plan for what you will do when you have the urge to smoke. Direct and second- hand smoke shortens your life as well as the lives of your family, friends and others around you. For your health and the health of those around you, please consider quitting! Proper Bending Body Mechanics: Maintain a wide stance with one foot slightly in front of the other. Keep your back straight. Bend utilizing the strength in your hips and knees. Do not bend at the waist. Maintain the lifted object at your waist-level close to your body. Avoid lifting weight that causes immediately pain or pain anywhere in the body afterwards. Smoking/Nicotine If there was ever one thing that you could do to increase your overall health, decrease your risk of cardiovascular problems by about 39% the second you make the choice, it is to STOP SMOKING. Your body's most instant gratification is the second you stop smoking. We have all heard the studies, read the articles but it is true, smoking is extremely bad for your overall health, and moreover it is detrimental to your bone health. Nicotine, IN ANY FORM, kills bone cells, prevents your body from healing fractures, and significantly prolongs healing after surgery. In spine surgery specifically, it increases your risk of not healing your bones to create a fusion and increases your risk of having a revision surgery due to this up to 60%. I know it is hard. I know it feels impossible. But there are ways. Take control of your life. We are here to help you through it. And when you are ready, ask us and we can direct you to help if you desire. Use the START Plan to Quit Smoking (please visit the Helpguide.org website listed below for more information): S = Set a quit date. Choose a date within the next 2 weeks, so you have enough time to prepare without losing your motivation to quit. If you mainly smoke at work, quit on the weekend, so you have a few days to adjust to the change. T = Tell family, friends, and co-workers that you plan to quit. Let your friends and family in on your plan to quit smoking and tell them you need their support and encouragement to stop. Look for a quit haylee who wants to stop smoking as well. You can help each other get through the rough times. A = Anticipate and plan for the challenges you'll face while quitting. Most people who begin smoking again do so within the first 3 months. You can help yourself make it through by preparing ahead for common challenges, such as nicotine withdrawal and cigarette cravings. R = Remove cigarettes and other tobacco products from your home, car, and work. Throw away all your cigarettes (no emergency pack!), lighters, ashtrays, and matches. Wash your clothes and freshen up anything that smells like smoke. Shampoo your car, clean your drapes and carpet, and steam your furniture. T = Talk to your doctor about getting help to quit. Your doctor can prescribe medication to help with withdrawal and suggest other alternatives. If you can't see a doctor, you can get many products over the counter at your local pharmacy or grocery store, including the nicotine patch, nicotine lozenges, and nicotine gum. Resources for Quitting Smoking: <https://www.[place].gov/documents/[facility]/Quit_Tobacco_Res ources_for_patients_313480_7.pdf> Supplementation: Take recommended dosages of Vitamin D and Calcium to help fortify your bones and help them to heal. See your health maintenance packet for dosages and recommended levels. DVT/VTE prophylaxis: You will be given compression stockings from the hospital. Wear these daily for the first two weeks after surgery. You may take them off at night. You may be prescribed a medication to help thin your blood. Take this as directed. If you are not prescribed this medication, early and frequent ambulation has been shown to be the best prophylaxis to deep vein thrombosis and sequelae related to this event. Discharge Disposition: HOME SELF-CARE
--- NOTE | 2023-04-17 11:18 | P.PN ---
Subjective HISTORY OF PRESENTING ILLNESS Patient is a pleasant 63-year-old female with history of L4 spinal decompression and fusion, postop day 4 and anemia. Patient was a value by Dr. Zuñiga for preoperative clearance and reportedly normal stress test with mild to moderate regurgitation and no other significant findings and was cleared for surgery. She did well with surgery however has had intermittent episodes of feeling shaky. There is no actual correlation however with any arrhythmia to her shaking. She was however noted to have occasional episodes of tachycardia with heart rates up in the 140s. Telemetry reveals long RP tachycardia, SVT which is regular. She had 2 episodes each of was lasted for approximately 20-30 minutes. These were broken with a PVC. She also has been having occasional PVCs. She denies any lightheadedness or dizziness and no change in chronic dyspnea. EKG showing normal sinus rhythm normal axis, no significant ST or T-wave abnormalities. Denies any chest pain or pressure. 04/17 Patient seen and examined. Patient overall states she is feeling well. She did have an episode of feeling diaphoretic yesterday however not clearly associated with an SVT and no other chest pain or shortness breath. She did have continued episodes fairly persistent for approximately 2 hours with SVT with heart rate in the 1:30 to 135 range. This was while she was sleeping and was fairly asymptomatic. On further questioning she does occasionally get tired and fatigued at times and may be symptomatic from this at home. PHYSICAL EXAMINATION Vital signs reviewed. CONSTITUTIONAL: No apparent distress. HEENT: Head is normocephalic. Pupils are equal, round. Sclerae anicteric. Mucous membranes of the mouth are moist. No JVD. No carotid bruit. CHEST EXAMINATION: Lungs are clear to auscultation. No chest wall tenderness is noted on palpation or with deep breathing. HEART EXAMINATION: Regular rate and rhythm. S1, S2 heard. No murmurs, gallops or rub. ABDOMEN: Soft, nontender. Positive bowel sounds. EXTREMITIES: 2+ peripheral pulses, no lower extremity edema and no calf tenderness. NEUROLOGIC EXAMINATION: Patient is awake, alert and oriented x3. ASSESSMENT 1. Post op lumbar decompression/ fusion 2. SVT 3. "Shaking" episodes, not correlating with SVT 4. Borderline BP 5. Anemia 6. Chronic dyspnea PLAN Patient with intermittent episodes of SVT and predominantly asymptomatic however may be causing some of her intermittent fatigue at home. Unable to tolerate any blood pressure medications currently with borderline blood pressures. Ultimately would benefit from ablation. Currently appears stable for discharge home with outpatient follow-up in 1-2 weeks. Objective - Vital Signs Vital signs: Vital Signs Temp 98.8 F 04/17/23 06:54 Pulse 69 04/17/23 06:54 Resp 18 04/17/23 06:54 BP 100/60 04/17/23 06:54 Pulse Ox 92 L 04/17/23 06:54 FiO2 Intake & Output 04/16/23 04/17/23 04/17/23 18:59 06:59 18:59 Intake Total 550 Output Total 100 Balance 450 Intake: Oral 550 Output: Urine 100 Other: Voiding Method Toilet # Voids 2 4 - Labs CBC & Chem 7: 04/15/23 07:09 04/15/23 07:09
--- NOTE | 2023-04-17 15:29 | P.PN ---
Subjective Progress Note Date: 04/16/23 63-year-old female patient with history of hypothyroidism, underwent L4-L5 decompression and fusion - Patient is POD #1 Orthopedic surgery on board with plans for possible discharge once clinically stable 04/16/2023 Patient is seen and evaluated in room at bedside ; has been seen by cardiology and noted to have occasional episodes of tachycardia with heart rates up in the 140s. Telemetry reveals long RP tachycardia, SVT which is regular. She had 2 episodes each of was lasted for approximately 20-30 minutes. These were broken with a PVC. She also has been having occasional PVCs. She denies any lightheadedness or dizziness and no change in chronic dyspnea. EKG showing normal sinus rhythm normal axis, no significant ST or T-wave abnormalities. Denies any chest pain or pressure Patient had undergone previous preoperative workup and she is having intermittent episodes of SVT. Predominantly she is asymptomatic with heart rates in the 140s. Possibly add Cardizem however blood pressure is borderline and therefore continue to monitor given she is relatively asymptomatic from this. Long-term, if patient is symptomatic may consider ablation. No significant atrial fibrillation or atrial flutter noted and appears consistent with SVT with resolution after PVC. Objective - Vital Signs Vital signs: Vital Signs Temp 99.9 F H 04/16/23 14:19 Pulse 133 H 04/16/23 14:19 Resp 18 04/16/23 14:19 BP 94/62 04/16/23 14:19 Pulse Ox 91 L 04/16/23 14:19 FiO2 Intake & Output 04/15/23 04/16/23 04/16/23 18:59 06:59 18:59 Intake Total 550 350 Output Total 0 Balance 550 0 350 Intake: Oral 550 350 Output: Drainage 0 Back 0 Other: Voiding Method Toilet # Voids 3 4 - Exam PHYSICAL EXAMINATION: GENERAL: The patient is alert and oriented x3, not in any acute distress. Well developed, well nourished. HEENT: Pupils are round and equally reacting to light. EOMI. No scleral icterus. No conjunctival pallor. Normocephalic, atraumatic. No pharyngeal erythema. No t hyromegaly. CARDIOVASCULAR: S1 and S2 present. No murmurs, rubs, or gallops. PULMONARY: Chest is clear to auscultation, no wheezing or crackles. ABDOMEN: Soft, nontender, nondistended, normoactive bowel sounds. No palpable organomegaly. MUSCULOSKELETAL: No joint swelling or deformity. EXTREMITIES: No cyanosis, clubbing, or pedal edema. NEUROLOGICAL: Gross neurological examination did not reveal any focal deficits. SKIN: No rashes. - Labs CBC & Chem 7: 04/15/23 07:09 04/15/23 07:09 Assessment and Plan Assessment: 1. Status post L4-L5 decompression and fusion 2. Hypothyroidism 3. Fibromyalgia 4. History of DJD 5. Family history of DVT/PE -- Patient remains stable on current medications; we will continue to monitor closely - Orthopedic surgery managing pain control - Patient is recommended incentive spirometry and increase activity as tolerated DVT prophylaxis; SCDs/subcu Lovenox CODE STATUS; full code
--- NOTE | 2023-04-17 15:32 | P.PN ---
Subjective Progress Note Date: 04/17/23 63-year-old female patient with history of hypothyroidism, underwent L4-L5 decompression and fusion - Patient is POD #1 Orthopedic surgery on board with plans for possible discharge once clinically stable 04/16/2023 Patient is seen and evaluated in room at bedside ; has been seen by cardiology and noted to have occasional episodes of tachycardia with heart rates up in the 140s. Telemetry reveals long RP tachycardia, SVT which is regular. She had 2 episodes each of was lasted for approximately 20-30 minutes. These were broken with a PVC. She also has been having occasional PVCs. She denies any lightheadedness or dizziness and no change in chronic dyspnea. EKG showing normal sinus rhythm normal axis, no significant ST or T-wave abnormalities. Denies any chest pain or pressure Patient had undergone previous preoperative workup and she is having intermittent episodes of SVT. Predominantly she is asymptomatic with heart rates in the 140s. Possibly add Cardizem however blood pressure is borderline and therefore continue to monitor given she is relatively asymptomatic from this. Long-term, if patient is symptomatic may consider ablation. No significant atrial fibrillation or atrial flutter noted and appears consistent with SVT with resolution after PVC. 04/17/2023 Patient seen and examined in the room at bedside. Patient overall states she is feeling well. She did have an episode of feeling diaphoretic yesterday however not clearly associated with an SVT and no other chest pain or shortness breath. She did have continued episodes fairly persistent for approximately 2 hours with SVT with heart rate in the 130 to 135 range. This was while she was sleeping and was fairly asymptomatic. On further questioning she does occasionally get tired and fatigued at times and may be symptomatic from this at home. Patient with intermittent episodes of SVT and predominantly asymptomatic however may be causing some of her intermittent fatigue at home. Unable to tolerate any blood pressure medications currently with borderline blood pressures. Ultimately would benefit from ablation. Currently appears stable for discharge home with outpatient follow-up with cardiology in 1-2 weeks Objective - Vital Signs Vital signs: Vital Signs Temp 98.8 F 04/17/23 06:54 Pulse 69 04/17/23 06:54 Resp 18 04/17/23 06:54 BP 100/60 04/17/23 06:54 Pulse Ox 92 L 04/17/23 06:54 FiO2 Intake & Output 0604/17/23 04/17/23 18:59 06:59 18:59 Intake Total 550 Output Total 100 Balance 450 Intake: Oral 550 Output: Urine 100 Other: Voiding Method Toilet # Voids 2 4 - Exam PHYSICAL EXAMINATION: GENERAL: The patient is alert and oriented x3, not in any acute distress. Well developed, well nourished. HEENT: Pupils are round and equally reacting to light. EOMI. No scleral icterus. No conjunctival pallor. Normocephalic, atraumatic. No pharyngeal erythema. No thyromegaly. CARDIOVASCULAR: S1 and S2 present. No murmurs, rubs, or gallops. PULMONARY: Chest is clear to auscultation, no wheezing or crackles. ABDOMEN: Soft, nontender, nondistended, normoactive bowel sounds. No palpable organomegaly. MUSCULOSKELETAL: No joint swelling or deformity. EXTREMITIES: No cyanosis, clubbing, or pedal edema. NEUROLOGICAL: Gross neurological examination did not reveal any focal deficits. SKIN: No rashes. - Labs CBC & Chem 7: 04/15/23 07:09 04/15/23 07:09 Assessment and Plan Assessment: 1. Status post L4-L5 decompression and fusion 2. Hypothyroidism 3. Fibromyalgia 4. History of DJD 5. Family history of DVT/PE -- Patient remains stable on current medications; we will continue to monitor closely - Orthopedic surgery managing pain control - Patient is recommended incentive spirometry and increase activity as tolerated DVT prophylaxis; SCDs/subcu Lovenox CODE STATUS; full code
== END 2023-04-17 13:51 | disposition home or self-care (01) ==
LOC: OR 08:58 → 4SSUR 08:59 → OR 16:29 → 4SSUR 16:29 → OR 04-17 13:51 → 4SSUR 04-17 13:51
PROVIDERS: ADMIT Orthopaedic Surgery; ATTEND Orthopaedic Surgery
DX: M43.16 Spondylolisthesis, lumbar region (principal); M47.27 Other spondylosis with radiculopathy, lumbosacral region; M48.062 Spinal stenosis, lumbar region with neurogenic claudication; M46.1 Sacroiliitis, not elsewhere classified; E06.3 Autoimmune thyroiditis; K21.9 Gastro-esophageal reflux disease without esophagitis; G89.4 Chronic pain syndrome; I38 Endocarditis, valve unspecified; M79.7 Fibromyalgia; Z86.2 Personal history of diseases of the blood and blood-forming organs and certain disorders involving the immune mechanism; Z82.49 Family history of ischemic heart disease and other diseases of the circulatory system; Z96.651 Presence of right artificial knee joint; Z98.890 Other specified postprocedural states; Z79.1 Long term (current) use of non-steroidal anti-inflammatories (NSAID); Z79.890 Hormone replacement therapy; Z79.891 Long term (current) use of opiate analgesic; Z79.899 Other long term (current) drug therapy; Z88.5 Allergy status to narcotic agent; Z88.0 Allergy status to penicillin; Z88.7 Allergy status to serum and vaccine
CPT/HCPCS: 97162; 86900; 86901; 80048; 85025; 86850; 72100; 72131; 22630; 22632; 22853 ×3; 20930; 20936; 22842; G0378 ×4; C1713; J2250; J3370; J0330; J1580; J2710; J0690 ×7; J2405; J1650 ×5; J3010; J1170 ×2; J2370; J2704; J2001

== ENCOUNTER → 2023-04-22 | Outpatient (CLI) | payer MEDICAID ==
[2023-04-22 15:41] LABS: HCT 25.7 % (37.2-46.3); HGB 7.6 d/dL (12.0-15.0); MCH 29.8 pg (27.0-32.0); MCHC 29.6 d/dL (32.0-37.0); MCV 100.8 FL (80.0-97.0); Mean Platelet Volume 8.8 FL (9.5-12.2); NRBC Per 100 WBC 0 X 10*3/uL (0.00-0.01); Platelet Count 457 X 10*3/uL (140-440); RBC 2.55 X 10*6/uL (4.10-5.20); RDW 13.5 % (11.5-14.5); WBC 7.41 X 10*3/uL (4.50-10.00)
[2023-04-22 15:58] LABS: Blood Urea Nitrogen 7.8 mg/dL (9.0-27.0); Calcium 8.9 mg/dL (8.7-10.3); Carbon Dioxide 27.8 mmol/L (21.6-31.8); Chloride 105 mmol/L (96-109); Glucose 110 mg/dL (70-110); Potassium 4.7 mmol/L (3.5-5.5); Sodium 140 mmol/L (135-145)
== END | disposition home or self-care (01) ==
LOC: LABWHC1 09:04
PROVIDERS: ATTEND Internal Medicine Interventional Cardiology
DX: D64.9 Anemia, unspecified (principal)
CPT/HCPCS: 36415; 80048; 85027

== ENCOUNTER → 2023-05-09 | Outpatient (CLI) | payer MEDICAID ==
[2023-05-09 16:13] LABS: Basophils % (A) 0 %; Eosinophils # (A) 0.1 k/uL (0-0.7); Eosinophils % (A) 2 %; HCT 33.9 % (34.0-46.0); HGB 10.7 gm/dL (11.4-16.0); Hypochromasia Marked; Lymphocytes # (A) 1.3 k/uL (1.0-4.8); Lymphocytes % (A) 21 %; MCH 30.9 pg (25.0-35.0); MCHC 31.5 g/dL (31.0-37.0); MCV 98.3 fL (80.0-100.0); Mean Platelet Volume 7.3; Monocytes # (A) 0.4 k/uL (0-1.0); Monocytes % (A) 6 %; Neutrophils # (A) 4.1 k/uL (1.3-7.7); Neutrophils % (A) 69 %; Platelet Count 230 k/uL (150-450); RBC 3.45 m/uL (3.80-5.40); RDW 14.3 % (11.5-15.5); WBC 5.9 k/uL (3.8-10.6)
[2023-05-10 02:45] LABS: Ferritin 60.2 ng/mL (10.0-291.0)
== END | disposition home or self-care (01) ==
LOC: LABWHC1 14:36
PROVIDERS: ATTEND Nurse Practitioner Family
DX: D51.0 Vitamin B12 deficiency anemia due to intrinsic factor deficiency (principal)
CPT/HCPCS: 36415; 82728; 83540; 85025

== ENCOUNTER → 2024-04-12 | Outpatient (CLI) | payer MEDICARE | END | disposition home or self-care (01) | LOC: LABPAT 09:38 | PROVIDERS: ATTEND Orthopaedic Surgery | DX: Z01.812 Encounter for preprocedural laboratory examination (principal); M19.011 Primary osteoarthritis, right shoulder; Z22.322 Carrier or suspected carrier of Methicillin resistant Staphylococcus aureus | CPT/HCPCS: 87070 ==

== ENCOUNTER 2024-06-05 10:44 | Day surgery (SDC) | payer MEDICARE ==
--- NOTE | 2024-06-03 08:51 | P.HPOR ---
History of Present Illness H&P Date: 06/03/24 Chief Complaint: Right shoulder pain The patient is a 64-year-old retired female who presents with right shoulder pain has progressed over the past 2 years. She is having pain with any attempted overhead activity and at night. She's tried home exercises along with medications without much relief. Review of Systems Per HPI Past Medical History Past Medical History: Fibromyalgia, GERD/Reflux, Osteoarthritis (OA), Thyroid Disorder Additional Past Medical History / Comment(s): Hypoglycemia, occ migraines, Shyla's, hx palpitations, hx pernicious anemia, HX HO'S PALSY R/T COVID VACCINE History of Any Multi-Drug Resistant Organisms: None Reported Past Surgical History: Back Surgery, Breast Surgery, Hernia Repair, Joint Re placement, Tubal Ligation Additional Past Surgical History / Comment(s): arthroscopic left knee surg., BILAT TKA, CYST REMOVED FROM RT BREAST, COLONOSCOPY, lumbar spine surgery Past Anesthesia/Blood Transfusion Reactions: No Reported Reaction Additional Past Anesthesia/Blood Transfusion Reaction / Comment(s): no hx. of blood transfusion Smoking Status: Never smoker - Past Family History Mother Family Medical History: Deep Vein Thrombosis (DVT), Pulmonary Embolus Father Family Medical History: Cancer Medications and Allergies Home Medications Medication Instructions Recorded Confirmed Type Meloxicam [Mobic] 15 mg PO HS 03/08/21 06/01/24 History Levothyroxine Sodium [Euthyrox] 88 mcg PO DAILY 03/16/22 06/01/24 History Cholecalciferol (Vitamin D3) 125 mcg PO Q2D 06/01/24 06/01/24 History [Vitamin D3] Furosemide [Lasix] 20 mg PO DAILY 06/01/24 06/01/24 History Loratadine-Pseudoeph 10-240 mg 1 tab PO DAILY 06/01/24 06/01/24 History [Claritin-D 24 Hour] Multivitamins, Thera [Multivitamin 1 tab PO DAILY 06/01/24 06/01/24 History (formulary)] dilTIAZem HCL [dilTIAZem HCL 24Hr 120 mg PO HS 06/01/24 06/01/24 History ER ([place])] Allergies Allergy/AdvReac Type Severity Reaction Status Date / Time amoxicillin AdvReac Rash/Hives Verified 06/01/24 08:50 tramadol AdvReac Confusion Verified 06/01/24 08:50 COVID VACCINE Allergy HO'S Uncoded 06/01/24 08:50 PALSY Physical Examination - Shoulder right Appearance: effusion Tenderness with palpation: anterior, bicipital groove Pain: with abduction, with forward flexion ROM: forward flexion: 60 degrees ROM: internal rotation: 0 ROM: external rotation: 0 degrees (With pain) Crepitus with motion: Yes Strength: abduction: 4/5 Strength: forward flexion: 4/5 Strength: external rotation: 4/5 Tests: internal impingement tests: positive, external impingment tests: positive Results The patient is a well-developed well-nourished female approximately 5 foot tall, 189 pounds of endomorphic habitus. HEENT exam is nonfocal, neck is supple. She's tender about the right shoulder anterior glenohumeral joint. She has moderate crepitus. Passively I'm able to forward elevate her to 90. Her distal neurovascular appears intact in the right upper extremity. Calderon, Neer sign, speed test are positive. - Diagnostic results Shoulder x-ray: image reviewed (3 views of the right shoulder can the office show severe glenohumeral joint space narrowing with subchondral sclerosis and [id number] changes.) Assessment and Plan Assessment: Right severe glenohumeral joint osteoarthrosis Plan: I talked to the patient at length regarding her condition along with treatment options. At this point she is quite symptomatic having pain and mechanical symptoms related to osteoarthrosis despite previous conservative measures. After a thorough discussion she opts to proceed with surgery. We'll plan to proceed with right total shoulder arthroplasty. Risks and benefits were discussed at length in layman terms. We will likely keep the patient for 23 hour hold postoperatively.
[~2024-06-05 10:44] MED LIST changes: -ACETAMINOPHEN TAB 500 MG TAB PO PRN; -DEXAMETHASONE SOD PHOSPHATE 4 MG/ML 1 ML VIAL IV ONE; -GABAPENTIN 300 MG CAP PO PRN; -HYDROmorphone 0.5 MG/0.5 ML SYRINGE IVP PRN; +MIDAZOLAM 2 MG/2 ML VIAL IV PRN; -ONDANSETRON 4 MG/2 ML VIAL IVP ONE; -ONDANSETRON 4 MG/2 ML VIAL IVP PRN; +fentaNYL (PF) 50 MCG/ML 2 ML AMP IV PRN
[2024-06-05] MEDS: MELOXICAM 7.5 MG TAB PO PRN (11:18)
[2024-06-05] MEDS: DEXAMETHASONE SOD PHOSPHATE 4 MG/ML 1 ML VIAL IV ONE (11:19)
[2024-06-05] MEDS: ACETAMINOPHEN TAB 500 MG TAB PO PRN (11:19)
[2024-06-05] MEDS: ONDANSETRON 4 MG/2 ML VIAL IVP ONE (11:19)
[2024-06-05] MEDS: LACTATED RINGERS 1,000 ML IV SCH (11:20)
[2024-06-05 11:39] LABS: Glucose,Whole Blood 130 mg/dL (70-110)
[2024-06-05] MEDS: IV FLUID CONTINUATION 1,000 ML IV ONE (11:41)
[2024-06-05] MEDS: MIDAZOLAM 2 MG/2 ML VIAL IVP ONE (12:31)
[2024-06-05] MEDS ORDERED: TRANEXAMIC 1,000 MG/100ML-NACL PREMIX BAG ONE (12:51)
[2024-06-05] MEDS ORDERED: PHENYLEPHRINE 10 MG/ML VIAL ONE (12:51)
[2024-06-05] MEDS ORDERED: SUCCINYLCHOLINE CHLORIDE 200 MG/10 ML VIAL IV ONE (12:51)
[2024-06-05] MEDS ORDERED: ROCURONIUM 10 MG/ML (5 ML VIAL) IV ONE (12:51)
[2024-06-05] MEDS ORDERED: PROPOFOL 10 MG/ML 20 ML VIAL IV ONE (12:51)
[2024-06-05] MEDS ORDERED: ROPIVACAINE 5 MG/ML 30 ML VIAL ONE (12:51)
[2024-06-05] MEDS ORDERED: LIDOCAINE 1% INJ 10MG/ML (20 ML MDV) ONE (12:51)
[2024-06-05] MEDS ORDERED: GLYCOPYRROLATE 0.2 MG/ML 2 ML VIAL ONE (12:51)
[2024-06-05] MEDS ORDERED: DEXAMETHASONE SOD PHOSPHATE 4 MG/ML 1 ML VIAL ONE (12:51)
[2024-06-05] MEDS ORDERED: NEOSTIGMINE 1 MG/ML 10 ML VIAL ONE (12:51)
[2024-06-05] MEDS: ceFAZolin 1,000 MG in SODIUM CHLORIDE 0.9% 1,000 ML IRRIGATION ONE (13:27)
[2024-06-05] MEDS: LACTATED RINGERS 1,000 ML IV ONE (14:20)
[2024-06-05] MEDS ORDERED: HYDROcodone/APAP 5-325MG 1 EACH TAB PO PRN (14:34)
[2024-06-05] MEDS ORDERED: hydrOXYzine pamoate 25 MG CAP PO PRN (14:34)
[2024-06-05] MEDS ORDERED: HYDROmorphone 0.5 MG/0.5 ML SYRINGE IVP PRN (14:34)
[2024-06-05] MEDS ORDERED: SENNOSIDES-DOCUSATE SODIUM 1 EACH TAB PO PRN (14:34)
--- NOTE | 2024-06-05 14:53 | P.OP ---
Date of Procedure: 06/05/24 Preoperative Diagnosis: Severe right glenohumeral joint osteoarthrosis Postoperative Diagnosis: Same Procedure(s) Performed: Right total shoulder arthroplasty Implants: [employer] size 8 press-fit humeral stem, size 8 body, 44 x 21 eccentric humeral head, 44 mm cemented peg glenoid component. Anesthesia: margot POLANCO Surgeon: Brandt Adame Networker #1: Ludin Martinez Estimated Blood Loss (ml): 150 Pathology: none sent Condition: stable Disposition: PACU Indications for Procedure: The patient is a 64-year-old female who presents with progressive right shoulder pain secondary to osteoarthrosis despite conservative measures. A discussion of the risks and benefits of operative intervention versus continued conservative measures was made with the patient. She opted to proceed with surgery. Operative risks include infection, neurovascular injury, development of blood clots, fracture, possible component loosening/failure and possible need for subsequent procedures was discussed. Informed consent was obtained. Operative Findings: As below Description of Procedure: The patient was brought to the operating room, and after induction of general anesthesia was placed in the beachchair position. The bony prominences were appropriately padded. The right upper extremity was prepped and draped in normal fashion. A deltopectoral incision was then made lateral to the coracoid process extending approximately 12 cm. The skin was incised sharply. Subcutaneous tissues were divided bluntly. Electrocautery was used for hemostasis. The deltopectoral interval was identified and the cephalic vein gently retracted laterally with the deltoid. Subdeltoid adhesions were bluntly dissected. A self-retaining retractor was placed. The clavipectoral fascia was opened and the conjoined tendon gently retracted medially. The upper one third of the pectoralis major was released to help facilitate exposure. The biceps was identified and the sheath was opened. The rotator interval was opened. The biceps was tenotomized and allowed to retract distally. A subscapularis peel was performed. This was then tagged with #2 Ethibond suture. The humeral head was then exposed releasing the capsule off the humeral neck. The shoulder was gently dislocated. A starting hole was made in the head in line with the humeral shaft. The shaft was reamed by hand up to 8 mm. There is good distal chatter. The cutting guide was placed planning on a cut flush with the rotator cuff insertion and 30 of retroversion. The cutting block was pinned in place. The humeral head cut was then made. This measured most appropriately at 44 x 21 mm. Residual inferior osteophytes were carefully removed flush with the [place] cortical bone. A posterior glenoid retractor was placed. The glenoid was then exposed releasing the labrum from the 12-6 o'clock position. Residual labral tissue was removed. The glenoid sized most appropriate 44 mm. A guidewire was then inserted planning on the appropriate version. The glenoid was reamed down to a bleeding bony surface. The central pedicle was drilled. The alignment guide was placed in the peripheral peg holes drilled. The trial size 44 mm glenoid was placed and was fully seated. There was good anterior to posterior and inferior to superior fit. The trial component was removed. Pulsatile lavage was utilized. The bony surface was dried. The peripheral peg holes were then pressurized with cement utilizing a syringe. Excess cement was removed. A central peg glenoid was then placed and was fully seated. This was gently impacted. This was held in place until the cement had sufficiently hardened. Attention was then paid again towards preparing the proximal humerus. The appropriate broach was placed in 30 of retroversion and was fully seated. An eccentric 44 x 21 mm humeral head was placed. The shoulder was gently reduced. It was taken through a range of motion. It was felt to be stable in flexion and extension with internal and external rotation. I felt there was adequate jew of soft tissue tension. The shoulder was gently dislocated. The trial components were then removed. A #2 Ethibond was placed laterally for reattachment of the lesser tuberosity. The humeral stem was inserted in 30 of retroversion and was fully seated. There was good rotational stability. The eccentric 44 x 21 mm humeral head was gently impacted. The shoulder was then gently reduced and taken through range of motion and was felt to be stable. Pulsatile lavage was utilized. The subscapularis reattached utilizing #2 Ethibond suture. The rotator interval was closed with #2 Ethibond suture. She had minimal drainage at this point therefore a deep drain was not placed. The deltopectoral interval was closed with interrupted 2-0 Vicryl sutures. The subcu tissues were reapproximated with interrupted 2-0 Vicryl sutures. The skin was reprepped with 3-0 subcuticular Prolene suture. Steri-Strips were applied. A sterile dressing was applied in addition to a sling. The patient was then awoken from general anesthesia and transferred to recovery room in good condition. Blood loss was estimated at 150 mL. No complications were incurred. Sponge and needle counts were correct at the end the case. Ludin ROMERO assisted in the major components the case to include positioning, exposure, resection, implantation, and closure.
[2024-06-05 14:57] VITALS: RESP 16
[2024-06-05 15:18] LABS: Glucose,Whole Blood 140 mg/dL (70-110)
--- NOTE | 2024-06-05 15:21 | XR ---
EXAMINATION TYPE: XR shoulder limited RT DATE OF EXAM: 06/05/2024 3:19 PM CLINICAL INDICATION:Female, 64 years old with history of Status post right total shoulder arthroplast y; COMPARISON: TECHNIQUE: XR shoulder limited RT; examined in AP, internally rotated and scapular Y projections. FINDINGS: Shoulder arthroplasty with hardware intact. Subcutaneous lucencies compatible with recent surgery. No evidence for fracture. Hardware appears in tact The remaining portions of the visualized chest are unremarkable. IMPRESSION: Post shoulder arthroplasty, no evidence for immediate postop complication.
[2024-06-05] MEDS: HYDROmorphone 0.5 MG/0.5 ML SYRINGE IVP PRN ×2 (15:34→16:04)
[2024-06-05 18:01] LABS: Basophils % (A) 0 %; Eosinophils % (A) 0 %; HCT 36.4 % (34.0-46.0); HGB 11.5 gm/dL (11.4-16.0); Hypochromasia Moderate; Lymphocytes # (A) 0.7 k/uL (1.0-4.8); Lymphocytes % (A) 5 %; MCH 30.7 pg (25.0-35.0); MCHC 31.5 g/dL (31.0-37.0); MCV 97.3 fL (80.0-100.0); Mean Platelet Volume 6.8; Monocytes # (A) 0.2 k/uL (0-1.0); Monocytes % (A) 2 %; Neutrophils # (A) 12.3 k/uL (1.3-7.7); Neutrophils % (A) 93 %; Platelet Count 223 k/uL (150-450); RBC 3.74 m/uL (3.80-5.40); RDW 12.5 % (11.5-15.5); WBC 13.3 k/uL (3.8-10.6)
[2024-06-05] MEDS: HYDROcodone/APAP 5-325MG 1 EACH TAB PO PRN (20:12)
[2024-06-06] MEDS: LEVOTHYROXINE 88 MCG TAB PO SCH (06:32)
[2024-06-06 07:23] VITALS: BP 122/69; PULSE 57; TEMP 98.1
[2024-06-06] MEDS: CHOLECALCIFEROL 125 MCG (5000 IU) TABLET PO SCH (08:10)
[2024-06-06] MEDS: LORATADINE-PSEUDOEPH 5-120 MG 1 EACH TAB.ER.12H PO SCH (08:10)
[2024-06-06] MEDS: ASPIRIN 325 MG TAB PO SCH (08:10)
[2024-06-06] MEDS: MULTIVITAMINS, THERA 1 EACH TAB PO SCH (08:10)
--- NOTE | 2024-06-06 10:31 | P.DS ---
Providers Date of admission: 06/05/2024 Expected date of discharge: 06/06/24 Attending physician: Brandt Adame Consults: 06/05/24 14:34 Consult Physician Routine Consulting Provider: Bacilio Jones Consult Reason/Comments: medical management Status post right total shoulder arthroplasty Do you want consulting provider notified?: Yes Primary care physician: Sunny Anderson [facility] Hospital Course: Date of admission: 06/05/2024 Date of discharge: 06/06/2024 Admission diagnosis: Right severe glenohumeral joint osteoarthrosis Discharge diagnosis: Same Attending physician: Dr. Adame Surgical procedures: Right total shoulder arthroplasty Brief history: Patient is a 64-year-old female with a history of progressive primary right severe glenohumeral joint osteoarthrosis. At this point patient has failed conservative treatment measures and has opted to proceed with a elective right total shoulder arthroplasty. Hospital course: Details of patient's surgery can be found in operative report. Patient tolerated the procedure well and was subsequently transported to orthopedic floor. Patient's orthopeidc and medical care was provided daily. Patient had daily laboratory tests performed for evaluation of overall blood counts. Patient had daily physical therapy to include strengthening range of motion as well as education with walker ambulation. Patient was treated with aspirin for their postoperative DVT prophylaxis during their inpatient stay. Patient was noted to have a relatively uneventful postoperative course. Patient reported satisfactory pain control with oral pain medications by postoperative day 1. Patient showed satisfactory progress with physical therapy. Patient moved steadily through the program and had no difficulty meeting the goals by postoperative day 1. Given patient's otherwise satisfactory course and having met physical therapy goals, plan is to discharge patient home on postoperative day 1. Discharge condition/disposition: Patient will be discharged home in stable condition. Discharge medications: Instructions are given on resumption of patient's normal daily medications per primary care recommendation, in addition patient will be prescribed [place]; patient to take aspirin 81 mg twice daily x 30 days at home for DVT prophylaxis. Discharge instructions: 1. Wound care and infection precautions, keep incision dry and covered while s howering, no lotions, creams, moisturizers. No soaking, tubs, pools, hottubs. Do not scrub over the incision. 2. Nonweightbearing right upper extremity until follow-up. 3. Ice when necessary. Do not exceed 20 minutes per hour with ice pack. 4. Utilize sling to right upper extremity until seen at first follow up appointment. 5. Nursing care. 6. Physical therapy 7. Pain meds and anticoagulants per prescription. 8. Pain medication has potential to cause constipation. Increase oral fluid and fiber intake. Contact primary care provider if you have not had a bowel movement within 48 hours after discharge 9. No anti-inflammatory medication until discussed at first post operative visit, this including Motrin, Aleve, Mobic, Diclofenac. 10. Follow up in office at 2 weeks postop with Robb Oakes PA-C / Ludin Martinez PA-C 11. Follow up with your primary care doctor 7-10 days after discharge. 12. Contact [facility] with any questions, . Assessment: Right severe glenohumeral joint osteoarthrosis Procedures: Right total shoulder arthroplasty Patient Condition at Discharge: Good Plan - Discharge Summary Discharge Rx Participant: Yes New Discharge Prescriptions: No Action Meloxicam [Mobic] 15 mg PO HS dilTIAZem HCL [dilTIAZem HCL 24Hr ER (LA)] 120 mg PO HS Furosemide [Lasix] 20 mg PO DAILY Loratadine-Pseudoeph 10-240 mg [Claritin-D 24 Hour] 1 tab PO DAILY Cholecalciferol (Vitamin D3) [Vitamin D3] 125 mcg PO Q2D Levothyroxine Sodium [Euthyrox] 88 mcg PO DAILY Multivitamins, Thera [Multivitamin (formulary)] 1 tab PO DAILY Discharge Medication List Meloxicam [Mobic] 15 mg PO HS 03/08/21 [History] Levothyroxine Sodium [Euthyrox] 88 mcg PO DAILY 03/16/22 [History] Cholecalciferol (Vitamin D3) [Vitamin D3] 125 mcg PO Q2D 06/01/24 [History] Furosemide [Lasix] 20 mg PO DAILY 06/01/24 [History] Loratadine-Pseudoeph 10-240 mg [Claritin-D 24 Hour] 1 tab PO DAILY 06/01/24 [History] Multivitamins, Thera [Multivitamin (formulary)] 1 tab PO DAILY 06/01/24 [History] dilTIAZem HCL [dilTIAZem HCL 24Hr ER (LA)] 120 mg PO HS 06/01/24 [History] Follow up Appointment(s)/Referral(s): Ludin Martinez, PAC [PHYSICIAN FIRMWARE TEST ENGINEER] - 06/21/24 10:00 am Patient Instructions/Handouts: Shoulder Arthroplasty (DC), Shoulder Arthroplasty (GEN) Activity/Diet/Wound Care/Special Instructions: Orthopedic Discharge Instructions: 1. Wound care and infection precautions, keep incision dry and covered while showering, no lotions, creams, moisturizers. No soaking, pools, hot tubs. Do not scrub over incision. 2. [id number] right upper extremity until follow-up. 3. Ice when necessary. Do not exceed 20 minutes per hour with ice pack. 4. Utilize sling to Right upper extremity until seen at first follow up appointment. 5. Pain meds and anticoagulants per prescription. 6. Pain medication has potential to cause constipation. Increase oral fluid and fiber intake. Contact primary care provider if you have not had a bowel movement within 48 hours after discharge. 7. No anti-inflammatory medication until discussed at first post operative visit, this including Motrin, Aleve, Mobic, Diclofenac. 8. Follow up in office at 2 weeks postop with Robb Oakes PA-C / Ludin Martinez PA-C 9. Follow up with your primary care doctor 7-10 days after discharge. 10. Contact [facility] with any questions, . Keep incision clean, dry, intact. While showering, cover fusion tape with Saran wrap. Keep fusion tape on until follow-up appointment in office in 2 weeks.
--- NOTE | 2024-06-06 10:36 | P.PN ---
Subjective Progress Note Date: 06/06/24 Principal diagnosis: Severe right glenohumeral joint osteoarthrosis Patient was seen at bedside this morning lying in the semi-, position with sling present to right upper extremity and bulky dressing present over right shoulder. Patient says pain is well-controlled. She says she has been up walking around the room since surgery yesterday without issue. She says she has urinated several times since surgery. Patient says she has not had a bowel movement yet, however, patient says she has been passing gas. Patient denies chest pain, fever, shortness of breath, nausea, vomiting, change in vision, loss of bowel/bladder control. Objective - Vital Signs Vital signs: Vital Signs Temp 98.1 F 06/06/24 06:50 Pulse 57 L 06/06/24 06:50 Resp 16 06/06/24 06:50 BP 122/69 06/06/24 06:50 Pulse Ox 96 06/06/24 06:50 FiO2 Intake & Output 06/05/24 06/06/24 06/06/24 18:59 06:59 18:59 Intake Total 1950 Output Total 150 Balance 1801 Weight 89.5 kg Intake: IV 1950 Output: Estimated Blood Loss 150 Other: Voiding Method Toilet # Voids 1 2 - Exam Right shoulder: Incision is clean, dry, and intact. The bulky dressing is in good condition. There is minimal soft tissue swelling and ecchymosis surrounding the medial and lateral aspects of the incision. Calf is soft, no tenderness with palpation. Plantar flexion, dorsiflexion, EHL, FHL are intact. Sensory exam to light touch throughout the extremity is intact, dorsal pedis pulses 2+. - Labs CBC & Chem 7: 06/05/24 17:44 Labs: Abnormal Lab Results - Last 24 Hours (Table) 06/05/24 06/05/24 06/05/24 Range/Units 11:36 15:16 17:44 WBC 13.3 H (3.8-10.6) k/uL RBC 3.74 L (3.80-5.40) m/uL Neutrophils # 12.3 H (1.3-7.7) k/uL Lymphocytes # 0.7 L (1.0-4.8) k/uL POC Glucose (mg/dL) 130 H 140 H (70-110) mg/dL Assessment and Plan Assessment: 1. Right severe glenohumeral joint osteoarthrosis -Postop day 1 status post right total shoulder arthroplasty Plan: 1. Right severe glenohumeral joint osteoarthrosis -right total shoulder arthroplasty performed yesterday, 06/05/2024. Patient stable at bedside this morning with sling present to right upper extremity and dressing present over right shoulder. Pain medication as needed. Nonweightbearing to the right upper extremity. Maintain in sling. Discharge home today. 2. Appreciate medical management 3. Pain management -Tye 4. DVT ppx - aspirin 5. GI ppx - senna 6. PT/OT -nonweightbearing right upper extremity; maintain right upper extremity in sling 7. Encourage incentive spirometer use 8. Discharge planning -discharge home today Time with Patient: Less than 30
--- NOTE | 2024-06-06 12:58 | P.ANPRN ---
Procedure Note - Anesthesia - Nerve Block Performed Right Interscalene Single Time Out Performed: Yes Date of Procedure: 06/05/24 Procedure Start Time: : Procedure Stop Time: : Location of Patient: PreOp Indication: Acute Post-Operative Pain, Requested by Surgeon Sedation Type: Sedate with meaningful contact maintained Preparation: Sterile Prep Position: Supine Needle Types: Pajunk Needle Gauge: 21 Ultrasound used to visualize needle placement: Yes Ultrasound used to observe medication spread: Yes Blood Aspirated: No Pain Paresthesia on Injection Noted: No Resistance on Injection: Normal Image Stored and Saved: Yes Events: Uneventful and Well Tolerated (ropi .5% 20cc plus dexamethasone 4mg)
--- NOTE | 2024-06-06 13:54 | CONS ---
CONSULTATION REASON FOR CONSULTATION: Advice regarding DJD and other medical issues requested by Orthopedics. HISTORY OF PRESENT ILLNESS: This is a 64-year-old woman with a past medical history of Shyla's, DJD, fibromyalgia, being followed by Dr. Sunny Anderson. The patient underwent right shoulder arthroplasty. There is no history of any fever or rigors. No history of headache or loss of consciousness. PAST MEDICAL HISTORY: Reviewed include fibromyalgia, GERD, Shyla's, rest of the history and rest of the chart is also reviewed. HOME MEDICATIONS: Reviewed include Claritin-D, dose and rest of medications reviewed. ALLERGIES: Amoxicillin. FAMILY HISTORY: History of DVT and PE in the family. SOCIAL HISTORY: History of THC. REVIEW OF SYSTEMS: A 14-point review is negative except as mentioned. PHYSICAL EXAMINATION: VITAL SIGNS: Pulse is 57, blood pressure 110/60, respirations 16. HEENT: Conjunctivae normal. NECK: No jugular venous distention. CARDIOVASCULAR: S1, S2. RESPIRATIONS: Diminished at the bases. No rhonchi, no crackles. ABDOMEN: Soft, nontender. LEGS: No edema. No swelling. NERVOUS SYSTEM: Nonfocal. EXTREMITIES: Right shoulder arthroplasty. LABS: WBC 13.2. ASSESSMENT: 1. Status post right shoulder arthroplasty. 2. Elevated WBC, possibly reactive. 3. Elevated random glucose. 4. Fibromyalgia. 5. Degenerative joint disease. 6. History of [place] palsy due to COVID vaccine. 7. Family history of DVT and PE. RECOMMENDATIONS: This 64-year-old woman presented after surgery. I would recommend to continue the current management, continue symptomatic treatment. DVT prophylaxis. Recommended incentive spirometry. Recommended close followup with Dr. Sunny Anderson after discharge. Rest of recommendations per Orthopedic Surgery. MMODL / IJN: [id number] /
== END 2024-06-06 13:13 | disposition home or self-care (01) ==
LOC: OR 10:44 → 4SSUR 14:41 → OR 06-06 13:13
PROVIDERS: ATTEND Orthopaedic Surgery
DX: M19.011 Primary osteoarthritis, right shoulder (principal); G89.18 Other acute postprocedural pain; E78.5 Hyperlipidemia, unspecified; K21.9 Gastro-esophageal reflux disease without esophagitis; E06.3 Autoimmune thyroiditis; M79.7 Fibromyalgia; Z88.0 Allergy status to penicillin; Z88.6 Allergy status to analgesic agent; Z88.7 Allergy status to serum and vaccine; Z79.1 Long term (current) use of non-steroidal anti-inflammatories (NSAID); Z79.890 Hormone replacement therapy; Z79.899 Other long term (current) drug therapy
CPT/HCPCS: 64415; 85025; 73020; 23472; C1776; J2250; J1100; J0690 ×3; J2405; J1170

== ENCOUNTER → 2024-10-16 | Outpatient (CLI) | payer MEDICARE ==
--- NOTE | 2024-10-16 13:12 | MR ---
EXAMINATION TYPE: MR lumbar spine wo con DATE OF EXAM: 10/16/2024 11:40 AM COMPARISON: 07/27/2022. CLINICAL INDICATION: Female, 64 years old with history of M62.81, M54.50, Lower back pain, LLE radic, hx surgery. TECHNIQUE: Multi planar, multi sequence imaging was performed utilizing: T1-weighted, T2-weighted, a nd turbo inversion recovery imaging of the lumbar spine. IV Contrast: (None, if empty) FINDINGS: Alignment: The lumbar vertebral bodies have preserved heights. Postsurgical alignment with retrolisth esis of L3 and L4. The spinal canal is patent. Cord: The conus medullaris and the distal spinal cord appear unremarkable with regards to their signa l intensity and morphology. Bones/Discs: Interval fixation hardware changes at L4, L5, S1 present with suspected bilateral sacroi liac joint fixation screws partially visualized susceptibility artifact. Surgical bed fluid collectio n does not definitely indicate with the thecal sac posteriorly representing some seroma measuring 40 x 23 x 31 mm. Discectomy at L4-L5 and L5-S1 thought to be present with susceptibility artifact. T12-L1: No evidence of significant spinal canal stenosis or neural foraminal stenosis. L1-L2: No evidence of significant spinal canal stenosis or neural foraminal stenosis. L2-L3: Disc bulge and facet joint arthropathy result in mild spinal canal and moderate bilateral neur al foraminal stenosis. L3-L4: Retrolisthesis with patent spinal canal. Disc bulge and facet joint arthropathy result in mild spinal canal and moderate bilateral neural foraminal stenosis. L4-L5: Susceptibility artifact limits evaluation at this level. The spinal canal and neural foramen a ppear patent. L5-S1: Susceptibility artifact limits evaluation at this level. The spinal canal and neural foramen a ppear patent. No significant spinal canal or neural foraminal stenosis in the remainder of the visualized levels. Other findings: Scattered colonic diverticula. IMPRESSION: 1. No definitive evidence of disc herniation or significant spinal canal stenosis. 2. Moderate disc degeneration with associated osteoarthritic changes. Neural foraminal stenosis wors e at L2-L3 and L3-L4 with moderate bilateral neural foraminal stenosis. 3. Interval fixation hardware changes at L4, L5, S1 present with suspected bilateral sacroiliac join t fixation screws partially visualized susceptibility artifact. 4. Surgical bed fluid collection likely representing a seroma measuring 40 x 23 x 31 mm. [facility], , 10/16/2024 1:10 PM
== END | disposition home or self-care (01) ==
LOC: RADMRIMAIN 10:48
PROVIDERS: ATTEND Orthopaedic Surgery
DX: M51.360 Other intervertebral disc degeneration, lumbar region with discogenic back pain only (principal); M48.061 Spinal stenosis, lumbar region without neurogenic claudication; M62.81 Muscle weakness (generalized)
CPT/HCPCS: 72148

== ENCOUNTER → 2024-10-25 | Outpatient (CLI) | payer MEDICARE ==
--- NOTE | 2024-10-25 08:03 | MM ---
Reason for Exam: Additional evaluation requested from prior study. Last mammogram was performed 5 year(s) and 0 month(s) ago. Patient History: Menarche at age 11. First Full-Term at age 17. Postmenopausal. 1996, Benign Excisional Biopsy on the right side. Maternal cousin had breast cancer. Maternal aunt had breast cancer. Risk Values: Ashleigh 5 year model risk: 1.4%. NCI Lifetime model risk: 5.4%. Prior Study Comparison: 10/18/2018 Bilateral Diagnostic Mammogram, [facility]. 10/22/2019 Bilateral Screening Mammogram, [facility]. Tissue Density: The breasts are heterogeneously dense, which may obscure small masses. Findings: Analyzed By CAD. No evidence for mass or distortion. No suspicious microcalcifications present. Overall Assessment: Negative, BI-RAD 1 Management: Screening Mammogram of both breasts in 1 year. . Results were given to the patient verbally at the time of exam. Patient should continue monthly self-breast exams. A clinical breast exam by your physician is recommended on an annual basis. This exam should not preclude additional follow-up of suspicious palpable abnormalities. Note on Ashleigh scores and lifetime risk: 1. A Ashleigh score greater than 3% is considered moderate risk. If this is the case, consider specialist referral to assess eligibility for a risk reducing agent. 2. If overall lifetime risk for the development of breast cancer is 20% or higher, the patient may qualify for future screening with alternating mammogram and breast MRI. [facility], , 10/25/2024 7:57 AM. Electronically signed and approved by: Fabiano Cook M.D. [facility]
== END | disposition home or self-care (01) ==
LOC: RADMAMWWP 07:33
PROVIDERS: ATTEND Family Medicine
DX: N64.4 Mastodynia (principal); Z78.0 Asymptomatic menopausal state; Z80.3 Family history of malignant neoplasm of breast; R92.333 Mammographic heterogeneous density, bilateral breasts
CPT/HCPCS: 77062; 77066

== ENCOUNTER → 2025-01-09 | Outpatient (CLI) | payer MEDICARE | END | disposition home or self-care (01) | LOC: LABPAT 12:36 | PROVIDERS: ATTEND Orthopaedic Surgery | DX: Z01.812 Encounter for preprocedural laboratory examination (principal); M48.061 Spinal stenosis, lumbar region without neurogenic claudication; Z22.322 Carrier or suspected carrier of Methicillin resistant Staphylococcus aureus | CPT/HCPCS: 36415; 86850; 86900; 86901; 87070 ==

== ENCOUNTER 2025-01-15 07:30 | Inpatient (IN) | payer MEDICARE ==
--- NOTE | 2025-01-15 06:13 | P.HPOR ---
"History of Present Illness H&P Date: 01/09/25 .D:Date: 01/09/25 : 04:41pm .T:Title: *PRE-OP H1 [facility] [address] [place] [id number]| PROVIDER: ERIC BURRELL DO CLINICAL SUMMARY: *Ms. 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 Patient demonstrates bilateral lower extremity weakness, neurogenic claudication, and new onset bladder symptoms. MRI reveals moderate disc degeneration with osteoarthritic changes and moderate bilateral neural foraminal stenosis at L2-L3 and L3-L4, with existing hardware at L4-S1. Conservative management with NSAIDs (Ibuprofen, Tylenol, Mobic) has failed to provide relief. After thorough discussion of risks and benefits, patient has consented to Revision L2-Pelvis decompression and fusion. Pre-operative clearance has been requested from PCP. Patient is scheduled for surgical follow- up post-operatively to monitor recovery progress and neurological status. BMI: 39.25 kg/m2, BP: 130/80, independently ambulatory.Ms. 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 Patient demonstrates bilateral lower extremity weakness, neurogenic claudication, and new onset bladder symptoms. MRI reveals moderate disc degeneration with osteoarthritic changes and moderate bilateral neural foraminal stenosis at L2-L3 and L3-L4, with existing hardware at L4-S1. Conservative management with NSAIDs (Ibuprofen, Tylenol, Mobic) has failed to provide relief. After thorough discussion of risks and benefits, patient has consented to Revision L2-Pelvis decompression and fusion. Pre-operative clearance has been requested from PCP. Patient is scheduled for surgical follow-up post-operatively to monitor recovery progress and neurological status. BMI: 39.25 kg/m2, BP: 130/80, independently ambulatory. DEMOGRAPHICS: Age: 64 year Height: 5' Weight: 201 lbs BP:130/80 BMI: 39.25 kg/m2 Occupation: *Retired CC: *lumbar pain VAS: * 5 HISTORY: Ms. Joseph- presents to the office today, 01/09/25, for *a pre-operative appointment preceding her Revision L2-Pelvis decompression and fusion. Patient reports pain down the midline of the spine that radiates across the low back. Patient is complaining of increasing pain and weakness in her b/l LE at this time along with neurogenic claudication and issues related to this.She is still recovering from her fall off of a ladder in April of this year, which caused her significant pain in her hip and back, but she seemed to recover well at first, but now she is having more issues and she is citing this as the event that everything seemed to stem from. She states increasing buttock pain and leg pain. No perineal numbness/tingling but she does have some bladder issues starting. No overt incontinence or retention, but feels different than normal. She denies any other trauma or issues at this time. States it seems to be above where she had her fusion before. Patient is currently taking Ibuprofen, Tylenol, and Mobic for her symptoms. She ambulates independently. * Patient denies any f/c/sob/cp, perineal numbness or tingling, bowel, or bladd er incontinence/retention. * The patients past social, medical, family, surgical history, as well as review of systems, have been reviewed. Please refer to the History and Physical form that has been scanned into our electronic medical record system. * 16 points review of systems completed and as stated in HPI, all other systems reviewed are negative. PAST TREATMENTS: PAST IMAGING: -YES, xray and MRI - TRAUMA RELATED: -YES, fell off a ladder - WORK RELATED: -NO - PT IN LAST 6 MONTHS: -NO - PHYSICIAN DIRECTED HOME EXERCISE PROGRAM: -YES - ACTIVITY MODIFICATION: -YES - MEDICATIONS: -YES, Ibuprofen, Tylenol, and Mobic - ALTERNATIVE INTERVENTIONS (CHIROPRACTIC, ACUPUNCTURE, MASSAGE, RICE): -YES - BRACING: -NO - INJECTIONS (ABDIEL, TF, RFA): -NO MEDICAL HISTORY: Past Medical History: REVIEWED STATED IN CHART Past Surgical History: REVIEWED STATED IN CHART Social History: REVIEWED STATED IN CHART SMOKING: Never smoker ETOH: None SUBSTANCES: None Family History: REVIEWED STATED IN CHART P1 Current Medications: Rx: LEVOTHYROXINE SODIUM 88MCG ORAL Tablet, Ref: 11 Instructions: Take 1 Tablet ORAL DAILY. Rx: VITAMIN D [id number] ORAL , Ref: 0 Instructions: Take ORAL once a week. Rx: ibuprofen Ref: 0 Instructions: prn Rx: Claritin 10 mg tablet Ref: 0 Instructions: every other day Rx: furosemide 20 mg tablet Ref: 0 Instructions: take 1 tablet (20 mg) by oral route once daily Rx: dilTIAZem 120 mg tablet Ref: 0 Instructions: take 1 tablet (120 mg) by oral route 1 times per day Rx: meloxicam 15 mg tablet Ref: 0 Instructions: take 1 tablet (15 mg) by oral route once daily Rx: multivitamin tablet Ref: 0 Rx: TylenoL Ref: 0 Instructions: as needed P1 PHYSICAL EXAM: General: AOX3, NAD, Well hydrate, well nourished, in no acute distress HEENT: No lumps or masses Extremities: No color changes, no pooling INTEGUMENT: Appearance: Normal color and turgor Surgical Incisions: healed Hairy Patches: ABSENT Dorsal Skin Dimples: Normal [employer] spots: ABSENT PALPATION: TTP Midline: YES Paracervical: NO Parathoracic: NO Paralumbar: YES SIJ TESTING (Bryson's, FABER4, Compression, Distraction, Thigh Thrust, Hip Thrust): TESTED * POSITIVE FINDINGS: NEGATIVE FINDINGS: Bryson's, FABER4, Compression, Distraction, Thigh Thrust, Hip Thrust POSTURAL BALANCE: Coronal: BALANCED Sagittal: BALANCED Shoulder height: LEVEL Pelvic Girdle: LEVEL ROM AND APPEARANCE: Neck: UNRESTRICTED Lumbar: RESTRICTED Shoulders: Symmetrical Hips: Symmetrical Knees: Symmetrical Hands: Symmetrical Feet: Symmetrical VASCULAR STATUS: PALPABLE PULSES B/L UE AND LE 2/4 RAD/ULNAR/DP/PT Edema: NONE NEUROLOGICAL EXAMINATION: Mental Status: Awake, alert, fully oriented with normal attention, concentration, and memory. Fluent appropriate speech. CRANIAL NERVES: I: Olfactory not assessed. II: Visual acuity normal, no visual field deficit noted with confrontation. III, IV: Normal pupillary reflexes & intact extraocular movements without nystagmus. V, : Intact symmetrical facial sensation. VII: Intact symmetrical facial motor movement: Hearing intact. IX, X: Intact gag, swallow, & normal voice. XI: Sternocleidomastoid, trapezius function intact. XII: Tongue midline with normal movements. TENSIONING: She is also tensioning in her LE b/l in this distribution associated with L3-4 region. * L'HERMITTE'S SIG:NEG SPURLUNG'S SIGN:NEG UPPER EXTREMITY TENSIONING SIGNS: NEG CUBITAL TUNNEL COMPRESSION:NEG TINELS AT WRIST:NEG STRAIGH LEG RAISE:POS CONTRALATERAL STRAIGHT LEG RAISE: NEG MOTOR EXAM (0-5/5, NT) Muscle appearance: Symmetrical, without signs of atrophy or dystrophy UPPER EXTREMITY RIGHT LEFT Shoulder Abduction 5 5 Biceps 5 5 Triceps 5 5 Wrist Extension 5 5 Hand Intrinsics 5 5 Order Runner 5 5 LOWER EXTREMITY RIGHT LEFT Hip Flexion 4 4 Knee Extension 4 4 Knee Flexion 4 4 Dorsiflexion 4 4 Plantarflexion 4- 4- EHL 4- 4 FHL 4 4- REFLEXES (0-4/2, NT): RIGHT LEFT Bicep 2 2 Brachioradialis 2 2 Triceps 2 2 Patellar 1 2 Achilles 1 2 PATHOLOGICAL REFLEXES: RIGHT LEFT ANDRADE'S ABSENT ABSENT CLONUS ABSENT ABSENT BABINSKI ABSENT ABSENT RECTAL TONE: INTACT/NT SENSATION (0-4, NT): Sensation intact to LT and Pain * C5-T1 distribution BUE * L2-S2 distribution BLE *Exceptions below* DERMATOMAL DEFICIT/RADICULAR PATTERN: L2-4 BLE GAIT AND FUNCTIONAL EVALUATION: AMBULATORY AID NONE ROMBERG'S TEST INTACT HAND AND FINGER DEXTERITY INTACT YES DYSDIADOCHOKINESIA EXAM NEG B/L YES TOE/HEEL WALK INTACT WITH GOOD BALANCE NO SQUAT AND RISE W/O ASSISTANCE TO 60 DEG KNEE FLEXION NO SINGLE LEG STANCE NOT ABLE TRENDELENBURG NEG IMAGING: Post operative images taken on 10/03/24 in office are reviewed with pt. AP and Lateral of Lumbar demonstrate hardware in satisfactory position with no evidence of any migration or fracture of the construct. There is noted progressive changes of the L3-4 region with ASD and likely post-traumatic arthritic changes with grade I-II retrolisthesis and fishmouthing at this level that is worse than before. There is more collapse of this levels disc space as well as facet arthrosis and facet hypertrophy. No acute fracture noted however. b/l foraminal stenosis noted which is severe related to this. MRI Date: 10/16/24 Location: [facility] Region: LUMBAR Contrast: N IMAGES ARE REVIEWED WITH THE PATIENT IN OFFICE AND DEMONSTRATE THE FOLLOWING: FINDINGS: No definitive evidence of disc herniation, Moderate disc degeneration with associated osteoarthritic changes. Neural foraminal stenosis worse at L2-L3 and L3-L4 with moderate bilateral neural foraminal stenosis RELATED TO SPONDYLOSIS WITH ADJACENT SEGMENT DISEASE. Interval fixation hardware changes at L4, L5, S1 present with suspected bilateral sacroiliac joint fixation screws partially visualized susceptibility artifact. Fluid collection, seroma likely non compressive. IMPRESSION: It was my pleasure to have seen and examined Shania. I reviewed the patient's clinical syndrome, physical findings, and imaging studies during the appointment today. It is my impression that the patient has a diagnosis of. 1.L2-3 and L3-4 severe adjacent segment disease with severe stenosis 2.Low back pain 3.Lower extremity weakness 4. Status post fall from ladder PLAN: DISCUSSION: -I have discussed with the patient their clinical signs and symptoms, imaging, and treatment options. We have discussed risks, benefits, potential outcomes and natural course as pertains top their issues. The patient understands and would like to proceed as follows below: SURGICAL RECOMMENDATION -Revision L2-Pelvis decompression and fusion THERAPIES - -Cont. with home exercises and home PT exercises as able -Cont. with Heat/Ice as warranted -Cont. with supplementation Vit D, Vit C, Ca2+, High protein diet -OK for massage or other alternative treatment modalities as able. If it exacerbates your sx do not continue ACTIVITY -Recommend walking up to 30 min 2x daily on a flat easy surface with good suppo rt. -WORK STATUS: N/A MEDICATIONS -Take as directed -Cont. home medications as directed by your PCP. Check with your PCP for any medication interactions or issues if needed. IMAGING -N/A INJECTIONS -N/A Spine Surgery Risk Review Ms. Joseph is presenting for evaluation of lumbar pain. It was my pleasure to have seen and examined Ms. Joseph. In our visit today we have had a chance to go over subjective complaints, physical examination findings and treatments including the natural course history without intervention and various interventional options. The patients imaging demonstrates: Post operative images taken on 10/03/24 in office are reviewed with pt. AP and Lateral of Lumbar demonstrate hardware in satisfactory position with no evidence of any migration or fracture of the construct. There is noted progressive changes of the L3-4 region with ASD and likely post-traumatic arthritic changes with grade I-II retrolisthesis and fishmouthing at this level that is worse than before. There is more collapse of this levels disc space as well as facet arthrosis and facet hypertrophy. No acute fracture noted however. b/l foraminal stenosis noted which is severe related to this. MRI Date: 10/16/24 Location: [facility] Region: LUMBAR Contrast: N IMAGES ARE REVIEWED WITH THE PATIENT IN OFFICE AND DEMONSTRATE THE FOLLOWING: FINDINGS: No definitive evidence of disc herniation, Moderate disc degeneration with associated osteoarthritic changes. Neural foraminal stenosis worse at L2-L3 and L3-L4 with moderate bilateral neural foraminal stenosis RELATED TO SPONDYLOSIS WITH ADJACENT SEGMENT DISEASE. Interval fixation hardware changes at L4, L5, S1 present with suspected bilateral sacroiliac joint fixation screws partially visualized susceptibility artifact. Fluid collection, seroma likely non compressive. On physical exam, Ms. Joseph demonstrates: Patient reports pain down the midline of the spine that radiates across the low back. Patient is complaining of increasing pain and weakness in her b/l LE at this time along with neurogenic claudication and issues related to this.She is still recovering from her fall off of a ladder in April of this year, which caused her significant pain in her hip and back, but she seemed to recover well at first, but now she is having more issues and she is citing this as the event that everything seemed to stem from. She states increasing buttock pain and leg pain. No perineal numbness/tingling but she does have some bladder issues starting. No overt incontinence or retention, but feels different than normal. She denies any other trauma or issues at this time. States it seems to be above where she had her fusion before. Patient is currently taking Ibuprofen, Tylenol, and Mobic for her symptoms. She ambulates independently. I have explained to the patient that as their condition progresses it will cause further neurological deficits and eventual paralysis. Based on the patients imaging, physical exam, and the rapid progression and disabling nature of their symptoms, at this time I recommend surgery in the form of a: Revision L2-Pelvis decompression and fusion. I discussed the risk and benefits of this procedure at length with Ms. Joseph. The patient [significant other] agreed to considered pursuing the procedure abovementioned. Prior to surgery, she should follow up with her PCP (Cardio, ID, IM etc) for clearance. Questions were invited and answered, and the patient wishes to proceed as outlined below. Currently, I am recommendin. Revision L2-Pelvis decompression and fusion 2.Follow up with PCP for surgical clearance 3.Review of surgical risks and benefits as well as an educational packet on the proposed surgical procedure. Risks: All surgical procedures come with inherent risks, including those related to positioning, anesthesia, intraoperative findings, and postoperative complications. It is important to understand that surgery does not come with any guarantee of a successful outcome as complications and adverse events are always possible. The patient was given a handout in office today discussing the surgical procedure and risks associated with the intervention, both of which were discussed with the patient. These risks include but are not limited to the following: * Experiencing same, different or even worse symptoms in back, neck, arms, or legs compared to before surgery. Requiring further surgery or other forms of treatment presently or at some time in the future at same or other levels of the intended spine surgery. On an extreme but fortunately relatively rare basis severe complication such as blindness, stroke, heart attack, temporary and/or permanent nerve injury, paralysis, coma, or may occur, sometimes without known explanation. Surgical complications may include but are not limited to risk of infection, fluid accumulation in the surgical dissection site, including a seroma or hematoma, that requires additional surgery, wound drainage, bleeding, new numbness or weakness, vision changes/loss, spinal fluid leakage, non-healing and/or infected incision, headaches, difficulty or inability to swallow, hoarseness, hemopneumothorax, pneumothorax, impotence, retrograde ejaculation, vaginal dryness; injury to nerves, spinal cord, blood vessels, lymphatics or other vital organs (i.e., bowel injury, injury to the great vessels); heterotopic bone formation; complications related to the hardware such as screws, rods, cages including misplaced hardware, device failure, instrumentation at the wrong spine level, hardware fracture/breakage, or hardware loosening; vertebral failure of the spinal column above or below the newly placed hardware; retained surgical instrumentations or devices and the need for further surgery. * Medical risks of the planned spine surgery include but are not limited to generalized Infections to the whole body or local areas outside of the surgical site (sepsis), heart attack, bleeding, anaphylaxis, meningitis, seizure, epilepsy, hearing loss, burn johnson, laceration of the head or other areas of the body, bruising, hypersensitivity of the skin, bladder over distension; allergic reaction; shoulder injury related to positioning; fat, blood and air clots to other areas of the body like heart, lungs, brain; fail ure of internal organs such as lungs, kidneys, liver and excessive bleeding. If blood transfusions are necessary, note that transfusions may cause intolerance reactions such as anaphylaxis or other complex reactions. Despite best efforts, the results of spine surgery might not heal in terms of bone, soft tissues such as skin, fascia, ligaments, and joints. Additionally, in order to achieve best possible results, spine surgery may be carried out beyond the initially planned levels and involve decompression, fusion including insertion of hardware at levels other than the original intended area of surgical interest change some portions of the procedure in order to ensure the best possible outcomes. With spine surgery and spinal fusion, there are different off label uses of instrumentation (devices, implants and hardware) as well as biological substances (bone morphogenic proteins, demineralized bone matrix) as well as using extra bone from allograft sources (i.e. cadaver bone) or autograft (iliac crest bone, ribs, or the spine itself). The patient has been given information about these practices and their inherent risks and benefits. [facility] is an educational center that serves as a training facility for neurosurgical and orthopedic ROOM SERVICE FOOD SERVICE ATTENDANT and Nursing students. Physician assistants are medically trained surgical providers who function in the outpatient, inpatient, and operating room setting under the direct supervision of the attending surgeon. [facility] has multiple operating rooms with single and overlapping rooms running daily. They currently function under the required guidelines as produced by the [facility] Finance Committee with regards to the overlapping rooms and will continue to comply with changes to this policy as they occur. The requirements include and are complied with as follows: (1) the critical portions of the overlapping rooms will not occur at the same time, (2) the attending physician will be physically present during the critical portions of the procedure and immediately available during the entire case, and (3) a back-up attending is designated should the primary attending not be immediately available. The patient has had a chance to review all the listed information, has been given print outs detailing this information, and has had all his/her questions answered to their satisfaction. It was my pleasure to have seen and examined Ms. Joseph. In our visit today we have had a chance to go over my understanding of our patient's current condition, the natural course history without intervention and various inter ventional options. Questions were invited and answered, and the patient wishes to proceed as outlined above. I have seen and examined the patient for 25 minutes and we have spent more than 50% of the time in repeat and detailed counseling about the patient's condition, its natural course history with out and as much as can be predicted with surgery and re-review of various surgical treatment options. In conclusion, Ms. Joseph requested we proceed with the above suggested surgery and are willing to accept risks and limitations of the suggested surgery as nature of the disease process and our best attempts at treatment for the condition. Medical Necessity: Ms. Joseph, a 64-year-old female, demonstrates clear medical necessity for surgical intervention due to severe adjacent segment disease at L2-3 and L3-4 with significant stenosis. Following a fall from a ladder in April 2024, she has experienced progressive neurological symptoms including bilateral lower extremi ty weakness (4/5 strength bilaterally), neurogenic claudication, and new onset bladder symptoms. Her condition has failed to improve with conservative measures including NSAIDs and activity modification. Post-operative imaging reveals progressive changes at L3-4 with post-traumatic arthritic changes, grade I-II retrolisthesis, and severe bilateral foraminal stenosis. Surgical Rationale: Based on the patient's imaging studies, physical examination findings, and progressive neurological deficits, a revision L2-Pelvis decompression and fusion is indicated. The patient demonstrates severe adjacent segment disease above her previous L4-pelvis fusion, with MRI confirming moderate to severe bilateral neural foraminal stenosis at L2-L3 and L3-L4. Without surgical intervention, the patient's condition is expected to progress to further neurological deficits and potential paralysis. Current imaging shows collapse of disc space, facet arthrosis, and facet hypertrophy, supporting the need for both decompression and fusion to address the structural instability and neural compression. FOLLOW UP: *POST-OP PLAN AT NEXT VISIT: * RECHECK PATIENT EDUCATION: Medications Reviewed: YES In our visit today Ms. Joseph- and I have had a chance to go over my understanding of the patient's current condition, the natural course history without intervention and various interventional options. Questions were invited and answered, and the patient wishes to proceed as outlined above. I will be sure to keep you updated after Ms. Joseph- returns here for further follow-up. Thank you again for your referral. Please do not hesitate to contact me if you have any further questions. Signed and authenticated by: Eric Johnson [id number] [address] [address] . This message is confidential, intended only for the named recipient(s) and may contain information that is privileged or exempt from disclosure under applicable law. If you are not the intended recipient(s), you are notified that the dissemination, distribution or copying of this information is prohibited. If you received this message in error, please notify the sender then delete this message. Past Medical History Past Medical History: Fibromyalgia, GERD/Reflux, Osteoarthritis (OA), Skin Disorder, Thyroid Disorder Additional Past Medical History / Comment(s): Hypoglycemia, occ migraines, Shyla's, hx palipitations, chronic pain syndrome, hx anemia, HX HO'S PALSY R/T COVID VACCINE and 2 times prior to covid vaccine, tingling in feet and sometimes rash, takes diltiazem for palpitations History of Any Multi-Drug Resistant Organisms: None Reported Past Surgical History: Back Surgery, Breast Surgery, Joint Replacement, Tubal Ligation Additional Past Surgical History / Comment(s): BILAT TKA, CYST REMOVED FROM RT BREAST, COLONOSCOPY, Rt. shoulder replacement, lumbar back surgery 04/2023 Past Anesthesia/Blood Transfusion Reactions: No Reported Reaction Smoking Status: Never smoker - Past Family History Mother Family Medical History: Congestive Heart Failure (CHF), COPD, Deep Vein Thrombosis (DVT), Pulmonary Embolus Father Family Medical History: Cancer Additional Family Medical History / Comment(s): kidney cancer w/ mets, anemia Medications and Allergies Home Medications Medication Instructions Recorded Confirmed Type Meloxicam [Mobic] 15 mg PO HS 03/08/21 01/09/25 History Levothyroxine Sodium [Euthyrox] 88 mcg PO DAILY 03/16/22 01/09/25 History Cholecalciferol (Vitamin D3) 125 mcg PO Q2D 06/01/24 01/09/25 History [Vitamin D3] Furosemide [Lasix] 20 mg PO DAILY 06/01/24 01/09/25 History Loratadine-Pseudoeph 10-240 mg 1 tab PO Q2D 06/01/24 01/09/25 History [Claritin-D 24 Hour] Multivitamins, Thera [Multivitamin 1 tab PO DAILY 06/01/24 01/09/25 History (formulary)] dilTIAZem HCL [dilTIAZem HCL 24Hr 120 mg PO HS 06/01/24 01/09/25 History ER (LA)] Nervive 1 tab PO DAILY 01/09/25 History Allergies Allergy/AdvReac Type Severity Reaction Status Date / Time amoxicillin AdvReac Rash/Hives Verified 01/09/25 14:54 metoprolol AdvReac Confusion Verified 01/09/25 14:54 tramadol AdvReac Confusion Verified 01/09/25 14:54 COVID VACCINE Allergy HO'S Uncoded 01/09/25 14:54 PALSY Physical Examination Osteopathic Statement: *. No significant issues noted on an osteopathic structural exam other than those noted in the History and Physical/Consult."
[~2025-01-15 07:30] MED LIST changes: +LIDOCAINE 1% (10MG/ML) FOR IV START INTRADERMA PRN; -MIDAZOLAM 2 MG/2 ML VIAL IV PRN; +ONDANSETRON 4 MG/2 ML VIAL IVP PRN; -fentaNYL (PF) 50 MCG/ML 2 ML AMP IV PRN
[2025-01-15 11:58] LABS: Glucose,Whole Blood 130 mg/dL (70-110)
[2025-01-15] MEDS: ACETAMINOPHEN TAB 500 MG TAB PO PRN (12:01)
[2025-01-15] MEDS: ONDANSETRON 4 MG/2 ML VIAL IVP ONE (12:01)
[2025-01-15] MEDS: DEXAMETHASONE SOD PHOSPHATE 4 MG/ML 1 ML VIAL IV ONE (12:01)
[2025-01-15] MEDS: GABAPENTIN 300 MG CAP PO PRN (12:01)
[2025-01-15] MEDS: IV FLUID CONTINUATION 1,000 ML IV ONE (12:03)
[2025-01-15] MEDS: MIDAZOLAM 2 MG/2 ML VIAL IV PRN (12:05)
[2025-01-15] MEDS: fentaNYL (PF) 50 MCG/ML 2 ML AMP IVP PRN (12:18)
--- NOTE | 2025-01-15 12:52 | P.ANPRN ---
Procedure Note - Anesthesia - Invasive Line Right Arterial Line Time Out Performed: Yes Date of Procedure: 01/15/25 Time of Procedure: 12:37 (]) Location of Patient: PreOp Preparation: Sterile Prep, Sterile Dressing Arterial Line Location: Radial Ultrasound Used: Yes Purpose - Visualization and Identification of Vasculature: Yes Needle Guage: 20 guage Image Stored and Saved: Yes Narrative: Invasive line placement per sterile protocol utilized.
--- NOTE | 2025-01-15 12:52 | P.ANPRN ---
Procedure Note - Anesthesia - Invasive Line Right Central Line Time Out Performed: Yes Date of Procedure: 01/15/25 Time of Procedure: 12:05 Location of Patient: PreOp Preparation: Sterile Prep, Sterile Dressing Central Line Location: Internal Jugular Ultrasound Used: Yes Purpose - Visualization and Identification of Vasculature: Yes Needle Guage: 7 armenian Image Stored and Saved: Yes Narrative: Invasive line placement per sterile protocol utilized.
[2025-01-15] MEDS ORDERED: ROCURONIUM 10 MG/ML (5 ML VIAL) IV ONE (12:57)
[2025-01-15] MEDS ORDERED: LIDOCAINE 1% INJ 10MG/ML (20 ML MDV) ONE (12:57)
[2025-01-15] MEDS ORDERED: MIDAZOLAM 2 MG/2 ML VIAL ONE (12:57)
[2025-01-15] MEDS ORDERED: TRANEXAMIC 1,000 MG/100ML-NACL PREMIX BAG ONE (12:57)
[2025-01-15] MEDS ORDERED: ePHEDrine 50 MG/ML 1 ML VIAL ONE (12:57)
[2025-01-15] MEDS ORDERED: HYDROmorphone (PF) 1 MG/ML ONE (12:57)
[2025-01-15] MEDS ORDERED: ACETAMINOPHEN IV (For NPO) 1,000 MG/100 ML VIAL ONE (12:57)
[2025-01-15] MEDS ORDERED: KETAMINE HCL IN 0.9 % NACL 50 MG/5 ML SYRINGE ONE (12:57)
[2025-01-15] MEDS ORDERED: PROPOFOL 10 MG/ML 20 ML VIAL IV ONE (12:57)
[2025-01-15] MEDS ORDERED: fentaNYL (PF) 50 MCG/ML 2 ML AMP ONE (12:57)
[2025-01-15] MEDS: LACTATED RINGERS 1,000 ML IV ONE ×3 (13:10→15:45)
[2025-01-15] MEDS: SODIUM CHLORIDE 0.9% 100 ML with ceFAZolin 2,000 MG IV ONE (13:11)
--- NOTE | 2025-01-15 13:21 | XR ---
EXAMINATION TYPE: XR chest 1V DATE OF EXAM: 01/15/2025 1:06 PM COMPARISON: Chest radiographs from 03/08/2021 CLINICAL INDICATION: Female, 64 years old with history of CENTRAL LINE PLACEMENT; [facility] TECHNIQUE: XR chest 1V Frontal view of the chest. FINDINGS: Lungs/Pleura: There is no evidence of pleural effusion, focal consolidation, or pneumothorax. Pulmonary vascularity: Pulmonary vascular congestion. Heart/mediastinum: Cardiomediastinal silhouette is enlarged and stable. Musculoskeletal: No acute osseous pathology. Right shoulder arthroplasty appears intact. Other findings: Central venous catheter with tip projecting over the right atrium. IMPRESSION: Cardiomegaly and mild pulmonary vascular congestion. Correlate with BNP for congestive heart failure. [facility], , 01/15/2025 1:19 PM
[2025-01-15] MEDS: THROMBIN (BOVINE) 5,000 UNIT VIAL TOPICAL ONE (13:31)
[2025-01-15] MEDS: GENTAMICIN 80 MG in SODIUM CHLORIDE 0.9% IRRIGATIO 3,000 ML IRRIGATION ONE (13:31)
[2025-01-15] MEDS: ceFAZolin 3,000 MG in SODIUM CHLORIDE 0.9% IRRIGATIO 3,000 ML IRRIGATION ONE (13:31)
[2025-01-15] MEDS: VANCOMYCIN 1,000 MG VIAL MISCELLANE ONE (17:08)
--- NOTE | 2025-01-15 17:26 | XR ---
EXAMINATION TYPE: XR lumbar spine 2 or 3V, FL guidance operating room DATE OF EXAM: 01/15/2025 5:15 PM COMPARISON: Pre Operative Images if available both CT/MRI or plain film CLINICAL INDICATION: Female, 64 years old with history of LUMBAR STENOSIS; TECHNIQUE: XR lumbar spine 2 or 3V, FL guidance operating room, multiple fluoroscopic images provided for procedure. DAP: 24.549 mGym2 Gycm2 uGym2 cGycm2 or equivalent. FINDINGS: Fluoroscopic images during internal fixation/arthroplasty demonstrate hardware in appropriate positio n. Hardware appears intact. No immediate complication identified. IMPRESSION: 1. No evidence for intraoperative complication. 2. Please see the operative/procedural note for further details. [facility], , 01/15/2025 5:24 PM
--- NOTE | 2025-01-15 17:47 | P.OP ---
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 Status post fall from ladder Procedure(s) Performed: 1. L3-4 INTRADISCAL OSTEOTOMY, 3 COLUMN, FOR DEFORMITY CORRECTION 2. L2-3 INTRADISCAL OSTEOTOMY, 3 COLUMN, FOR DEFORMITY CORRECTION 3. L2-3 POSTEROLATERAL AND INTERBODY FUSION 4. L3-4 POSTEROLATERAL AND INTERBODY FUSION 5. REVISION L4-PELVIS POSTEROLATERAL INSTRUMENTED FUSION 6. L2-PELVIS SEGMENTAL INSTRUMENTED FUSION 7. BILATERAL OPEN SACROILIAC JOINT FUSION FOR CONSTRUCT STABILITY AND SI FUSION 8. L2-3, L3-4 BILATERAL LAMINECTOMY , COMPLETE FACETECOMTY AND FORAMINOTOMY FOR COMPLETE NEURAL DECOMPRESSION AND DEFORMITY CORRECTION 9. INSERTION OF BIOMECHANICAL DEVICE L2-3, L3-4, CAGES x2 10. REMOVAL OF HARDWARE L5, S1, PELVIS DUE TO LOOSENING OF SCREWS AND PSEUDO ARTHROSIS 11. EXPLORATION OF FUSION L4-S1 12. USE OF DirectLaw NAVIGATION FOR SCREW PLACEMENT USE OF IONM ALL SCREWS TESTING SAFE Implants: -GLOBUS CREO RODS AND SCREWS -SI BONE GRANIT PELVIC SCREWS WITH SI BONE TORQUE SCREWS -LIFE SPINE PROLIFT CAGES x2 PARALLEL, 10MM AND 8MM -CONTOUR, ARTHROCELL, ALLOCELL, DBM BOATS, DBM, AUTOGRAFT Anesthesia: GETA Surgeon: Rick Kirkland Staff Cytotechnologist #1: Juan Oakes (was present and assisted with all aspects of the case from position to dressing placement) Estimated Blood Loss (ml): 500 IV fluids (ml): 2,800 Urine output (ml): 130 Pathology: none sent Condition: stable Disposition: PACU Indications for Procedure: Ms. 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 Patient demonstrates bilateral lower extremity weakness, neurogenic claudication, and new onset bladder symptoms. MRI reveals moderate disc degeneration with osteoarthritic changes and moderate bilateral neural foraminal stenosis at L2-L3 and L3-L4, with existing hardware at L4-S1. Co nservative management with NSAIDs (Ibuprofen, Tylenol, Mobic) has failed to provide relief. After thorough discussion of risks and benefits, patient has consented to Revision L2-Pelvis decompression and fusion. Pre-operative clearance has been requested from PCP. Patient is scheduled for surgical follow- up post-operatively to monitor recovery progress and neurological status. BMI: 39.25 kg/m2, BP: 130/80, independently ambulatory.Ms. 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 Patient demonstrates bilateral lower extremity weakness, neurogenic claudication, and new onset bladder symptoms. MRI reveals moderate disc degeneration with osteoarthritic changes and moderate bilateral neural foraminal stenosis at L2-L3 and L3-L4, with existing hardware at L4-S1. Conservative management with NSAIDs (Ibuprofen, Tylenol, Mobic) has failed to provide relief. After thorough discussion of risks and benefits, patient has consented to Revision L2-Pelvis decompression and fusion. Pre-operative clearance has been requested from PCP. Patient is scheduled for surgical follow-up post-operatively to monitor recovery progress and neurological status. BMI: 39.25 kg/m2, BP: 130/80, independently ambulatory. Description of Procedure: L2-PELVIS REVISION DECOMPRESSION AND FUSION, PRAVEENA (FREE HAND) The patient was seen and examined in the preoperative area. All preoperative protocols were followed. Informed consent was obtained, risks and benefits of the procedure were discussed at length. Risks including bleeding infection damage to the surrounding tissue and risk of reoperation were discussed with the patient. Risk of anesthesia up to and including was discussed with the patient. These are outlined in the risk review. They were willing to accept these risks and all the risks of surgery. The patient was given a weight-based dose of antibiotics in the form of 3 g Ancef. The patient was seen and evaluated by the anesthesia team who deemed them fit for surgery. The site was marked, the patient was willing to proceed with the procedure. The patient was transferred to the operative suite by the Department of anesthesia. They were then drifted off to sleep by the department anesthesia and GETA was performed. The patient tolerated this well. Jacobsen catheter was placed by nursing staff, a-traumatically. Once confirmation of lines and ventilation the patient was transferred to a prone Trios spine table very carefully. The head was secured and stable. X Ray confirmed alignment. All bony prominences including wrists, elbows, axilla, chest, hips, and thighs, and feet were padded very well. Special attention was paid to the genitalia, and these were padded accordingly. SCDs were placed on bilateral lower extremities and were connected. Arms were well padded and placed at 90/90 up and out and well padded. Safety strap and tape placed on the patient. Once in position, again we confirmed good ventilation capabilities and that lines were running appropriately. The patient's lumbosacral pelvic was then exposed. Hair was removed for incision. 1010s were placed outlining the incision site. Standard alcohol was used to clean the incision site and allowed to dry. C-arm was used to bio-katja the patient and confirm level for incision which was marked with a skin marker. Operative briefing was performed with all teams and everyone in agreement to proceed. The patient was then prepped and draped in a normal sterile fashion. Timeout was then performed, and all parties agreed with the procedure to be performed. Midline skin incision was then made over the previously bookmarked area and dissection taken down to the lumbosacral fascia which was identified and cleaned with a kendrick. There was excessive sub-q adipose that was obtrusive and needed to be retracted. Once midline was identified, fasciotomy was made over the SP of L1-S1 and pelvis. Subperiosteal dissection was then taken down over the lamina and facet joints and TPs were exposed and trough made posterolateral gutters, old hardware was identified at L4-Pelvis. Rods were removed and screws tested. Screws bilateral at L5 were loose as well as right S1 and Left Pelvis and marginal right Pelvis. These were all removed and tracts palpaed which were stable and had good multani and floor. TPs were then decorticated with a high speed giselle for lateral fusion and scar tissues removed. Retractors placed. Wound was irrigated and lateral image with penfield 4 placed at the pars of L4 confirmed levels for operation. Screws were then placed from L2-Pelvis using Entrisphere navigation. Tracker was placed on the SP of L3 and a 3D Zheim spin was done and registered. Once confirmed accurate screws were placed using abdias with navigated giselle, awl tap and screw refrigerated national truck driver. High speed giselle was used to make a steamboat pilot hole followed by awl/tap that was passed through the pedicle into the body. A ball tip probe then confirmed within the pedicle. The screw was then measured and placed using Entrisphere Abdias. After screws were placed from L2-S1, AP image confirmed safe placement of screws. Pelvis screws were then replaced using navigation as well. These were confirmed on AP/inlet and outlet views to be in good position. Screws were then tested, and reliably tested screws tested above 20 mA. SI Bone Torque screws were then proceeded to be placed bilaterally for SIJ fusion. This was done in an S2Ai approach with lateral image, high speed giselle and gear shift. Ball tip probe then used to measure screw and palpate and confirm safety. Judet views confirmed trajectory and SIJ stabilization. Screws were then placed after decortication of the SIJ bilaterally in these positions. They were confirmed to be in good position on AP, Inlet and Outlet views. We then proceeded to decompression and interbody placement. Starting at L3-4, bilateral laminectomy, complete facetectomy and foraminotomies were performed using high speed bur, Kerrison rongeur. There was exuberant bone formation throughout the entire lumbar spine, making the case very meticulous and difficult. Severe stenosis with dural scarring was noted at L3-S1. There was significant scar tissue surrounding these joints as well as the dura. Once exposed the neural elements were protected and an intradiscal osteotomy, 3 column, was performed for deformity correction at L3-4. Osteotome was used to make osteotomy in L3 and L4 and for complete disc removal. A box osteotome was then used to widen this bilaterally. This was passed into the anterior 1/3 of L3. This allowed for loosening of this level and correction. A cage was then selected based on shaving and trials. Bleeding endplates were encountered and cartilage removed. Autograft, allograft were then placed anterior to the cage. The cage was then impacted into place under lateral imaging while protecting neural elements. The cage was then expanded into position and showed good lift and correction. Catholic of lordosis and height achieved. Meticulous hemostasis then performed. Cage was backfilled with DBM and the area irrigated. At L2-3, bilateral laminectomy, complete facetectomy and foraminotomy were performed as described above. Again, exuberant bone formation was encountered and at this level. There was also a large disc osteophyte complex that was identified once disc space was found. The dura was carefully dissected off this anteriorly and b/l. Once encountered, the disc space was then accessed in a similar fashion and neural elements protected. Intradiscal, 3 column osteotomies, for deformity correction was then performed again at this level as described above. Once completed and complete discectomy performed there was good mobility at this level. Cage was then sized and selected. Autograft and allograft was then placed anterior in the disc space and the cage was then inserted and impacted into place under lateral. AP image, as before, was taken to ensure midline placement. The cage was then expanded into position. This restored height, lordosis and alignment well. The cage was tested and was stable. The wound was irrigated. Meticulous hemostasis then performed. Attention was then drawn to santiago placement. Rods were selected, measured, cut and bent to appropriate lordosis. They were then secured into pelvic screws b/l. Sequential reduction then done into each screw and set screw placed. Set screws were then final tightened and lateral image showed good lordosis reduction and sagittal alignment from the previous hyperlordotic alilgmment with fish-mouthing to a better more stable alignment with good sagittal balance and coronal alignment. The wound was then irrigated with 3L Ancef irrigation, 3L gentamicin irrigation, 3L Irricept through the case and 1L Betadine at the end of the case and 3L NSS. Surgicel was then placed on the dura, which was inspected and had no injury. Then, in the posterolateral gutter was placed, MagnatOs, Autograft and allograft. This was impacted into position and surgical placed over it. 2g Vanco powder was then placed deep in the wound. A deep, subfascial drain was placed and a superficial facial drain placed. We then proceeded with layered closure. #1 PDS placed in the deep fascia. 0 Vicryl placed in the deep subq, 2-0 placed in the superficial subq and ophelia placed in the skin. The wound edges approximated very well. The wound was then cleaned with ETOH and dressed with adaptic, 4x4, ABD and tape. Drains sewed into position. IONM confirmed no changes. The patient was then transferred off the [facility] spine table to their hospital bed a-traumatically. Drains continued to hold suction. The patient was then extub ated and transferred to the PACU/ICU in stable condition having tolerated the procedure with no complications.
[2025-01-15] MEDS ORDERED: HYDROcodone/APAP 10-325MG 1 EACH TAB PO PRN (17:52)
[2025-01-15] MEDS ORDERED: HYDROmorphone 1 MG/ML 1 ML SYRINGE IVP PRN (17:52)
[2025-01-15] MEDS ORDERED: MAG HYDROX/AL HYDROX/SIMETH 30 ML CUP PO PRN (17:52)
[2025-01-15] MEDS ORDERED: HYDROmorphone 0.5 MG/0.5 ML SYRINGE IVP PRN (17:52)
[2025-01-15] MEDS ORDERED: bisacodyL 10 MG SUPP RECTAL PRN (17:52)
[2025-01-15] MEDS ORDERED: MAGNESIUM HYDROXIDE 2,400 MG/30 ML CUP PO PRN (17:52)
[2025-01-15] MEDS ORDERED: ONDANSETRON 4 MG/2 ML VIAL IVP PRN (17:52)
[2025-01-15] MEDS ORDERED: NA PHOS,M-B/NA PHOS,DI-BA 133 ML ENEMA RECTAL PRN (17:52)
[2025-01-15] MEDS ORDERED: oxyCODONE-APAP 7.5-325MG 1 EACH TAB PO PRN (17:58)
[2025-01-15] MEDS: HYDROmorphone 0.5 MG/0.5 ML SYRINGE IVP PRN (18:40)
[2025-01-15] MEDS: ACETAMINOPHEN TAB 325 MG TAB PO SCH (19:51)
[2025-01-15] MEDS: KETOROLAC 15 MG/ML 1 ML VIAL IVP SCH (19:51)
[2025-01-15] MEDS: GABAPENTIN 300 MG CAP PO SCH (21:06)
[2025-01-15] MEDS: HYDROcodone/APAP 7.5-325MG 1 EACH TAB PO PRN (21:35)
[2025-01-15] MEDS: 0.9% NACL WITH KCL 20 MEQ/L 1,000 ML IV SCH (22:37)
[2025-01-15] MEDS: LACTATED RINGERS 1,000 ML IV SCH (22:38)
--- NOTE | 2025-01-16 06:55 | CT ---
EXAMINATION TYPE: CT lumbar spine wo con DATE OF EXAM: 01/15/2025 10:29 PM COMPARISON: Prior CT lumbar spine April 12, 2023 CLINICAL INDICATION: Female, 64 years old with history of s/p lumbar fusion; [facility], s/p lumbar fusion TECHNIQUE: Unenhanced CT of the lumbar spine was performed. Bone and soft tissue window settings are submitted as well as coronal and sagittal reconstructions. CT DLP: 1820.6 mGycm Automated exposure control for dose reduction was used. FINDINGS: There are 5 lumbar type vertebra redemonstrated. There is now postsurgical change beginning at L2 lev el extending into the pelvis. Bilateral posterior interpedicular rods and screws artery demonstrated. There is new metallic disc material at L2-L3 and L3-L4 levels. Alignment is stable and satisfactory. Posterior laminectomy defects and spinous process resection beginning at L2 level is now seen. There are new posterior vertically oriented skin ophelia. There is new right-sided percutaneous drainage c atheter. Presence of metallic hardware makes evaluation suboptimal. There is some ill-defined fluid a nd air in the deeper tissue surrounding the spinal canal at mid lumbar levels presumed postsurgical. Review of the axial images shows new hardware position to appear grossly satisfactory. The bilateral L5 screws extend past the anterior vertebral body margin similar to prior. The right S1 screw extends past the anterior sacral margin similar to prior. There is more prominent narrowing and sclerosis at the right sacroiliac joint on current study noted. Jacobsen catheter in the bladder is partially imaged . Sigmoid colonic diverticulosis is redemonstrated. IMPRESSION: Extension of surgical change superiorly up to L2 level. Stable and satisfactory alignment is seen. [facility], , 01/16/2025 6:53 AM
[2025-01-16 09:03] LABS: Basophils # (A) 0.01 X 10*3/uL (0.00-0.10); Basophils % (A) 0.1 %; Eosinophils # (A) 0 X 10*3/uL (0.04-0.35); Eosinophils % (A) 0 %; HCT 33.1 % (37.2-46.3); HGB 10.4 g/dL (12.0-15.0); Lymphocytes # (A) 0.53 X 10*3/uL (0.90-5.00); Lymphocytes % (A) 4.5 %; MCH 30.7 pg (27.0-32.0); MCHC 31.4 g/dL (32.0-37.0); MCV 97.6 FL (80.0-97.0); Mean Platelet Volume 10.2 FL (9.5-12.2); Monocytes # (A) 0.46 X 10*3/uL (0.20-1.00); Monocytes % (A) 3.9 %; NRBC Per 100 WBC 0 X 10*3/uL (0.00-0.01); Neutrophils # (A) 10.74 X 10*3/uL (1.80-7.70); Neutrophils % (A) 90.8 %; Platelet Count 214 X 10*3/uL (140-440); RBC 3.39 X 10*6/uL (4.10-5.20); RDW 12.3 % (11.5-14.5); WBC 11.82 X 10*3/uL (4.50-10.00)
[2025-01-16 10:21] LABS: Blood Urea Nitrogen 11.2 mg/dL (9.0-27.0); Calcium 8.9 mg/dL (8.7-10.3); Carbon Dioxide 24.7 mmol/L (21.6-31.8); Chloride 104 mmol/L (96-109); Glucose 213 mg/dL (70-110); Potassium 4.8 mmol/L (3.5-5.5); Sodium 141 mmol/L (135-145)
[2025-01-16] MEDS: polyethylene glycoL 3350 17 GM POWD.PACK PO SCH (10:58)
[2025-01-16] MEDS: SENNOSIDES-DOCUSATE SODIUM 1 EACH TAB PO SCH (10:58)
--- NOTE | 2025-01-16 12:57 | P.PN ---
Subjective Progress Note Date: 01/16/25 Principal diagnosis: Status post revision [id number] decompression and fusion, bilateral SI joint fusion Patient was examined today at bedside, she was sitting up in her bed resting comfortably. Patient has been up to the chair on multiple occasions, she has been urinating with no issues since discontinuation of the catheter, she is actually been ambulating the halls with a walker. Her pain is well-controlled at this time. She is putting out moderate bloody serosanguineous fluid in the Hemovac drain. She denies any headaches, headedness, chest pain or shortness of breath Objective - Vital Signs Vital signs: Vital Signs Temp 98.2 F 01/16/25 06:50 Pulse 75 01/16/25 06:50 Resp 18 01/16/25 06:50 BP 137/73 01/16/25 06:50 Pulse Ox 92 L 01/16/25 06:50 FiO2 Intake & Output 01/15/25 01/16/25 01/16/25 18:59 06:59 18:59 Intake Total 3002 400 Output Total 700 1370 560 Balance 2302 -970 -560 Weight 90.8 kg 90.8 kg Intake: IV 3002 400 Output: Drainage 170 360 Back 170 360 Urine 200 1200 200 Uretheral (Jacobsen) 100 Estimated Blood Loss 500 Other: Voiding Method Indwelling Catheter Toilet - Exam Gen: AOx3, NAD VSS stable at this time Integument: Postop dressing and Hemovac drain is in good position condition Palpation: Mild tenderness with palpation to the lumbar spine ROM: Full range of motion in all major muscle groups of the bilateral upper and lower extremities, no focal deficits appreciated Sensory Exam: Senory exam to light touch is intact C5-T1 Senosry exam to light touch is intact L2-S1 Motor: 5/5 strength appreciated bilateral upper extremities with shoulder elevation, shoulder abduction, elbow extension, elbow flexion, extension, wrist flexion, laboratory manager, intrinsics 4/5 strength appreciated in the right lower extremity with hip flexion, knee extension, knee flexion, plantarflexion, dorsiflexion, EHL, FHL 4-/5 strength appreciated to the left lower extremity with hip flexion, knee flexion 4/5 strength knee extension, plantarflexion, dorsiflexion, EHL, FHL Reflexes: 2/4 in all UE and LE Negative Pablo's bilaterally Negative clonus bilaterally - Labs CBC & Chem 7: 01/16/25 02:59 03 02:59 Labs: Abnormal Lab Results - Last 24 Hours (Table) 01/16/25 01/16/25 Range/Units 02:59 02:59 WBC 11.82 H (4.50-10.00) X 10*3/uL RBC 3.39 L (4.10-5.20) X 10*6/uL Hgb 10.4 L (12.0-15.0) g/dL Hct 33.1 L (37.2-46.3) % MCV 97.6 H (80.0-97.0) FL MCHC 31.4 L (32.0-37.0) g/dL Immature Gran # 0.08 H (0.00-0.04) X 10*3/uL Neutrophils # 10.74 H (1.80-7.70) X 10*3/uL Lymphocytes # 0.53 L (0.90-5.00) X 10*3/uL Eosinophils # 0 L (0.04-0.35) X 10*3/uL Anion Gap 12.30 H (4.00-12.00) mmol/L Glucose 213 H (70-110) mg/dL Assessment and Plan Assessment: Postop day #1 status post revision [id number] decompression fusion, bilateral SI joint fusion Acute blood loss anemia, expected surgical outcome Other medical comorbidities Plan: Pain control, continue with current medications DVT prophylaxis, aspirin 81 mg daily Ferrous sulfate to 25 mg twice daily for anemia Monitor drain output and surgical dressing Weight-bear as tolerated with walker, no bending, lifting or twisting Continue with PT/OT Encourage incentive spirometer Medical recommendations appreciated Discharge planning: Anticipate discharge to home with home health care in the next 24-48 hours
[2025-01-16] MEDS: FERROUS SULFATE 325 MG TAB PO SCH (16:51)
[2025-01-16] MEDS: ASPIRIN 81 MG PO SCH (16:51)
[2025-01-17] MEDS: CYCLOBENZAPRINE 10 MG TAB PO PRN (00:44)
[2025-01-17] MEDS: LEVOTHYROXINE 88 MCG TAB PO SCH (06:04)
--- NOTE | 2025-01-17 06:29 | P.CONS ---
History of Present Illness - Reason for Consult Consult date: 01/16/25 Medical management status post L2 revision with decompression and fusion - History of Present Illness This is a pleasant 64-year-old female who was admitted under orthopedics and is status post L23-34 revision with decompression and fusion. Patient follows with Dr. Anderson in the outpatient setting with a past medical history of fibromyalgia, GERD, osteoarthritis, thyroid disorder, frequent hypoglycemic episodes, Shyla's, chronic pain syndrome, and obesity. Patient denies smoking, very rarely drinks and reports takes edible marijuana Gummies at night for sleep. Patient reports she did undergo surgical clearance with primary care provider prior to this intervention. Patient is doing relatively well and is also maintained on Lasix at home and has been undergoing further workup as patient has been having lower extremity swelling and generalized edema. Patient reports no history of heart failure. Will resume appropriate home medications. REVIEW OF SYSTEMS: CONSTITUTIONAL: No fever, no malaise, no fatigue. HEENT: No recent visual problems or hearing problems. Denied any sore throat. CARDIOVASCULAR: No chest pain, orthopnea, PND, no palpitations, no syncope. PULMONARY: No shortness of breath, no cough, no hemoptysis. GASTROINTESTINAL: No diarrhea, no nausea, no vomiting, no abdominal pain. NEUROLOGICAL: No headaches, no weakness, no numbness. HEMATOLOGICAL: Denies any bleeding or petechiae. GENITOURINARY: Denies any burning micturition, frequency, or urgency. MUSCULOSKELETAL/RHEUMATOLOGICAL: Denies any joint pain, swelling, reports of some mid and lower back pain ENDOCRINE: Denies any polyuria or polydipsia. The rest of the 14-point review of systems is negative. PHYSICAL EXAMINATION: GENERAL: The patient is alert and oriented x3, not in any acute distress. Well developed, well nourished. Elderly appearing, obese HEENT: Pupils are round and equally reacting to light. EOMI. No scleral icterus. No conjunctival pallor. Normocephalic, atraumatic. No pharyngeal erythema. No thyromegaly. CARDIOVASCULAR: S1 and S2 muffled PULMONARY: Diminished breath sounds bilaterally otherwise chest is clear to auscultation, no wheezing or crackles. ABDOMEN: Soft, nontender, nondistended, normoactive bowel sounds. No palpable organomegaly. MUSCULOSKELETAL: No joint swelling or deformity. EXTREMITIES: No cyanosis, clubbing, or pedal edema. Bilateral upper and lower extremity edema, nonpitting noted NEUROLOGICAL: Gross neurological examination did not reveal any focal deficits. Diffusely weak SKIN: No rashes. Assessment: Status post L2-3, 34 revision with decompression and fusion History of severe stenosis of the lumbar spine History of fibromyalgia History of GERD History of Shyla's History of osteoarthritis History of thyroid disorder History of chronic pain syndrome THC use Obesity with a BMI of 39.1 GI prophylaxis DVT prophylaxis Full code Plan: Patient admitted under orthopedic services reports to doing well and has been up and working with physical therapy Home medications reviewed and resumed as appropriate and will resume Lasix as patient chronically takes for generalized edema Encourage incentive spirometer use at least 10 times every hour while awake Recommend sitting up in the chair with each meal and frequently as tolerated We will continue to follow with orthopedics during hospitalization. Thank you kindly for this consultation. The impression and plan of care has been dictated by Maryam Mosley, Nurse Practitioner as directed. Dr. Gabreila MD I have performed a history and examination and MDM of this patient, discussed the same with the dictator, and agree with the dictator's assessment and plan as written ,documented as a scribe. Based on total visit time, I have performed more than 50% of the visit. Past Medical History Past Medical History: Fibromyalgia, GERD/Reflux, Osteoarthritis (OA), Skin Disorder, Thyroid Disorder Additional Past Medical History / Comment(s): Hypoglycemia, occ migraines, Shyla's, hx palipitations, chronic pain syndrome, hx anemia, HX HO'S PALSY R/T COVID VACCINE and 2 times prior to covid vaccine, tingling in feet and sometimes rash, takes diltiazem for palpitations History of Any Multi-Drug Resistant Organisms: None Reported Past Surgical History: Back Surgery, Breast Surgery, Joint Replacement, Tubal Ligation Additional Past Surgical History / Comment(s): BILAT TKA, CYST REMOVED FROM RT BREAST, COLONOSCOPY, Rt. shoulder replacement, lumbar back surgery 04/2023 Past Anesthesia/Blood Transfusion Reactions: No Reported Reaction Smoking Status: Never smoker - Past Family History Mother Family Medical History: Congestive Heart Failure (CHF), COPD, Deep Vein Thrombosis (DVT), Pulmonary Embolus Father Family Medical History: Cancer Additional Family Medical History / Comment(s): kidney cancer w/ mets, anemia Medications and Allergies Home Medications Medication Instructions Recorded Confirmed Type Meloxicam [Mobic] 15 mg PO HS 03/08/21 01/09/25 History Levothyroxine Sodium [Euthyrox] 88 mcg PO DAILY 03/16/22 01/15/25 History Cholecalciferol (Vitamin D3) 125 mcg PO Q2D 06/01/24 01/09/25 History [Vitamin D3] Furosemide [Lasix] 20 mg PO DAILY 06/01/24 01/09/25 History Loratadine-Pseudoeph 10-240 mg 1 tab PO Q2D 06/01/24 01/15/25 History [Claritin-D 24 Hour] Multivitamins, Thera [Multivitamin 1 tab PO DAILY 06/01/24 01/09/25 History (formulary)] dilTIAZem HCL [dilTIAZem HCL 24Hr 120 mg PO HS 06/01/24 01/09/25 History ER ([place])] Nervive 1 tab PO DAILY 01/09/25 History Allergies Allergy/AdvReac Type Severity Reaction Status Date / Time amoxicillin AdvReac Rash/Hives Verified 01/15/25 11:42 metoprolol AdvReac Confusion Verified 01/15/25 11:42 tramadol AdvReac Confusion Verified 01/15/25 11:42 COVID VACCINE Allergy HO'S Uncoded 01/15/25 11:42 PALSY Physical Exam Vitals: Vital Signs Temp Pulse Pulse Pulse Resp BP BP 01/16/25 06:50 98.2 F 75 18 137/73 01/16/25 06:33 01/16/25 01:19 97.2 F L 85 16 144/72 01/15/25 19:15 63 16 122/61 01/15/25 19:00 64 17 119/60 01/15/25 18:45 78 17 128/60 01/15/25 18:30 73 16 128/67 01/15/25 18:15 65 16 130/66 01/15/25 18:00 97 F L 75 15 122/68 01/15/25 12:50 68 16 150/77 01/15/25 12:05 83 16 155/67 01/15/25 11:50 97.1 F L 69 16 174/77 Pulse Ox 01/16/25 06:50 92 L 01/16/25 06:33 94 L 01/16/25 01:19 98 01/15/25 19:15 92 L 01/15/25 19:00 93 L 01/15/25 18:45 94 L 01/15/25 18:30 91 L 01/15/25 18:15 99 01/15/25 18:00 98 01/15/25 12:50 98 01/15/25 12:05 99 01/15/25 11:50 96 Intake and Output 01/15/25 01/16/25 01/16/25 22:59 06:59 14:59 Intake Total 1300 Output Total 900 1170 200 Balance 400 -1170 -200 Intake: IV 1300 Output: Drainage 170 Back 170 Urine 400 1000 200 Uretheral (Jacobsen) 100 Estimated Blood Loss 500 Other: Voiding Method Indwelling Catheter Weight 90.8 kg Results CBC & Chem 7: 01/16/25 02:59 01/16/25 02:59 Labs: Abnormal Lab Results - Last 24 Hours (Table) 01/15/25 01/16/25 Range/Units 11:57 02:59 WBC 11.82 H (4.50-10.00) X 10*3/uL RBC 3.39 L (4.10-5.20) X 10*6/uL Hgb 10.4 L (12.0-15.0) g/dL Hct 33.1 L (37.2-46.3) % MCV 97.6 H (80.0-97.0) FL MCHC 31.4 L (32.0-37.0) g/dL Immature Gran # 0.08 H (0.00-0.04) X 10*3/uL Neutrophils # 10.74 H (1.80-7.70) X 10*3/uL Lymphocytes # 0.53 L (0.90-5.00) X 10*3/uL Eosinophils # 0 L (0.04-0.35) X 10*3/uL POC Glucose (mg/dL) 130 H (70-110) mg/dL
[2025-01-17 08:03] VITALS: RESP 18
[2025-01-17] MEDS: MULTIVITAMINS, THERA 1 EACH TAB PO SCH (08:50)
[2025-01-17] MEDS: FUROSEMIDE 20 MG TAB PO SCH (08:50)
[2025-01-17] MEDS: LORATADINE-PSEUDOEPH 5-120 MG 1 EACH TAB.ER.12H PO SCH (08:51)
--- NOTE | 2025-01-17 12:10 | P.PN ---
Subjective Progress Note Date: 01/17/25 Principal diagnosis: Status post revision [id number] decompression and fusion, bilateral SI joint fusion Patient was examined today at bedside, she was sitting up in her bed resting comfortably. Patient continues to progress well. She continues to ambulate with the assistance of a walker with minimal difficulty. Her pain is well- controlled. Her drain output is slowed down significantly. She denies any headaches, headedness, chest pain or shortness of breath Objective - Vital Signs Vital signs: Vital Signs Temp 98.1 F 01/17/25 07:05 Pulse 63 01/17/25 07:05 Resp 18 01/17/25 07:05 BP 156/67 01/17/25 07:05 Pulse Ox 99 01/17/25 07:05 FiO2 Intake & Output 01/16/25 01/17/25 01/17/25 18:59 06:59 18:59 Output Total 763 160 Balance -763 -160 Output: Drainage 560 160 Back 560 160 Urine 203 Other: Voiding Method Toilet Toilet # Voids 5 - Exam Gen: AOx3, NAD VSS stable at this time Integument: Postop dressing was removed today at bedside, ophelia are in good position. Drain is in good position condition Palpation: Mild tenderness with palpation to the lumbar spine ROM: Full range of motion in all major muscle groups of the bilateral upper and lower extremities, no focal deficits appreciated Sensory Exam: Senory exam to light touch is intact C5-T1 Senosry exam to light touch is intact L2-S1 Motor: 5/5 strength appreciated bilateral upper extremities with shoulder elevation, shoulder abduction, elbow extension, elbow flexion, extension, wrist flexion, costume draper, intrinsics 4/5 strength appreciated in the right lower extremity with hip flexion, knee extension, knee flexion, plantarflexion, dorsiflexion, EHL, FHL 4-/5 strength appreciated to the left lower extremity with hip flexion, knee flexion 4/5 strength knee extension, plantarflexion, dorsiflexion, EHL, FHL Reflexes: 2/4 in all UE and LE Negative Pablo's bilaterally Negative clonus bilaterally - Labs CBC & Chem 7: 01/16/25 02:59 01/16/25 02:59 Assessment and Plan Assessment: Postop day #2 status post revision [id number] decompression fusion, bilateral SI joint fusion Acute blood loss anemia, expected surgical outcome Other medical comorbidities Plan: Pain control, continue with current medications DVT prophylaxis, aspirin 81 mg daily Ferrous sulfate to 25 mg twice daily for anemia Hemovac drain was adjusted to half suction, will reassess later this afternoon. New dressing was placed at bedside. Weight-bear as tolerated with walker, no bending, lifting or twisting Continue with PT/OT Encourage incentive spirometer Medical recommendations appreciated Discharge planning pending drain output later this afternoon, possible discharge home today versus 01/17/2025: Time with Patient: Less than 30
[2025-01-17] MEDS: CEPHALEXIN 500 MG CAP PO SCH (13:11)
--- NOTE | 2025-01-17 13:38 | P.DS ---
Providers Date of admission: 01/15/25 11:24 Expected date of discharge: 01/17/25 Attending physician: Rick Kirkland DO Consults: 01/15/25 17:54 Consult Physician Routine Consulting Provider: Bacilio Jones Consult Reason/Comments: medical management Do you want consulting provider notified?: Yes Primary care physician: [facility] [place] Course: Date of admission: 01/15/2025 Date of discharge: 01/17/2025 Admission diagnosis: Status post revision [id number] decompression fusion, bilateral SI joint fusions Discharge diagnosis: Same Attending physician: Dr. Kirkland Surgical procedures: Revision [id number] decompression fusion, bilateral SI joint fusions Brief history: Patient is a 64-year-old female with a history of a previous lumbar back surgery 2 to 3 years ago. Patient has been following up with Dr. Kirkland in the outpatient setting for continuing low back pain after sustaining a fall from a ladder. 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 Conservative measures had failed for symptomatic relief, patient was scheduled for surgery for 01/17/2025 Hospital course: Details of patient's surgery can be found in operative report. Patient tolerated the procedure well and was subsequently transported to orthopedic floor. Patient's orthopeidc and medical care was provided daily. P atient had daily laboratory tests performed for evaluation of overall blood counts. Patient had daily physical therapy to include strengthening range of motion as well as education with walker ambulation. Patient was treated with aspirin for their postoperative DVT prophylaxis during their inpatient stay. Patient was noted to have a relatively uneventful postoperative course. Patient reported satisfactory pain control with oral pain medications by postoperative day 1. Patient showed satisfactory progress with physical therapy. Patient moved steadily through the program and had no difficulty meeting the goals by postoperative day 2. Given patient's otherwise satisfactory course and having met physical therapy goals, plan is to discharge patient [home] on postoperative day 2. Discharge condition/disposition: Patient will be discharged [home] in stable condition. Discharge medications: Instructions are given on resumption of patient's normal daily medications per primary care recommendation, in addition patient will be prescribed Bur[place] 7.5 mg / 325 mg, gabapentin 300 mg, Flexeril 10 mg, Duricef 500 mg. Spine Discharge and Recovery Instructions Medications: See medication list All medication refills should be obtained through your primary care doctor or your clinic spine surgeon. Please discuss prescription refills at your follow up appointment. Do not call the hospital for medication refills. Dressing: Leave your dressing in place for a total of 5 days post operatively. Then you may remove your dressing and leave open to air. Keep the area clean and if not able to keep area clean, then cover with sterile gauze and tape. Showering: You may shower 3 days after your procedure allowing soap and water to run over incision. Do not scrub. Do not soak. Blot dry. Follow up: Please confirm a follow up appointment with your surgeon 3 weeks post operatively. Please make an appointment to follow up with your PCP in 1-2 weeks after surgery for evaluation '3 phase, 3-week plan' POST OP WEEKS 1-3 1. Lifting/carrying/pushing/pulling limited to less than 5 pounds. 2. Do not sit for longer than 15 minutes at one time. Get up and walk around. Prolonged sitting is NOT advised. If you lay down, see if you can tolerate laying down on you front (belly side) 3. Walk for periods of 15 minutes = 1 mile but no longer; do it multiple times times each day. 4. Ice your low back after activity. POST OP WEEKS 3-6 1. Lifting limited to less than 20 pounds. 2. Do not sit for longer than 30 minutes at a time. Frequently change positions. Use a sit-to stand workstation or take frequent breaks from sitting if you have returned to work. 3. Walk for 30 minutes each day. If possible, do these three or more times a day POST OP WEEKS 6+ At your 6-week appointment we will give you a physical therapy referral to focus on a core stabilization and strengthening program. You should also work on leg & buttock strengthening, hamstring & quadriceps stretching, and continue a low impact aerobic activity program such as swimming, walking, or riding a [employer] bicycle. During the initial 6 weeks after your surgery, you are at the highest risk of re-injuring your spine. You should generally avoid BLT's (bending, lifting and twisting combination motions) and follow the above guidelines to reduce the chance of reinjury. You can anticipate post op appointments in our office at approximately 3 weeks and 6 weeks after your surgery. INCISION CARE: If your incision is not draining you do NOT need to cover it with a dressing. Keep your incision clean, dry and intact. In most cases, we apply skin glue, ophelia or sutures to the incision at the time of surgery. This will be like a crust or have the appearance of a scab and will fall off in time on its own. The stitches or ophelia need to be removed at 3 weeks post op appointment. You may begin to shower 3 days after surgery (this allows the glue to wong well). However, please avoid scrubbing the incision site or peeling off any of the skin glue. This will ensure optimal healing of your incision. Also, during this time avoid soaking the incision area in water - this includes swimming pools, hot tubs or baths. No ointments, lotions or oils on the incision until your surgeon allows. Leave ophelia, sutures or glue in place. Neurological dysfunction that comes on suddenly can also be a sign of a stroke. Below some common symptoms of a stroke are listed: B - balance difficulty such as sudden onset walking or leaning to one side - NEW E - eye problem such as sudden double vision or trouble seeing on one side - NEW F - Facial weakness or numbness on one side - NEW A - Arm or leg weakness or numbness on one side - NEW S - Slurred speech or difficulty with word finding - NEW T - Time is BRAIN! Call 911 as soon as you recognize these symptoms Diet: Consume a regular diet rich in vegetables and lean protein such as chicken or fish. You should consume in a ratio of approximately 20% fats|40% carbo hydrates|40%protein. Vegetables, sweet potatoes, brown rice or quinoa are examples of good carbohydrates. Chips, white bread, cookies and sweets/sugar are examples of bad carbohydrates. Limit your bad carbs, go wild with good carbs. "Life's Simple 7" Guidelines as per [place] [employer] These will help you reclaim your life after surgery and charger operator helper in your recovery, keeping in mind your restrictions. (1) Get Active. Physical activity can help people lose weight, control high blood pressure and cholesterol, feel emotionally better, and sleep better. (2) Control Cholesterol. Avoid a diet high in saturated fat, trans fat, & cholesterol. Limit whole milk & cream, ice cream, butter, egg yolks, processed meats (like sausage and hot dogs), and fatty meats. Choose healthy foods that are low in saturated fat, trans fat and cholesterol which include: Fruits and vegetables, fiber rich grain products (like whole grain pasta and brown rice), lean meat such as chicken, fish, nuts, seeds, and legumes. (3) Eat Better. Eat small portions. Shop at the grocery with a list and do not stray from it. Tips for a healthy diet include: Limit sodium intake to less than 1500mg daily, avoid prepackaged, processed, and fast foods, choose a diet rich in fruits, vegetables, and whole grain, high fiber foods, and limit saturated & cholesterol in your diet. (4) Manage Blood Pressure. If you have high blood pressure, you should have a cuff at home so that you can check your blood pressure regularly. Be sure you have a good cuff. An arm one is generally better than a wrist one. Bring the cuff to a doctor's appointment to validate that the measurements that your cuff are taking are accurate. Take your blood pressure twice daily when you are sitting down and relaxing. Record the numbers in a log and bring this log with you to your doctors' appointments. (5) Lose Weight if your BMI is above 25. A healthy BMI is between 19-25. To calculate Your BMI, you may use a Standard BMI Calculator on the NIH BMI website: <www.nhlbi.nih.gov/guidelines/obesity/BMI/bmicalc.htm>. Weigh oneself daily. If you are overweight, set a goal to lose weight. A pound a week loss if needed is a good target. (6) Reduce Blood Sugar. Limit foods and liquids with "added sugars." (Added sugars include sucrose, fructose, glucose, maltose, dextrose, high fructose corn syrup, corn syrup, concentrated fruit juice and honey). (7) Stop Smoking. If you smoke, quitting smoking is one of the best things that you can do for your health. Smoking increases your risk of heart attack, stroke, and peripheral vascular disease, which is a build-up of plaque in your arteries. Please discard all the cigarettes and lighters in your house. Have a plan for what you will do when you have the urge to smoke. Direct and second- hand smoke shortens your life as well as the lives of your family, friends and others around you. For your health and the health of those around you, please consider quitting! Proper Bending Body Mechanics: Maintain a wide stance with one foot slightly in front of the other. Keep your back straight. Bend utilizing the strength in your hips and knees. Do not bend at the waist. Maintain the lifted object at your waist-level close to your body. Avoid lifting weight that causes immediately pain or pain anywhere in the body afterwards. Smoking/Nicotine If there was ever one thing that you could do to increase your overall health, decrease your risk of cardiovascular problems by about 39% the second you make the choice, it is to STOP SMOKING. Your body's most instant gratification is the second you stop smoking. We have all heard the studies, read the articles but it is true, smoking is extremely bad for your overall health, and moreover it is detrimental to your bone health. Nicotine, IN ANY FORM, kills bone cells, prevents your body from healing frac tures, and significantly prolongs healing after surgery. In spine surgery specifically, it increases your risk of not healing your bones to create a fusion and increases your risk of having a revision surgery due to this up to 60%. I know it is hard. I know it feels impossible. But there are ways. Take control of your life. We are here to help you through it. And when you are ready, ask us and we can direct you to help if you desire. Use the START Plan to Quit Smoking (please visit the Helpguide.org website listed below for more information): S = Set a quit date. Choose a date within the next 2 weeks, so you have enough time to prepare without losing your motivation to quit. If you mainly smoke at work, quit on the weekend, so you have a few days to adjust to the change. T = Tell family, friends, and co-workers that you plan to quit. Let your friends and family in on your plan to quit smoking and tell them you need their support and encouragement to stop. Look for a quit haylee who wants to stop smoking as well. You can help each other get through the rough times. A = Anticipate and plan for the challenges you'll face while quitting. Most people who begin smoking again do so within the first 3 months. You can help yourself make it through by preparing ahead for common challenges, such as nicotine withdrawal and cigarette cravings. R = Remove cigarettes and other tobacco products from your home, car, and work. Throw away all your cigarettes (no emergency pack!), lighters, ashtrays, and matches. Wash your clothes and freshen up anything that smells like smoke. Shampoo your car, clean your drapes and carpet, and steam your furniture. T = Talk to your doctor about getting help to quit. Your doctor can prescribe medication to help with withdrawal and suggest other alternatives. If you can't see a doctor, you can get many products over the counter at your local pharmacy or grocery store, including the nicotine patch, nicotine lozenges, and nicotine gum. Resources for Quitting Smoking: <https://www.[place].gov/documents/[facility]/Quit_Tobacco_Resources_for_patients_313 480_7.pdf> Supplementation: Take recommended dosages of Vitamin D and Calcium to help fortify your bones and help them to heal. See your health maintenance packet for dosages and recommended levels. DVT/VTE prophylaxis: You will be given compression stockings from the hospital. Wear these daily for the first two weeks after surgery. You may take them off at night. You may be prescribed a medication to help thin your blood. Take this as directed. If you are not prescribed this medication, early and frequent ambulation has been shown to be the best prophylaxis to deep vein thrombosis and sequelae related to this event. Procedures: Revision [id number] decompression and fusion, bilateral SI joint fusions Patient Condition at Discharge: Good Plan - Discharge Summary Discharge Rx Participant: Yes New Discharge Prescriptions: New cefaDROXiL [Duricef] 500 mg PO Q12HR 5 Days #10 cap HYDROcodone/APAP 7.5-325MG [Bur[place] 7.5] 1 each PO Q4HR PRN #42 tab PRN Reason: Pain Gabapentin [Neurontin] 300 mg PO TID #60 cap Cyclobenzaprine [Flexeril] 10 mg PO BID PRN #30 tab PRN Reason: Muscle Spasm No Action Meloxicam [Mobic] 15 mg PO HS dilTIAZem HCL [dilTIAZem HCL 24Hr ER (LA)] 120 mg PO HS Furosemide [Lasix] 20 mg PO DAILY Loratadine-Pseudoeph 10-240 mg [Claritin-D 24 Hour] 1 tab PO Q2D Cholecalciferol (Vitamin D3) [Vitamin D3] 125 mcg PO Q2D Levothyroxine Sodium [Euthyrox] 88 mcg PO DAILY Multivitamins, Thera [Multivitamin (formulary)] 1 tab PO DAILY Nervive 1 tab PO DAILY Discharge Medication List Meloxicam [Mobic] 15 mg PO HS 03/08/21 [History] Levothyroxine Sodium [Euthyrox] 88 mcg PO DAILY 03/16/22 [History] Cholecalciferol (Vitamin D3) [Vitamin D3] 125 mcg PO Q2D 06/01/24 [History] Furosemide [Lasix] 20 mg PO DAILY 06/01/24 [History] Loratadine-Pseudoeph 10-240 mg [Claritin-D 24 Hour] 1 tab PO Q2D 06/01/24 [History] Multivitamins, Thera [Multivitamin (formulary)] 1 tab PO DAILY 06/01/24 [History] dilTIAZem HCL [dilTIAZem HCL 24Hr ER (LA)] 120 mg PO HS 06/01/24 [History] Nervive 1 tab PO DAILY 01/09/25 [History] Cyclobenzaprine [Flexeril] 10 mg PO BID PRN #30 tab 01/17/25 [Rx] Gabapentin [Neurontin] 300 mg PO TID #60 cap 01/17/25 [Rx] HYDROcodone/APAP 7.5-325MG [[place] 7.5] 1 each PO Q4HR PRN #42 tab 01/17/25 [Rx] cefaDROXiL [Duricef] 500 mg PO Q12HR 5 Days #10 cap 01/17/25 [Rx] Follow up Appointment(s)/Referral(s): Sunny Anderson DO [Primary Care Provider] - 1 Week Rick Kirkland DO [Doctor of Osteopathic Medicine] - 2 Weeks Activity/Diet/Wound Care/Special Instructions: Spine Discharge and Recovery Instructions Medications: See medication list All medication refills should be obtained through your primary care doctor or your clinic spine surgeon. Please discuss prescription refills at your follow up appointment. Do not call the hospital for medication refills. Dressing: Leave your dressing in place for a total of 5 days post operatively. Then you may remove your dressing and leave open to air. Keep the area clean and if not able to keep area clean, then cover with sterile gauze and tape. Showering: You may shower 3 days after your procedure allowing soap and water to run over incision. Do not scrub. Do not soak. Blot dry. Follow up: Please confirm a follow up appointment with your surgeon 3 weeks post operatively. Please make an appointment to follow up with your PCP in 1-2 weeks after surgery for evaluation '3 phase, 3-week plan' POST OP WEEKS 1-3 1. Lifting/carrying/pushing/pulling limited to less than 5 pounds. 2. Do not sit for longer than 15 minutes at one time. Get up and walk around. Prolonged sitting is NOT advised. If you lay down, see if you can tolerate laying down on you front (belly side) 3. Walk for periods of 15 minutes = 1 mile but no longer; do it multiple times times each day. 4. Ice your low back after activity. POST OP WEEKS 3-6 1. Lifting limited to less than 20 pounds. 2. Do not sit for longer than 30 minutes at a time. Frequently change positions. Use a sit-to stand workstation or take frequent breaks from sitting if you have returned to work. 3. Walk for 30 minutes each day. If possible, do these three or more times a day POST OP WEEKS 6+ At your 6-week appointment we will give you a physical therapy referral to focus on a core stabilization and strengthening program. You should also work on leg & buttock strengthening, hamstring & quadriceps stretching, and continue a low impact aerobic activity program such as swimming, walking, or riding a stationary bicycle. During the initial 6 weeks after your surgery, you are at the highest risk of re-injuring your spine. You should generally avoid BLT's (bending, lifting and twisting combination motions) and follow the above guidelines to reduce the chance of reinjury. You can anticipate post op appointments in our office at approximately 3 weeks and 6 weeks after your surgery. INCISION CARE: If your incision is not draining you do NOT need to cover it with a dressing. Keep your incision clean, dry and intact. In most cases, we apply skin glue, ophelia or sutures to the incision at the time of surgery. This will be like a crust or have the appearance of a scab and will fall off in time on its own. The stitches or ophelia need to be removed at 3 weeks post op appointment. You may begin to shower 3 days after surgery (this allows the glue to wong well). However, please avoid scrubbing the incision site or peeling off any of the skin glue. This will ensure optimal healing of your incision. Also, during this time avoid soaking the incision area in water - this includes swimming pools, hot tubs or baths. No ointments, lotions or oils on the incision until your surgeon allows. Leave ophelia, sutures or glue in place. Neurological dysfunction that comes on suddenly can also be a sign of a stroke. Below some common symptoms of a stroke are listed: B - balance difficulty such as sudden onset walking or leaning to one side - NEW E - eye problem such as sudden double vision or trouble seeing on one side - NEW F - Facial weakness or numbness on one side - NEW A - Arm or leg weakness or numbness on one side - NEW S - Slurred speech or difficulty with word finding - NEW T - Time is BRAIN! Call 911 as soon as you recognize these symptoms Diet: Consume a regular diet rich in vegetables and lean protein such as chicken or fish. You should consume in a ratio of approximately 20% fats|40% carbohydrates|40%protein. Vegetables, sweet potatoes, brown rice or quinoa are examples of good carbohydrates. Chips, white bread, cookies and sweets/sugar are examples of bad carbohydrates. Limit your bad carbs, go wild with good carbs. "Life's Simple 7" Guidelines as per [place] [employer] These will help you reclaim your life after surgery and charger operator helper in your recovery, keeping in mind your restrictions. (1) Get Active. Physical activity can help people lose weight, control high blood pressure and cholesterol, feel emotionally better, and sleep better. (2) Control Cholesterol. Avoid a diet high in saturated fat, trans fat, & cholesterol. Limit whole milk & cream, ice cream, butter, egg yolks, processed meats (like sausage and hot dogs), and fatty meats. Choose healthy foods that are low in saturated fat, trans fat and cholesterol which include: Fruits and vegetables, fiber rich grain products (like whole grain pasta and brown rice), lean meat such as chicken, fish, nuts, seeds, and legumes. (3) Eat Better. Eat small portions. Shop at the grocery with a list and do not stray from it. Tips for a healthy diet include: Limit sodium intake to less than 1500mg daily, avoid prepackaged, processed, and fast foods, choose a diet rich in fruits, vegetables, and whole grain, high fiber foods, and limit saturated & cholesterol in your diet. (4) Manage Blood Pressure. If you have high blood pressure, you should have a cuff at home so that you can check your blood pressure regularly. Be sure you have a good cuff. An arm one is generally better than a wrist one. Bring the cuff to a doctor's appointment to validate that the measurements that your cuff are taking are accurate. Take your blood pressure twice daily when you are sitting down and relaxing. Record the numbers in a log and bring this log with you to your doctors' appointments. (5) Lose Weight if your BMI is above 25. A healthy BMI is between 19-25. To calculate Your BMI, you may use a Standard BMI Calculator on the NIH BMI website: <www.nhlbi.nih.gov/guidelines/obesity/BMI/bmicalc.htm>. Weigh oneself daily. If you are overweight, set a goal to lose weight. A pound a week loss if needed is a good target. (6) Reduce Blood Sugar. Limit foods and liquids with "added sugars." (Added sugars include sucrose, fructose, glucose, maltose, dextrose, high fructose corn syrup, corn syrup, concentrated fruit juice and honey). (7) Stop Smoking. If you smoke, quitting smoking is one of the best things that you can do for your health. Smoking increases your risk of heart attack, stroke, and peripheral vascular disease, which is a build-up of plaque in your arteries. Please discard all the cigarettes and lighters in your house. Have a plan for what you will do when you have the urge to smoke. Direct and second- hand smoke shortens your life as well as the lives of your family, friends and others around you. For your health and the health of those around you, please consider quitting! Proper Bending Body Mechanics: Maintain a wide stance with one foot slightly in front of the other. Keep your back straight. Bend utilizing the strength in your hips and knees. Do not bend at the waist. Maintain the lifted object at your waist-level close to your body. Avoid lifting weight that causes immediately pain or pain anywhere in the body afterwards. Smoking/Nicotine If there was ever one thing that you could do to increase your overall health, decrease your risk of cardiovascular problems by about 39% the second you make the choice, it is to STOP SMOKING. Your body's most instant gratification is the second you stop smoking. We have all heard the studies, read the articles but it is true, smoking is extremely bad for your overall health, and moreover it is detrimental to your bone health. Nicotine, IN ANY FORM, kills bone cells, prevents your body from healing fractures, and significantly prolongs healing after surgery. In spine surgery specifically, it increases your risk of not healing your bones to create a fusion and increases your risk of having a revision surgery due to this up to 60%. I know it is hard. I know it feels impossible. But there are ways. Take control of your life. We are here to help you through it. And when you are ready, ask us and we can direct you to help if you desire. Use the START Plan to Quit Smoking (please visit the [employer]org website listed below for more information): S = Set a quit date. Choose a date within the next 2 weeks, so you have enough time to prepare without losing your motivation to quit. If you mainly smoke at work, quit on the weekend, so you have a few days to adjust to the change. T = Tell family, friends, and co-workers that you plan to quit. Let your friends and family in on your plan to quit smoking and tell them you need their support and encouragement to stop. Look for a quit haylee who wants to stop smoking as well. You can help each other get through the rough times. A = Anticipate and plan for the challenges you'll face while quitting. Most people who begin smoking again do so within the first 3 months. You can help yourself make it through by preparing ahead for common challenges, such as nicotine withdrawal and cigarette cravings. R = Remove cigarettes and other tobacco products from your home, car, and work. Throw away all your cigarettes (no emergency pack!), lighters, ashtrays, and matches. Wash your clothes and freshen up anything that smells like smoke. Shampoo your car, clean your drapes and carpet, and steam your furniture. T = Talk to your doctor about getting help to quit. Your doctor can prescribe medication to help with withdrawal and suggest other alternatives. If you can't see a doctor, you can get many products over the counter at your local pharmacy or grocery store, including the nicotine patch, nicotine lozenges, and nicotine gum. Resources for Quitting Smoking: <https://www.[place].gov/documents/[facility]/Quit_Tobacco_Resources_for_patients_313 480_7.pdf> Supplementation: Take recommended dosages of Vitamin D and Calcium to help fortify your bones and help them to heal. See your health maintenance packet for dosages and recommended levels. DVT/VTE prophylaxis: You will be given compression stockings from the hospital. Wear these daily for the first two weeks after surgery. You may take them off at night. You may be prescribed a medication to help thin your blood. Take this as directed. If you are not prescribed this medication, early and frequent ambulation has been shown to be the best prophylaxis to deep vein thrombosis and sequelae related to this event. Discharge Disposition: HOME SELF-CARE
[2025-01-17 14:24] VITALS: BP 124/80; PULSE 101; TEMP 98
--- NOTE | 2025-01-17 14:38 | P.PN ---
Subjective Progress Note Date: 01/17/25 - Reason for Consult Consult date: 01/16/25 Medical management status post L2 revision with decompression and fusion - History of Present Illness This is a pleasant 64-year-old female who was admitted under orthopedics and is status post L23-34 revision with decompression and fusion. Patient follows with Dr. Anderson in the outpatient setting with a past medical history of fibromyalgia, GERD, osteoarthritis, thyroid disorder, frequent hypoglycemic episodes, Shyla's, chronic pain syndrome, and obesity. Patient denies smoking, very rarely drinks and reports takes edible marijuana Gummies at night for sleep. Patient reports she did undergo surgical clearance with primary care provider prior to this intervention. Patient is doing relatively well and is also maintained on Lasix at home and has been undergoing further workup as patient has been having lower extremity swelling and generalized edema. Patient reports no history of heart failure. Will resume appropriate home medications. 01/17/2025 Patient is seen in follow-up today with no acute overnight issues noted. Patient reports to feeling well has been up and working with physical therapy and reports would like to go home today. Patient home medications reviewed and resumed as appropriate patient has been instructed to follow-up with primary care provider on discharge. Patient is afebrile and denies any chest pain or shortness of breath. Patient reports tolerating diet with no reported nausea or vomiting. Patient is passing gas but has not had a bowel movement as of yet. Recommend stool softeners as needed especially with narcotics. Review of systems: Constitutional: No reports of fatigue, fever, or chills Cardiovascular: No reports of chest pain or palpitations Respiratory: No reports of shortness of breath or cough GI: No reports of nausea, vomiting, or diarrhea : No reports of dysuria or retention Neurovascular: reports of generalized weakness All medications have been reviewed The rest of the 14-point review of systems is negative. PHYSICAL EXAMINATION: GENERAL: The patient is alert and oriented x3, not in any acute distress. Well developed, well nourished. Elderly appearing, obese HEENT: Pupils are round and equally reacting to light. EOMI. No scleral icterus. No conjunctival pallor. Normocephalic, atraumatic. No pharyngeal erythema. No thyromegaly. CARDIOVASCULAR: S1 and S2 muffled PULMONARY: Diminished breath sounds bilaterally otherwise chest is clear to auscultation, no wheezing or crackles. ABDOMEN: Soft, nontender, nondistended, normoactive bowel sounds. No palpable organomegaly. MUSCULOSKELETAL: No joint swelling or deformity. EXTREMITIES: No cyanosis, clubbing, or pedal edema. Bilateral upper and lower extremity edema, nonpitting noted NEUROLOGICAL: Gross neurological examination did not reveal any focal deficits. Diffusely weak SKIN: No rashes. Assessment: Status post L2-3, 34 revision with decompression and fusion History of severe stenosis of the lumbar spine History of fibromyalgia History of GERD History of Shyla's History of osteoarthritis History of thyroid disorder History of chronic pain syndrome THC use Obesity with a BMI of 39.1 GI prophylaxis DVT prophylaxis Full code Plan: Patient admitted under orthopedic services reports to doing well and has been up and working with physical therapy Home medications reviewed and resumed as appropriate and will resume Lasix as patient chronically takes for generalized edema Encourage incentive spirometer use at least 10 times every hour while awake and encourage patient to take home and continue using Recommend sitting up in the chair with each meal and frequently as tolerated. Patient reports has been up and walking to the bathroom and has support at the home and plans on being discharged today. Patient is medically stable once cleared by orthopedics. We will continue to follow with orthopedics during hospitalization. Thank you kindly for this consultation. The impression and plan of care has been dictated by Maryam Mosley, Nurse Practitioner as directed. Dr. Gabriela MD I have performed a history and examination and MDM of this patient, discussed the same with the dictator, and agree with the dictator's assessment and plan as written ,documented as a scribe. Based on total visit time, I have performed more than 50% of the visit. Past Medical History Objective - Vital Signs Vital signs: Vital Signs Temp 98.1 F 01/17/25 07:05 Pulse 63 01/17/25 07:05 Resp 18 01/17/25 07:05 BP 156/67 01/17/25 07:05 Pulse Ox 99 01/17/25 07:05 FiO2 Intake & Output 01/16/25 01/17/25 01/17/25 18:59 06:59 18:59 Output Total 763 160 Balance -763 -160 Output: Drainage 560 160 Back 560 160 Urine 203 Other: Voiding Method Toilet Toilet # Voids 5 - Labs CBC & Chem 7: 01/16/25 02:59 03/12/25 02:59 Labs: Abnormal Lab Results - Last 24 Hours (Table) 01/16/25 Range/Units 02:59 Anion Gap 12.30 H (4.00-12.00) mmol/L Glucose 213 H (70-110) mg/dL
[2025-01-17] MEDS ORDERED: DILTIAZEM CD 120 MG CAP.ER.24H PO SCH (21:00)
== END 2025-01-17 16:02 | disposition home or self-care (01) | DRG 427 ==
LOC: 2ORMAIN 11:24 → 4SSUR 18:15
PROVIDERS: ADMIT Orthopaedic Surgery; ATTEND Orthopaedic Surgery
PROC: 0SG1071 Fusion of 2 or more Lumbar Vertebral Joints with Autologous Tissue Substitute, Posterior Approach, Posterior Column, Open Approach (ICD-10-PCS; 2025-01-15)
PROC: 0SP004Z Removal of Internal Fixation Device from Lumbar Vertebral Joint, Open Approach (ICD-10-PCS; 2025-01-15)
PROC: 0SH804Z Insertion of Internal Fixation Device into Left Sacroiliac Joint, Open Approach (ICD-10-PCS; 2025-01-15)
PROC: 0SH704Z Insertion of Internal Fixation Device into Right Sacroiliac Joint, Open Approach (ICD-10-PCS; 2025-01-15)
PROC: 0ST20ZZ Resection of Lumbar Vertebral Disc, Open Approach (ICD-10-PCS; 2025-01-15)
PROC: 01NB0ZZ Release Lumbar Nerve, Open Approach (ICD-10-PCS; 2025-01-15)
PROC: 00NY0ZZ Release Lumbar Spinal Cord, Open Approach (ICD-10-PCS; 2025-01-15)
PROC: 4A11X4G Monitoring of Peripheral Nervous Electrical Activity, Intraoperative, External Approach (ICD-10-PCS; 2025-01-15)
PROC: 03HY32Z Insertion of Monitoring Device into Upper Artery, Percutaneous Approach (ICD-10-PCS; 2025-01-15)
PROC: 4A133B1 Monitoring of Arterial Pressure, Peripheral, Percutaneous Approach (ICD-10-PCS; 2025-01-15)
PROC: 4A133J1 Monitoring of Arterial Pulse, Peripheral, Percutaneous Approach (ICD-10-PCS; 2025-01-15)
PROC: 02HV33Z Insertion of Infusion Device into Superior Vena Cava, Percutaneous Approach (ICD-10-PCS; 2025-01-15)
PROC: 8E0WXBF Computer Assisted Procedure of Trunk Region, With Fluoroscopy (ICD-10-PCS; 2025-01-15)
PROC: 0SG10A0 Fusion of 2 or more Lumbar Vertebral Joints with Interbody Fusion Device, Anterior Approach, Anterior Column, Open Approach (ICD-10-PCS; principal; 2025-01-15 13:00)
DX: M96.0 Pseudarthrosis after fusion or arthrodesis (principal); D62 Acute posthemorrhagic anemia; E66.9 Obesity, unspecified; E06.3 Autoimmune thyroiditis; T84.038A Mechanical loosening of other internal prosthetic joint, initial encounter; M48.061 Spinal stenosis, lumbar region without neurogenic claudication; M47.26 Other spondylosis with radiculopathy, lumbar region; G89.4 Chronic pain syndrome; M79.7 Fibromyalgia; W11.XXXA Fall on and from ladder, initial encounter; Z68.39 Body mass index [BMI] 39.0-39.9, adult; Z79.890 Hormone replacement therapy; Z79.899 Other long term (current) drug therapy; Z82.49 Family history of ischemic heart disease and other diseases of the circulatory system; M19.90 Unspecified osteoarthritis, unspecified site; Z96.611 Presence of right artificial shoulder joint; Z98.51 Tubal ligation status; Z88.0 Allergy status to penicillin; Z88.5 Allergy status to narcotic agent; Z88.7 Allergy status to serum and vaccine
CPT/HCPCS: 71045; 72100; 72131; 80048; 85025